=== PATIENT | male | born 1950 | race Caucasian/White ===

== ENCOUNTER → 2024-06-04 | Outpatient (CLI) | payer OTHER, SELFPAY ==
--- NOTE | 2024-06-04 | PROSBIL_PTH ---
PATHOLOGY RESULTS PATIENT: FAMILIA GLEASON LOC: [facility] U#:[id number] AGE/SX: 73/M ROOM: RE06/04/[address]: Dr. Sarabjit King MD : 1950 BED: DIS: 06/04/2024 SPEC #: [id number] RECD: 06/05/24 09:52 STATUS: JAY FERNANDO #: [id number] BETTINA: 06/04/24 00:[address]: Sarabjit King DEPT: SURGICAL PATHOLOGY RECD BY: Randee Christian ENTERED: 06/05/24 09:53 SP TYPE: PROST BX Tissues: PROSTATE RIGHT PROSTATE RIGHT PROSTATE RIGHT PROSTATE LEFT PROSTATE LEFT PROSTATE LEFT Procedures: PROSTATE BX HEADER OPERATION: Prostate biopsy PRE-OP DIAGNOSIS: Elevated PSA TISSUE SUBMITTED: A - Right apex, B - Right mid, C - Right base, D - Left apex, E - Left mid, F - Left base MICROSCOPIC DIAGNOSIS A. Right prostate, apex, core biopsy: Prostatic tissue, negative for malignancy. Focal mild chronic inflammation. B. Right prostate, mid, core biopsy: Focal high-grade prostatic intraepithelial neoplasia (HGPIN). C. Right prostate, base, core biopsy: Prostatic adenocarcinoma. Quique grade: 5+4=9 Number of cores involved: 1/1 Proportion of tissue involved: ~80% Perineural invasion: Not identified. Greatest tumor length: 0.8cm Chronic inflammation. D. Left prostate, apex, core biopsy: Prostatic adenocarcinoma. Lancing grade: 5+4=9 Number of cores involved: 1/1 Proportion of tissue involved: ~70 % Perineural invasion: Suspected Greatest tumor length: 0.7 cm E. Left prostate, mid, core biopsy: Prostatic adenocarcinoma. Lancing grade: 4+3=7 Number of cores involved: 1/1 Proportion of tissue involved: ~90% Perineural invasion: Not identified. Greatest tumor length: 1.0cm Chronic inflammation. See comment. F. Left prostate, base, core biopsy: Prostatic adenocarcinoma. Quique grade: 4+3=7 Number of cores involved: 1/1 Proportion of tissue involved: ~90% Perineural invasion: Not identified. Greatest tumor length: 1.0 cm See comment. 06/06/2024 COMMENT E & F. Focal tertiary pattern, Lancing grade 5 is also noted. MICROSCOPIC DESCRIPTION Slides are reviewed. GROSS DESCRIPTION A - Received is one container designated prostate, right apex. The specimen consists of one elongated fragment of light riley-white soft tissue measuring 0.7 cm in length and 0.1 cm in diameter. The specimen is totally submitted in one cassette. B - Received is one container designated prostate, right mid. The specimen consists of one elongated fragments of light riley-white soft tissue measuring 0.7 cm in length and 0.1 cm in diameter. The specimen is totally submitted in one cassette. C - Received is one container designated prostate, right base. The specimen consists of one elongated fragments of light riley-white soft tissue measuring 1.0 cm in length and 0.1 cm in diameter. The specimen is totally submitted in one cassette. D - Received is one container designated prostate, left apex. The specimen consists of one elongated fragments of light riley-white soft tissue measuring 1.2 cm in length and 0.1 cm in diameter. The specimen is totally submitted in one cassette. E - Received is one container designated prostate, left mid. The specimen consists of one elongated fragments of light riley-white soft tissue measuring 1.2 cm in length and 0.1 cm in diameter. The specimen is totally submitted in one cassette. F - Received is one container designated prostate, left base. The specimen consists of one elongated fragments of light riley-white soft tissue measuring 1.3 cm in length and 0.1 cm in diameter. The specimen is totally submitted in one cassette. / [email or web address] 06/05/2024 TC:0 [facility]: [id number] [phone]
== END | disposition home or self-care (01) ==
PROVIDERS: Referring Provider Urology; Visit Provider Urology
DX: R97.20 Elevated prostate specific antigen [PSA] (principal)
CPT/HCPCS: 88305; G0416

== ENCOUNTER → 2024-07-02 | Outpatient (CLI) | payer SELFPAY, OTHER | END | disposition home or self-care (01) | PROVIDERS: PCP Nurse Practitioner Family; Referring Provider Urology; Visit Provider Urology | DX: C61 Malignant neoplasm of prostate (principal) | CPT/HCPCS: 78815; A9595 ==

== ENCOUNTER 2025-06-23 17:05 | Emergency (ER) | payer OTHER, SELFPAY ==
[2025-06-23 17:07] VITALS: BP 214/106; PULSE 72; RESP 18; TEMP 36.2; O2SAT 98; BMI 31.4
--- NOTE | 2025-06-23 17:40 | EKG12_ITS ---
Test Reason : Blood Pressure : */* mmHG Vent. Rate : 69 BPM Atrial Rate : 69 BPM P-R Int : 158 ms QRS Dur : 98 ms QT Int : 404 ms P-R-T Axes : 13 -30 25 degrees QTcB Int : 432 ms Normal sinus rhythm Left axis deviation Incomplete right bundle branch block Abnormal ECG Confirmed by SUJEY ALLRED, EHNRY ([id number]), fan mail editor AMY MERCEDES ([id number]) on 06/25/2025 9:12:50 AM Referred By: Confirmed By: HENRY RM MD
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
--- NOTE | 2025-06-23 18:00 | RAD_ITS ---
PROCEDURE: CHEST 1 VIEW (PORTABLE) 06/23/2025 REASON FOR EXAM: CHEST PAIN TECHNIQUE: Frontal view of the chest. COMPARISON: None. FINDINGS: Lungs/Pleura: Clear. No focal consolidation, pneumothorax or sizable pleural effusion. Probable subcentimeter calcified granulomas in the right lung base. Heart/Mediastinum: Mildly enlarged. No significant vascular congestion. Bones/Soft tissues: Mild degenerative changes of the spine. RAD/Chest 1 View (Portable) IMPRESSION: No evidence of acute cardiopulmonary disease. Reading Location: [id number]
[2025-06-23 18:06] VITALS: BP 181/88; PULSE 68; RESP 18; O2SAT 98
[2025-06-23 18:07] LABS: Hematocrit 42.0 % (40-54); Hemoglobin 14.1 g/dL (13.0-16.5); Immature Granulocytes Count 0.010 X10^3/uL (0.0-0.0); Mean Corp Hgb Conc 33.6 g/dL (32-36); Mean Corpuscular Volume 86.8 fL (80-94); Mean Platelet Vol. 8.9 fl (6.2-12.0); NRBC Flagged by Analyzer 0 % (0-5); Platelet Count 257 K/mm3 (150-450); RBC Distribution Width CV 13.1 % (11.6-14.6); RBC Distribution Width SD 41.1 fl (35.1-43.9); Red Blood Count 4.84 M/mm3 (4.6-6.2); White Blood Count 4.5 K/mm3 (4.4-11.0)
[2025-06-23 18:44] LABS: Anion Gap 10 (5-15); BUN 15 mg/dL (4-19); BUN/Creat Ratio 22.5 RATIO (10-20); Calcium,Total 9.4 mg/dL (7.6-11.0); Carbon Dioxide 25.6 mmol/L (21.0-32.0); Chloride 105 mmol/L (98-108); Estimated Creatinine Clearance 92.89 ml/min (50-250); Glucose 170 mg/dL (70-99); Potassium 3.7 mmol/L (3.3-5.1); Troponin T High Sensitivity 12 ng/L (<=22)
[2025-06-23 19:00] VITALS: BP 170/90; PULSE 68; RESP 14; O2SAT 97
[2025-06-23 20:00] VITALS: BP 171/80; PULSE 68; RESP 15; O2SAT 99
[2025-06-23 20:34] LABS: Troponin T High Sens 2 HR 11 ng/L (<=22)
[2025-06-23 21:00] VITALS: BP 181/81; PULSE 65; RESP 15; O2SAT 97
[2025-06-23 21:19] VITALS: BP 181/81; PULSE 64; RESP 18; TEMP 36.6; O2SAT 99
== END 2025-06-23 21:23 | disposition home or self-care (01) ==
PROVIDERS: Emergency Provider Emergency Medicine; PCP Nurse Practitioner Family; Visit Provider Emergency Medicine
DX: R07.9 Chest pain, unspecified (principal); E11.9 Type 2 diabetes mellitus without complications; I10 Essential (primary) hypertension; R06.02 Shortness of breath; Z79.84 Long term (current) use of oral hypoglycemic drugs; Z79.82 Long term (current) use of aspirin
CPT/HCPCS: 71045; 80048; 84484; 85025; 93005; 99284; A4216

== ENCOUNTER → 2025-06-25 | Outpatient (CLI) | payer SELFPAY, OTHER ==
--- OUTSIDE RECORDS SUMMARY | 2025-06-25 05:53 | XMS RPT_ITS | CCD ---
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 Name Role Phone MIRLANDE ROSENBERGAshu Unavailable Unavailable UMESH PALOMINO Unavailable Unavailable ELODIA DESAI Attending Unavailable ELODIA DESAI Primary Care Unavailable ELODIA DESAI Admitting Unavailable UMESH PALOMINO Consulting Unavailable PROVIDER, UNKNOWN Consulting Unavailable Umesh Palomino DO Primary Care Provider [phone] Sarabjit King Attending Unavailable Marysol, Faviola Jyoti Primary Care Unavailable FernandoSarabjit nascimento Attending Unavailable Marysol, Faviola Jyoti Primary Care Unavailable Sarabjit King Referring Unavailable Sarabjit King Referring Unavailable Sarabjit King Attending Unavailable MARYSOL DRUMMOND-AYUSH, FAVIOLA Primary Care Physician MARYSOL DRUMMOND-AYUSH, FAVIOLA Primary Care Unavaila phani KATZ MD, DR SUAREZ Attending Unavailab UMESH Villeda Primary Care Unavailable JJ PETERSEN Attending UnavailJJ Meyer Admitting UnavailShannon Campbell CNP Primary Care Provider SHANNON DOE Primary Care Unavailable SYL AJ Attending Unavailable UMESH PALOMINO Primary Care Unavailable TATIANA CARRERO Referring Unavailable SHANNON DOE Primary Care Unavailable CHET JOYCE Attending Unavailwestley e UMESH PALOMINO Primary Care Unavailable FERNANDEZ MARTE Referring Unavailable UMESH PALOMINO Primary Care Unavailable TATIANA CARRERO Referring Unavailable UMESH PALOMINO Primary Care Unavailable FERNANDEZ MARTE Referring Unavailable FERNANDEZ MARTE Attending Unavailable UMESH PALOMINO Primary Care Unavailable FERNANDEZ MARTE Referring Unavailable UMESH PALOMINO Referring Unavailable UMESH PALOMINO Primary Care Unavailable FERNANDEZ MARTE Attending Unavailable Allergies Allergy Classification Reported Allergen(s) Allergy Type Date of Onset Reaction(s) Facility (20 sources) HMG-CoA reductase inhibitor; Translations: [[id number] REDUCTASE INHIBITORS] Propensity to adverse reactions to drug 10-14-2020 Unknown [facility] (20 sources) Lisinopril; Translations: [LISINOPRIL] Drug Allergy 10-14-2020 Unknown [facility] (1 source) HMG-CoA reductase inhibitor; Translations: [statins] Drug allergy [facility] Medications Current Medications Medication Drug Class(es) Dates Sig (Normalized) Sig (Original) aspirin 81 mg delayed release oral tablet (18 sources) Platelet Aggregation Inhibitor, Nonsteroidal Anti-inflammatory Drug take 1 tablet by mouth once daily aspirin, enteric coated (ASPIRIN, ENTERIC COATED) 81 mg EC tablet Take 81 mg by mouth once daily. Active Diltiazem Hydrochloride ER 120 mg/24 hours oral capsule, extended release (1 source) Start: 10-28-2015 take 1 capsule by mouth every hour, then take 1 capsule by mouth twice daily Diltiazem Hydrochloride ER 120 mg/24 hours oral capsule, extended release Dose : 120 mg = 1 cap(s), Oral, BID, 0 Refill(s) Start Date: 10/28/15 Status: Ordered Repeat number: 1 flecainide acetate 50 mg oral tablet (1 source) Antiarrhythmic Start: 10-29-2015 flecainide 50 mg oral tablet Dose : 50 mg = 1 tab(s), Oral, q12h, PRN arrythmias, # 180 tab(s), 0 Refill(s) Start Date: 10/29/15 Status: Ordered Quantity: 180.0 Unit: tab(s) Repeat number: 1 glipiZIDE 5 mg oral tablet (19 sources) Sulfonylurea Start: 10-28-2015 glipiZIDE 5 mg oral tablet Dose : 5 mg = 1 tab(s), Oral, qDay, # 30 tab(s), 0 Refill(s) Start Date: 10/28/15 Status: Ordered Quantity: 30.0 Unit: tab(s) Repeat number: 1 insulin NPH human isophane (NOVOLIN N FLEXPEN SUBCUTANEOUS) (18 sources) insulin NPH kellen n isophane (NOVOLIN N FLEXPEN SUBCUTANEOUS) Inject subcutaneously. Active magnesium oxide 420 mg oral tablet (1 source) Start: 10-28-2015 magnesium oxide 420 mg oral tablet Dose : 420 mg = 1 tab(s), Oral, BID, 0 Refill(s) Start Date: 10/28/15 Status: Ordered Repeat number: 1 metFORMIN hydrochloride 1000 mg oral tablet (19 sources) Biguanide Start: 10-29-2015 metFORMIN 1000 mg oral tablet Dose : 1,000 mg = 1 tab(s), Oral, BID, # 180 tab(s), 0 Refill(s) Start Date: 10/29/15 Status: Ordered Quantity: 180.0 Unit: tab(s) Repeat number: 1 omega-3 fatty acids (SUPER OMEGA-3 ORAL) (18 sources) omega-3 fatty ac ids (SUPER OMEGA-3 ORAL) Take by mouth twice daily. Active omega-3 polyunsaturated fatty acids 350 mg oral capsule (1 source) Start: 10-28-2015 omega-3 polyunsaturated fatty acids 350 mg oral capsule Dose : 350 mg = 1 cap(s), Oral, BID, # 30 cap(s), 0 Refill(s) Start Date: 10/28/15 Status: Ordered Quantity: 30.0 Unit: cap(s) Repeat number: 1 potassium chloride 20 meq oral tablet (1 source) Start: 10-28-2015 potassium chloride 20 mEq oral tablet, extended release Dose : 10 mEq = 0.5 tab(s), Oral, qDay, # 30 tab(s), 0 Refill(s) Start Date: 10/28/15 Status: Ordered Quantity: 30.0 Unit: tab(s) Repeat number: 1 rivaroxaban 20 mg oral tablet (1 source) Factor Xa Inhibitor Start: 10-28-2015 Xarelto 20 mg oral tablet Dose : 20 mg = 1 tab(s), Oral, with supper, 0 Refill(s) Start Date: 10/28/15 Status: Ordered Repeat number: 1 tamsulosin hydrochloride 0.4 mg oral capsule (10 sources) alpha-Adrenergic Gillian Start: 09-23-2024 take 2 capsules by mouth once daily at bedtime tamsulosin (FLOMAX) 0.4 mg Take 2 capsules by mouth daily at bedtime. 60 capsule 6 09/23/2024 Active Completed/Discontinued Medications Medication Drug Class(es) Dates Sig (Normalized) Sig (Original) ciprofloxacin 500 mg oral tablet (10 sources) Quinolone Antimicrobial Start: 09-23-2024 End: 11-27-2024 take 1 tablet by mouth twice daily ciprofloxacin HCl (CIPRO) 500 mg tablet Take 1 tablet by mouth two times a day. 20 tablet 09/23/2024 11/27/2024 Discontinued (Course of therapy completed) telmisartan 40 mg oral tablet (18 sources) Angiotensin 2 Receptor Gillian End: 11-27-2024 take 1 tablet by mouth once daily telmisartan (MICARDIS) 40 mg tablet Take 40 mg by mouth once daily. 11/27/2024 Discontinued (Course of therapy completed) Problems Active Problems Problem Classification Problem Date Documented Date Episodic/Chronic Cancer of prostate (10 sources) Malignant tumor of prostate; Translations: [Malignant neoplasm of prostate] Onset: 07-28-2024 07-22-2024 Chronic Cancer of prostate (1 source) Personal history of malignant neoplasm of prostate; Translations: [Encounter for follow-up surveillance of prostate cancer] Onset: 04-17-2025 Episodic Cardiac dysrhythmias (20 sources) Paroxysmal atrial fibrillation; Translations: [Paroxysmal atrial fibrillation] Onset: 09-30-2021 Resolved: 09-30-2021 09-30-2021 Chronic Cardiac dysrhythmias (1 source) Palpitations 10-28-2015 Episodic Chronic obstructive pulmonary disease and bronchiectasis (1 source) Bronchitis; Translations: [Bronchitis, not specified as acute or chronic] Onset: 09-14-2024 Episodic Conduction disorders (16 sources) Incomplete right bundle branch block; Translations: [Unspecified right bundle-branch block] Onset: 09-05-2024 09-05-2024 Chronic Diabetes mellitus without complication (20 sources) Type 1 diabetes mellitus without complications; Translations: [Type 2 diabetes mellitus without complication] Onset: 09-30-2021 09-30-2021 Chronic Diverticulosis and diverticulitis (1 source) Diverticulosis of large intestine without perforation or abscess without bleeding; Translations: [Diverticulosis of large intestine without perforation or abscess without bleeding] Onset: 05-19-2023 Chronic Essential hypertension (20 sources) Essential (primary) hypertension; Translations: [Essential hypertension] Onset: 09-30-2021 09-30-2021 Chronic Heart valve disorders (6 sources) Aortic valve sclerosis; Translations: [Other nonrheumatic aortic valve disorders] Onset: 09-30-2021 09-30-2021 Chronic Hemorrhoids (2 sources) Residual hemorrhoidal skin tags; Translations: [Other hemorrhoids] Onset: 05-19-2023 Episodic Hyperplasia of prostate (14 sources) Benign prostatic hyperplasia; Translations: [Benign prostatic hyperplasia with lower urinary tract symptoms] Onset: 09-05-2024 09-05-2024 Chronic Other aftercare (1 source) Long-term current use of drug therapy; Translations: [skilled nursing (current) use of antithrombotics/antip latelets] 11-24-2024 Episodic Other aftercare (1 source) skilled nursing (current) use of antithrombotics/antip latelets; Translations: [Encounter for long-term (current) use of antiplatelets/antithr ombotics] Onset: 11-27-2024 Episodic Other aftercare (1 source) Encounter for follow-up examination after completed treatment for conditions other than malignant neoplasm; Translations: [Radiotherapy follow-up] Onset: 04-17-2025 Episodic Other aftercare (1 source) Encounter for follow-up examination after completed treatment for malignant neoplasm; Translations: [Encounter for follow-up surveillance of prostate cancer] Onset: 04-17-2025 Episodic Other male genital disorders (1 source) Erectile dysfunction following radiation therapy; Translations: [Erectile dysfunction following radiation therapy] Onset: 04-17-2025 Chronic Other nutritional; endocrine; and metabolic disorders (1 source) Obesity, unspecified; Translations: [Obesity, unspecified] Onset: 05-19-2023 Chronic Other nutritional; endocrine; and metabolic disorders (14 sources) Body mass index 30+ - obesity; Translations: [Body mass index (BMI) 30.0-30.9, adult] Onset: 09-05-2024 09-05-2024 Chronic Other nutritional; endocrine; and metabolic disorders (1 source) H/O: diabetes mellitus; Translations: [Personal history of other endocrine, nutritional and metabolic disease] 11-24-2024 Episodic Other nutritional; endocrine; and metabolic disorders (1 source) Personal history of other endocrine, nutritional and metabolic disease; Translations: [History of diabetes mellitus] Onset: 11-27-2024 Episodic Other screening for suspected conditions (not mental disorders or infectious disease) (4 sources) Encounter for screening for malignant neoplasm of colon; Translations: [Elevated prostate specific antigen [PSA]] Onset: 05-19-2023 Episodic Other upper respiratory infections (14 sources) H/O: infectious disease; Translations: [Acute upper respiratory infection, unspecified] Onset: 09-05-2024 09-05-2024 Episodic Residual codes; unclassified (20 sources) Sleep apnea; Translations: [Sleep apnea, unspecified] 10-16-2020 Chronic Residual codes; unclassified (19 sources) Non-smoker; Translations: [Other specified health status] Onset: 09-30-2021 09-30-2021 Episodic Past or Other Problems Problem Classification Problem Date Documented Da te Episodic/Chronic Other aftercare (18 sources) Long-term current use of anticoagulant; Translations: [skilled nursing (current) use of anticoagulants] Onset: 09-30-2021 09-30-2021 Episodic Residual codes; unclassified (20 sources) Past history of procedure; Translations: [Personal history of other medical treatment] Onset: 10-21-2014 09-30-2021 Episodic Residual codes; unclassified (1 source) Other specified health status; Translations: [Non-smoker] Onset: 09-30-2021 Episodic Results Test Name Value Interpretation Reference Range Facility [facility] 04-17-2025 CNOV Office Visit (LANEY ) HUBER PETERSON ([id number]) 1950 M Date Time Provider Department 04/17/25 11:00 AM CHET JOYCE During your visit today, we recorded the following information about you: Temperature Pulse Respiration Blood pressure 97.7 degrees 70/minute 18/minute 155/74 Weight 94.6 kg Chet Joyce APRN.CNP 04/17/2025 1:50 PM Signed Radiation Oncology - Follow Up Note SURV[facility]ORSHIP PATIENT NAME: Huber Peterson PATIENT DIAGNOSIS: Huber Peterson is a 74 year old gentleman with adenocarcinoma of the prostate, initial PSA of 13.27 ng/mL, Sigel of 4+5=9, T2a. Status post I-125 seed implantation on 09/24/2024. INTERVAL HISTORY: The patient presents for routine follow-up. He was last seen on by Patient was diagnosed with prostate cancer and underwent brachytherapy in August. Prior to treatment, his PSA was 18 ng/mL. In January, his PSA decreased to 5.09 ng/mL. He has been monitored by his primary care provider, who orders PSA tests every six months. Since treatment, he reports urinary symptoms, including a weak stream, urgency, and occasional incomplete emptying, which have improved over the past few weeks. He denies nocturia and significant incontinence but notes that drinking water triggers frequent urination. He experiences pain when delaying urination, sometimes resulting in hematuria, but a recent urinalysis showed no infection. He is currently taking tamsulosin 0.4 mg once daily in the evening, which has helped with symptoms. He attempted to discontinue tamsulosin but found it difficult to initiate urination without it. He reports regular bowel movements (1-2 per day) without hematochezia. He is not sexually active and is not taking medication for erectile dysfunction. He denies chest pain, shortness of breath, fatigue, or new joint swelling. He reports a sore knee, which has improved. He maintains a stable weight, has a good appetite, and remains physically active through work. He denies smoking or alcohol use. He is up to date on preventive health measures, including a colonoscopy within the last two years, which showed no significant findings. PSA HISTORY: 01/2025: 5 waiting for scanned documents from OSH patient to fax 10/14/2024 18.53 09/05/2024 22.31 ALLERGIES: Allergies: Lisinopril Unknown Dsorstt-Pbt-Vzw Red* Unknown MEDICATIONS: Current Outpatient Medications on File Prior to Visit Medication Sig tamsulosin (FLOMAX) 0.4 mg Take 2 capsules by mouth daily at bedtime. (Patient taking differently: Take 0.4 mg by mouth two times a day.) insulin NPH human isophane (NOVOLIN N FLEXPEN SUBCUTANEOUS) Inject subcutaneously. omega-3 fatty acids (SUPER OMEGA-3 ORAL) Take by mouth twice daily. glipiZIDE (GLUCOTROL) 5 mg tablet Take 5 mg by mouth three times daily. aspirin, enteric coated (ASPIRIN, ENTERIC COATED) 81 mg EC tablet Take 81 mg by mouth once daily. metFORMIN (GLUCOPHAGE) 1,000 mg tablet Take 1,000 mg by mouth three times daily. No current facility-administered medications on file prior to visit. The patient reports the following pertinent history: D/N = variable based intake /0 Hematuria: No Dysuria: Yes Incontinence: Yes Urgency: moderate Frequency (urinate again less than 2hrs after you finished): 2 (less than half the time) Incomplete emptyin (less than 1 time in 5) Intermittency (stopping and starting several times during urination): 0 (not at all) Weak stream: 2 (less than half the time) Straining( push or strain to urinate): 1 (less than 1 time in 5) Medications to aid urination: flomax 1 cap per night Bowel movement frequency: 1-2/day Bowel movement quality: normal Blood per rectum: No Last Colonoscopy:with the last 2 years Sexual activity: Unable to maintain erections Erectile dysfunction: Medications for erectile dysfunction: ADT:no REVIEW OF SYSTEMS: Constitutional: (-) weight change, (-) fatigue, (-) decreased appetite, (-) sleep disturbance Cardiovascular: (-) chest pain Respiratory: (-) shortness of breath Gastrointestinal: (-) hematochezia Genitourinary: (+) slow urinary stream, (+) urinary urgency, (+) urinary frequency, (+) incomplete bladder emptying, (+) straining to void, (+) hematuria, (+) dysuria, (+) urinary incontinence, (+) erectile dysfunction, (-) nocturia Musculoskeletal: (+) knee pain Neurological: (+) left leg pain Survivorship Review of Systems Patient identified the following survivorship concerns related to his recent cancer diagnosis and treatment: Cardiac Toxicity: No Emotional Health: No Cognitive Function: No Fatigue/Sleep: No Lymphedema: No Pain: No Endocrine: No Sexual Function: Yes, Yes Concerns regarding sexual function, sexual activity, sexual relationships or sex life? No Fertility difficulties? No Healthy Lifestyle: Ye (more content not included)... Normal [facility] CNOVon 11-27-2024 CNOV Office Visit (CAUNDO ) HUBER PETERSON ([id number]) 1950 M Date Time Provider Department 11/27/24 9:00 AM SYL AJ During your visit today, we recorded the following information about you: Pulse Blood pressure Weight Height 78/minute 130/82 93.2 kg 1.753 m Syl Aj APRN.HOSPICE AIDE 11/27/2024 1:08 PM S[address] [facility] Department of Cardiology Referring Provider: No ref. provider found Date: November 27, 2024 Chief Complaint: Established patient, in atrial fibrillation Subjective: Huber Peterson is a 74 year old male who presents with a history of atrial fibrillation, status post-ablation, presenting for evaluation of cholesterol management and follow-up. The patient reports well-controlled blood glucose levels. Recent labs from wellness check,finding total cholesterol 280 and LDL 144. He recently started a new hypercholesterolemia (unsure of the name of the medication), prescribed by his clinician, after experiencing myalgias with prior statin therapy. He also takes fish oil supplements. He consumes cheese almost daily and acknowledges the need to reduce his intake. He denies any bleeding symptoms such as epistaxis, melena, or easy bruising. He has a history of atrial fibrillation and underwent an ablation performed by Dr. De Los Santos. He denies experiencing palpitations, tachycardia, or chest pain. He notes occasional dyspnea, which he attributes to age. He denies any new onset of dyspnea. He underwent brachytherapy for prostate cancer in August and is currently taking tamsulosin, one capsule in the morning and one in the evening, to manage urinary symptoms and assist with blood pressure control. He denies any episodes of dizziness. He is monitored with PSA levels every six months. He has a family history of prostate cancer in his grandfather. 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 anticoagulants on Xarelto 20mg Nonrheumatic atrial fibrillation (HCC) Personal history of other diseases of the circulatory system Prostate cancer (HCC) Sleep apnea Status post cryoablation 10/29/2015 successful isolation of all four pulmonary veins PAST SURGICAL HISTORY Procedure Laterality Date LEG SURGERY HX 10/2017 leg fx PAST SURGICAL HISTORY OF surgery for sleep apnea PAST SURGICAL HISTORY OF 09/24/2024 BRCA therapy for Prostate cancer TONSILLECTOMY HX FAMILY HISTORY Problem Relation Age of Onset Cancer Mother Heart Attack Father 66 other (arrhythmias) Sister other (rheumatic fever) Brother SOCIAL HISTORY: Tobacco Use: Never Alcohol Use: Never Drug Use: Never Employer And Job Title: None on file Years Of Education Completed: Not specified Marital Status: MEDICATIONS: Current Outpatient Medications Medication Sig tamsulosin (FLOMAX) 0.4 mg Take 2 capsules by mouth daily at bedtime. (Patient taking differently: Take 0.4 mg by mouth two times a day.) insulin NPH human isophane (NOVOLIN N FLEXPEN SUBCUTANEOUS) Inject subcutaneously. omega-3 fatty acids (SUPER OMEGA-3 ORAL) Take by mouth twice daily. glipiZIDE (GLUCOTROL) 5 mg tablet Take 5 mg by mouth three times daily. aspirin, enteric coated (ASPIRIN, ENTERIC COATED) 81 mg EC tablet Take 81 mg by mouth once daily. metFORMIN (GLUCOPHAGE) 1,000 mg tablet Take 1,000 mg by mouth three times daily. No current facility-administered medications for this visit. I have personally reviewed the patients past medical history including social, family, surgical, diagnostics, and medications./AB REVIEW OF SYSTEMS: Review of Systems Constitutional: Negative for chills and fatigue. Respiratory: Positive for chest tightness and shortness of breath. Cardiovascular: Positive for palpitations. Negative for chest pain and leg swelling. Neurological: Negative for dizziness, syncope, weakness and light-headedness. Hematological: Bruises/bleeds easily. Psychiatric/Behavioral: Negative for confusion and hallucinations. Vitals: BP 130/82 (BP Site: Left Arm, BP Position: Sitting) Pulse 78 Ht 175.3 cm (5' 9) Wt 93.2 kg (205 lb 7.5 oz) SpO2 98% BMI 30.34 kg/m? PHYSICAL EXAMINATION: BP 130/82 (BP Site: Left Arm, BP Position: Sitting) Pulse 78 Ht 175.3 cm (5' 9) Wt 93.2 kg (205 lb 7.5 oz) SpO2 98% BMI 30.34 kg/m? Last 3 Encounter BP Readings: Date: BP: 10/14/2024 179/72[md notified[ 09/24/2024 192/93 09/05/2024 152/76 Last 3 E (more content not included)... [facility] ECG COMPLETEon 11-27-2024 ECG COMPLETE Ventricular Rate : 7 8 BPM Atrial Rate : 78 BPM P-R Interval : 146 ms QRS Duration : 90 ms Q-T Interval : 394 ms QTC Calculation(Bazett) : 449 ms Calculated P [place] : 27 degrees Calculated R [place] : -55 degrees Calculated T [place] : 54 degrees Normal sinus rhythm Left axis deviation Abnormal ECG When compared with ECG of 08-Dec-2015 07:13, MANUAL COMPARISON REQUIRED PREVIOUS ECG IS INCOMPATIBLE Confirmed by KHANH STARR DO ([id number]) on 11/30/2024 7:39:23 AM NAME : SEAN PETERSONVIN PID : [id number] : 1950 Gender : Male Race : ORD : [id number] Procedure Date : Nov 27 2024 09:07:23 Edit Date : Nov 30 2024 07:39:26 Diagnosis: Normal sinus rhythm Left axis deviation Abnormal ECG When compared with ECG of 08-Dec-2015 07:13, MANUAL COMPARISON REQUIRED PREVIOUS ECG IS INCOMPATIBLE Confirmed by KHANH STARR DO ([id number]) on 11/30/2024 7:39:23 AM Test Reason : HCS Location : 2 : [place] Overread By : KHANH STARR DO Edited By : KHANH STARR DO Referred By : , Acquired by : , [facility] CNPNasrin 11-04-2024 CNPN Telephone (NudgeN) HUBER PETERSON ([id number]) 1950 M Date Time Provider Department 11/04/24 FERNANDEZ MARTE During your visit today, we recorded the following information about you: Connie Li 11/04/2024 8:56 AM Signed Huber called and wanted to know if the RT he had and or medications he takes would be the cause of his Afib and he said he has Aflutter. Huber would like a call back [phone] Frances Velez RN 11/04/2024 11:20 AM Signed Patient states he has a history of atrial fibrillation and had a cardiac ablation ~9 years ago. However patient has not received another diagnosis of afib/aflutter recently, he can just tell. Encouraged patient to reach out to his clinical services professional JACKY to evaluate his cardiac rhythm. If he is unable to reach them, he should contact his PCP or proceed to ED for evaluation. Educated patient on the risk of afib/aflutter causing CVA/UT. He verbalized understanding and will reach out to his clinical services professional. Frances Velez RN Allergies As of Date: 11/04/2024 Noted Allergy Reaction LISINOPRIL 10/14/2020 16 - Unknown HGHTSLN-MKH-[id number] REDUCTASE INHIBIT*10/14/2020 16 - Unknown Date Reviewed: 10/14/2024 Reviewed by: Frances Barraza OCCA - Fully Assessed Reason for Visit: Patient Question [7598] Prescriptions as of 11/04/2024 - ciprofloxacin HCl (CIPRO) 500 mg tablet Take 1 tablet by mouth two times a day. - tamsulosin (FLOMAX) 0.4 mg Take 2 capsules by mouth daily at bedtime. - telmisartan (MICARDIS) 40 mg tablet Take 40 mg by mouth once daily. - insulin NPH human isophane (NOVOLIN N FLEXPEN SUBCUTANEOUS) Inject subcutaneously. - omega-3 fatty acids (SUPER OMEGA-3 ORAL) Take by mouth twice daily. - glipiZIDE (GLUCOTROL) 5 mg tablet Take 5 mg by mouth three times daily. - aspirin, enteric coated (ASPIRIN, ENTERIC COATED) 81 mg EC tablet Take 81 mg by mouth once daily. - metFORMIN (GLUCOPHAGE) 1,000 mg tablet Take 1,000 mg by mouth three times daily. 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 [Z79.*09/30/2021 History of stress test [Z92.89] 11/12/2014 History of electrophysiologic study [Z98.890] 10/29/2015 History of echocardiogram [Z92.89] 10/21/2014 Essential hypertension [I10] 09/30/2021 Type 2 diabetes mellitus without complication (*09/30/2021 AF (paroxysmal atrial fibrillation) (HCC) [I48.*09/30/2021 Non-smoker [Z78.9] 09/30/2021 BMI 30.0-30.9,adult [Z68.30] 09/05/2024 Incomplete RBBB [I45.10] 09/05/2024 BPH (benign prostatic hyperplasia) [N40.0] 09/05/2024 Recent URI [J06.9] 09/05/2024 Encounter Status:Closed by FRANCES VELEZ on 11/04/24 [facility] Farshad 10-14-2024 CNOV Office Visit (RADTMN ) HUBER PETERSON ([id number]) 1950 M Date Time Provider Department 10/14/24 2:00 PM FERNANDEZ MARTE During your visit today, we recorded the following information about you: Pulse Respiration Blood pressure Weight 73/minute 18/minute 179/72 92.1 kg Fernandez Marte MD 10/14/2024 2:[address] [facility] CLINICAL NOTE Radiation Oncology PATIENT NAME: Huber Foote Nicholas CLINIC NO.: [id number] ATTENDING PHYSICIAN: Fernandez Marte M.D. DATE OF SERVICE: October 14, 2024 HPI: Huber Peterson is a gentleman with adenocarcinoma of the prostate, initial PSA of 13.27 ng/mL, Sigel of 4+5=9, T2a. Status post I-125 seed implantation on 09/24/2024. D/N = 6-8/2; bowel movements 1 per day; no dysuria ; no hematuria; no hematochezia ; weak force of stream; he is not potent. Physical exam of the prostate deferred, however, examination of his postoperative CAT scan demonstrates adequate seed positioning without evidence for periprostatic abscess formation or urinary retention. ASSESSMENT: Expected toxicity. PLAN: Please schedule F/U with Chet Joyce CNP in 6 months for survivorship visit, and with Dr. King in 1 year, with PSA prior to each visit. This note has been electronically signed. October 14, 2024 Fernandez Marte M.D. cc: [place] [id number] [address] Referring Provider: FERNANDEZ MARTE [[id number]] Allergies As of Date: 10/14/2024 Noted Allergy Reaction LISINOPRIL 10/14/2020 16 - Unknown [id number] REDUCTASE INHIBIT*10/14/2020 16 - Unknown Date Reviewed: 10/14/2024 Reviewed by: Frances Barraza OCCA - Fully Assessed Reason for Visit: Established Patient [175] Primary Visit Diagnosis:Malignant neoplasm of prostate (HCC) [C61] Prescriptions as of 10/14/2024 - ciprofloxacin HCl (CIPRO) 500 mg tablet Take 1 tablet by mouth two times a day. - tamsulosin (FLOMAX) 0.4 mg Take 2 capsules by mouth daily at bedtime. - telmisartan (MICARDIS) 40 mg tablet Take 40 mg by mouth once daily. - insulin NPH human isophane (NOVOLIN N FLEXPEN SUBCUTANEOUS) Inject subcutaneously. - omega-3 fatty acids (SUPER OMEGA-3 ORAL) Take by mouth twice daily. - glipiZIDE (GLUCOTROL) 5 mg tablet Take 5 mg by mouth three times daily. - aspirin, enteric coated (ASPIRIN, ENTERIC COATED) 81 mg EC tablet Take 81 mg by mouth once daily. - metFORMIN (GLUCOPHAGE) 1,000 mg tablet Take 1,000 mg by mouth three times daily. 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 Follow-up and Disposition History for Encounter Date Provider Department Center 10/14/2024 [id number] MARTE [facility] Encounter Status:Closed by FERNANDEZ MARTE on 10/14/24 [facility] Tammy 10-09-2024 SIMRAN Telephone (EnablonNEGRITO) HUBER PETERSON ([id number]) 1950 M Date Time Provider Department 10/09/24 FRANCES VELEZ During your visit today, we recorded the following information about you: Frances Velez RN 10/09/2024 11:28 AM Signed RADIATION POST TREATMENT CALL BACK Today's date: October 09, 2024 Patient's final treatment on 09/24/24. Treatment site: Brachytherapy Called patient to follow-up on symptom management and follow-up appointments. Message left for Huber. Follow up appointment: Reminded patient of face to face visit on 10/14/2024 with Fernandez Marte M.D. Frances Velez RN Allergies As of Date: 10/09/2024 Noted Allergy Reaction LISINOPRIL 10/14/2020 16 - Unknown [id number] REDUCTASE INHIBIT*10/14/2020 16 - Unknown Date Reviewed: 09/24/2024 Reviewed by: Dakota Merino RN - Fully Assessed Reason for Visit: Post Radiation Treatment Follow Up [[id number]] Brass Plater - Other [3602] Prescriptions as of 10/09/2024 - ciprofloxacin HCl (CIPRO) 500 mg tablet Take 1 tablet by mouth two times a day. - tamsulosin (FLOMAX) 0.4 mg Take 2 capsules by mouth daily at bedtime. - telmisartan (MICARDIS) 40 mg tablet Take 40 mg by mouth once daily. - insulin NPH human isophane (NOVOLIN N FLEXPEN SUBCUTANEOUS) Inject subcutaneously. - omega-3 fatty acids (SUPER OMEGA-3 ORAL) Take by mouth twice daily. - glipiZIDE (GLUCOTROL) 5 mg tablet Take 5 mg by mouth three times daily. - aspirin, enteric coated (ASPIRIN, ENTERIC COATED) 81 mg EC tablet Take 81 mg by mouth once daily. - metFORMIN (GLUCOPHAGE) 1,000 mg tablet Take 1,000 mg by mouth three times daily. 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 09-24-2024 [facility] HNO ID: [id number] Author: ANNETTA HALE RT(R) Service: Radiology Author Type: Technologist Type: Allied Health Filed: 09/24/2024 11:31 Note Text: Radiology Service Progress Note PATIENT NAME: Huber Peterson DATE OF SERVICE: September 24, 2024 TIME: 11:30 AM PATIENT IDENTITY VERIFICATION COMPLETED USING TWO (2) IDENTIFIERS: Name and Date of confirmed by patient verbally. FALL SCREENING: Has the patient had 2 falls in the last year or 1 fall with injury or currently using an Ambulatory Assistive Device (Walker, Cane, Wheelchair, Crutches, etc.)? No PATIENT GENDER DATA: Assigned male at PATIENT RELEVANT IMPLANT DATA REVIEWED: Yes PATIENT PRESENTS WITH AN IMPLANTABLE OR ATTACHED TELEVISION SCRIPT WRITER: No RADIOLOGY DEPARTMENT: General X-ray: Exam(s) Completed: Pelvis X-Ray: Pelvis General AP PERIPHERAL IV DATA: Not applicable SIGNED BY: RT Rosendo(R) September 24, 2024 11:[address] [facility] ANES POSTPROC EVALon 025 ANES POSTPROC EVAL HNO ID: [id number] Author: RJ VILLALPANDO DO Service: Anesthesiology Author Type: Anesthesiologist Type: Anesthesia Postprocedure Evaluation Filed: 09/24/2024 13:17 Note Text: POST ANESTHESIA EVALUATION NOTE : 1950 Procedure Summary Date: 09/24/24 Room / Location: SP OR01 / SP OR Anesthesia Start: 0906 Anesthesia Stop: 1100 Procedures: INSERTION TRANSPERINEAL NEEDLES OR CATHETERS PROSTATE FOR INTERSTITIAL RADIOELEMENT APPLICATION (Prostate) ULTRASOUND TRANSRECTAL PROSTATE (Anus) APPLICATION INTERSTITIAL RADIATION SOURCE COMPLEX (Prostate) ULTRASONIC GUIDANCE FOR INTERSTITIAL RADIO ELEMENT APPLICATION (Anus) Diagnosis: Malignant neoplasm of prostate (HCC) (Malignant neoplasm of prostate (HCC) [C61]) Surgeons: Jj Petersen MD Responsible Provider: Rj Villalpando DO Anesthesia Type: general ASA Status: 3 Anesthesia Type: general Airway Type: LMA Last Vitals Vitals Value Taken Time BP 175/90 09/24/24 1145 Temp 36.5 ?C (97.7 ?F) 09/24/24 1100 HR SpO2 85 09/24/24 1145 Resp 20 09/24/24 1145 SpO2 94 % 09/24/24 1145 Post Anesthesia Patient Status Patient Evaluation: PACU. PACU/ICU Patient Condition: stable. Anticipated Disposition: phase 2 then home. Neurological Status: aware and responsive. Pulmonary Status: breathing comfortably on room air Airway Control: returned to baseline unsupported. Cardiovascular Status: stable. Pain Management: satisfactory to patient Postoperative Hydration: acceptable. Intraoperative Events: no significant anesthesia events Post Operative Nausea/Vomiting Status: no significant post operative nausea or vomiting Recommendation: continue current plan of care. Anesthesia Observations No Documentation SIGNATURE: Rj Villalpando DO PATIENT NAME: Huber Peterson DATE: September 24, 2024 TIME: 1:17 PM CSN: [id number] [facility] ANES PRE-OPon 09-24-2024 ANES PRE-OP HNO ID: [id number] Author: RJ VILLALPANDO DO Service: Anesthesiology Author Type: Anesthesiologist Type: Anesthesia Preprocedure Evaluation Filed: 09/24/2024 08:18 Note Text: ANESTHESIOLOGY DAY OF SURGERY NOTE : 1950 Procedure Information Date/Time: 09/24/24 0855 Procedures: INSERTION TRANSPERINEAL NEEDLES OR CATHETERS PROSTATE FOR INTERSTITIAL RADIOELEMENT APPLICATION (Pelvis) ULTRASOUND TRANSRECTAL PROSTATE (Pelvis) CYSTOSCOPY FLEXIBLE (Pelvis) APPLICATION INTERSTITIAL RADIATION SOURCE COMPLEX (Pelvis) ULTRASONIC GUIDANCE FOR INTERSTITIAL RADIO ELEMENT APPLICATION (Pelvis) Location: SP OR01 / SP OR Surgeons: Jj Petersen MD Estimated body mass index is 30.72 kg/m? as calculated from the following: Height as of this encounter: 175.3 cm (5' 9). Weight as of this encounter: 94.3 kg (208 lb). Most recent hematocrit and potassium results: Hematocrit 43.8 09/05/2024 Potassium 4.4 09/05/2024 Relevant Problems ANESTHESIA (+) Sleep apnea CARDIO (+) AF (paroxysmal atrial fibrillation) (HCC) (+) Essential hypertension (+) Incomplete RBBB ENDO (+) Type 2 diabetes mellitus without complication (HCC) NEURO-PSYCH (+) Recent URI PULMONARY (+) Recent URI (+) Sleep apnea I - PHYSICAL EVALUATION AIRWAY Patient intubated: No. Mallampati: II. TM distance: >3 FB. Neck ROM: full ROM without neurological symptoms. Mouth opening: adequate. Short neck: no. Thick neck: no Jackson present: yes Microretrognathia/Micronagt hia/Recessed Chin: No DENTAL Dental findings: teeth intact. Additional exam findings: no II - ANESTHESIA PLAN ASA Score: 3 Anesthetic Plan: general The patient is not a current smoker. NPO Status: adequate Beta Gillian Monitoring Plan Monitoring plan: standard ASA. Post Procedure Analgesic Plan Postoperative analgesic plan: multimodal analgesia. Informed Consent Anesthetic risks, benefits, alternatives, personnel and consent discussed: yes. Patient / Responsible Democrat agrees to proceed: yes Patient / Surrogate agrees to blood products: blood products not planned Potential Anesthesia issues that may suggest increased risk of complications or contraindication to planned procedure: none. Vitals Value Taken Time BP 213/95 09/24/24 0800 Pulse 82 09/24/24 0800 Resp 18 09/24/24 0800 Temp 36.7 ?C (98.1 ?F) 09/24/24 08 SpO2 97 % 09/24/24 0800 Facility-Administered Medications as of 09/24/2024 Medication Dose Route Frequency lidocaine 10 mg/mL (1 %) 1-2 mg injection (XYLOCAINE) 0.1-0.2 mL INTRADERMAL PRN NaCl 0.9% iv flush bag 20 mL INTRAVENOUS PRN ceFAZolin iv piggyback 2 g in D5W (iso-osmotic) 100 mL (ANCEF) 2 g INTRAVENOUS Pre-Op Once [COMPLETED] sodium phosphate-sodium bisphosphate 133 mL enema (FLEET) 133 mL RECTAL ONCE hydrALAZINE 10 mg injection (APRESOLINE) 10 mg INTRAVENOUS ONCE Outpatient Medications as of 09/24/2024 Medication Sig telmisartan (MICARDIS) 40 mg tablet Take 40 mg by mouth once daily. insulin NPH human isophane (NOVOLIN N FLEXPEN SUBCUTANEOUS) Inject subcutaneously. omega-3 fatty acids (SUPER OMEGA-3 ORAL) Take by mouth twice daily. aspirin, enteric coated (ASPIRIN, ENTERIC COATED) 81 mg EC tablet Take 81 mg by mouth once daily. metFORMIN (GLUCOPHAGE) 1,000 mg tablet Take 1,000 mg by mouth three times daily. glipiZIDE (GLUCOTROL) 5 mg tablet Take 5 mg by mouth three times daily. I have interviewed and examined the patient. I have reviewed the medical record and/or the pre-anesthesia evaluation, pertinent labs, and test results. This contains updated information obtained within 48 hours of Surgery/Procedure. SIGNATURE: Rj Villalpando DO PATIENT NAME: Huber Peterson DATE: September 24, 2024 TIME: 8:15 AM CSN: [id number] [facility] HISTORY PHYSICALon HISTORY PHYSICAL HNO ID: [id number] Author: KAROLINE MENDEZ PA Service: Urology Author Type: Physician Editor House Organ Type: H&P Filed: 09/24/2024 08:14 Note Text: UPDATED HISTORY AND PHYSICAL EXAMINATION SERVICE DATE: 09/24/2024 SERVICE TIME: 7:50 AM SERVICE: Jj Petersen MD PHYSICAL EXAM MUST BE COMPLETED ON ADMISSION The History and Physical (completed in the past 30 days) has been reviewed and the patient has been examined. The contents accurately reflect the patient's condition with the following additions or revisions since the HANDP was completed. Patient denies any changes to health since last examination. Planned procedure for today is INSERTION TRANSPERINEAL NEEDLES OR CATHETERS PROSTATE FOR INTERSTITIAL RADIOELEMENT APPLICATION; ULTRASOUND TRANSRECTAL PROSTATE; CYSTOSCOPY FLEXIBLE; APPLICATION INTERSTITIAL RADIATION SOURCE COMPLEX; ULTRASONIC GUIDANCE FOR INTERSTITIAL RADIO ELEMENT APPLICATION Medication reconciliation list reviewed in [facility]. Past medical history, past surgical history, social history and family history reviewed and updated in [facility]. ALLERGIES Allergen Reactions Lisinopril Unknown Fmiifxb-Xpd-Tsr Red* Unknown BP (!) 213/95 Pulse 82 Temp 36.7 ?C (98.1 ?F) (Temporal) Resp 18 Ht 175.3 cm (5' 9) Wt 94.3 kg (208 lb) SpO2 97% BMI 30.72 kg/m? Examination indicates no changes. On examination today: Lungs: Clear to auscultation bilaterally. Heart: RRR, Normal S1/S2, with sporadic ectopic beats noted, No significant murmurs, rubs, gallops or thrills appreciated. Abdomen: BS+ in all quadrants, abdomen is soft, non tender, and without guarding. Assessment: Malignant neoplasm of prostate Plan: INSERTION TRANSPERINEAL NEEDLES OR CATHETERS PROSTATE FOR INTERSTITIAL RADIOELEMENT APPLICATION; ULTRASOUND TRANSRECTAL PROSTATE; CYSTOSCOPY FLEXIBLE; APPLICATION INTERSTITIAL RADIATION SOURCE COMPLEX; ULTRASONIC GUIDANCE FOR INTERSTITIAL RADIO ELEMENT APPLICATION This HANDP can be found in the Electronic Medical Record dated 09/05/24 by Tatiana Carrero APRN.HOSPICE AIDE . SIGNATURE: AIMEE Sanches PATIENT NAME: Huber Peterson DATE: September 24, 2024 TIME: 7:[address] [facility] OPERATIVE NOon 09-24-2024 OPERATIVE NO HNO ID: [id number] Author: JJ PETERSEN MD Service: Urology Author Type: Physician Type: Operative Report Filed: 09/24/2024 10:51 Note Text: Date of Procedure: September 24, 2024 SURGEON 1: Jj Petersen M.D. SURGEON 2: Fernandez Marte MD OPERATION: Transrectal ultrasound for prostate volume, dosimetry and guidance for percutaneous placement of I-125 seeds. ANESTHESIA: General. PREOPERATIVE DIAGNOSIS: Prostate cancer. POSTOPERATIVE DIAGNOSIS: Prostate cancer. OPERATIVE INDICATIONS: This gentleman has localized prostate cancer and has chosen to be treated with percutaneous placement of I-125 seeds. OPERATIVE FINDINGS: Transrectal ultrasound revealed a prostate more prominent left base than on the right, with associated hypoechoic area. The seminal vesicles were enlarged bilaterally. OPERATIVE PROCEDURE: Following satisfactory induction of general anesthesia, the patient was placed in the exaggerated lithotomy position and prepped and draped in routine fashion. A transrectal ultrasound probe was introduced and secured to the stepping device attached to the operating table. Complete transrectal ultrasonography with capture of transverse images of the prostate at 0.5 cm intervals was performed, and the information then used for prostate volume calculation and dosimetry purposes. Color doppler ultrasound of the prostate was performed and reviewed. Following generation of the treatment plan and loading of the I-125 seeds, transrectal ultrasound guidance was provided for percutaneous placement of I-125 seeds. In sequence, each needle was accurately localized using both transverse and longitudinal imaging after which the seeds were deployed. This was carried out until all of the needles loaded with sources according to the intraop plan had been inserted and the seeds deployed with the participation of radiation oncology. At the end of the case the patient was placed supine. He tolerated the procedure well and was returned to the recovery room in satisfactory condition. Anatomic Site: Prostate, Laterality: N/A Approach: Percutaneous Device: Radioactive element Qualifier: None ESTIMATED BLOOD LOSS: Minimal DRAINS: none SPECIMENS: none Accidental Punctures or Lacerations: none Procedure start: 9:17 am Procedure completed: 10:43 am I was present and performed the operative procedure Jj Petersen MD [facility] OPERATIVE NO HNO ID: [id number] Author: FERNANDEZ MARTE MD Service: Radiation Oncology Author Type: Physician Type: Operative Report Filed: 09/24/2024 10:45 Note Text: [place] [address] [place] OUTPATIENT OPERATIVE REPORT NAME: Huber [facility] #: [id number] DATE: September 24, 2024 AGE: [age] year old SURGEON 1: Fernandez Marte M.D. SURGEON 2: Jj Petersen M.D. START TIME: 916 FINISH TIME: 10:43 AM OPERATION: I-125 seed implant of the prostate and seminal vesicles. ANESTHESIA: General PREOPERATIVE DIAGNOSIS: Adenocarcinoma of the prostate, initial PSA of 13.27 ng/mL, Sigel of 4+5=9, T2a. POSTOPERATIVE DIAGNOSIS: same OPERATIVE INDICATIONS: Prostate Cancer OPERATIVE FINDINGS: Proper anatomy exists for the execution of the implant. OPERATIVE PROCEDURE: Patient was brought to the operating room and general anesthesia was induced. Following this, the patient was placed in exaggerated dorsal lithotomy position, the scrotum was retracted from the perineal skin using foam tape, the perineal skin was shaved, the rectum was irrigated with sterile saline, 20 cc of ultrasound-conducting gel was given as a rectal suppository, and the perineal skin was prepared using iodine scrub solution. Following this, the patient received a transrectal ultrasound probe transrectally and satisfactory images of the prostate and seminal vesicles were obtained. These images were then imported into a treatment-planning computer and a customized treatment plan was generated, calling for 148 sources (24 were loose and 124 were linked/stranded). These sources that were loaded into needles according to the treatment plan were then inserted and deployed with urology participation. Total activity in the patient was, therefore, 61.72 U. Following insertion of sources, the patient was not noted to require a cystoscopy. He was therefore taken out of exaggerated dorsal lithotomy position to the recovery room in satisfactory condition. Considerable time and effort was spent to accomplish the above described procedure. Based on published results from our institution (Int J Radiat Oncol Biol Phys, 2000 Nov 1:48(4):1241-4) that there is a significant improvement in dose coverage of the prostate when both the ultrasound study and treatment planning are combined in the same procedure as opposed to the traditional approach of pre-planning followed several weeks by seed implantation, I elected to perform the single step method. This method required coordination and substantial interaction among myself, the urologist, physicist and special procedure brachytherapy geotechnical engineering technician for: volume determination, needle placement, treatment planning, seed preparation (stranded and single) and seed insertion. ESTIMATED BLOOD LOSS: 10 cc. DRAINS: None. SPECIMENS: None. COMPLICATIONS: None. ATTESTATION: I was present and involved in all aspects of the treatment planning and execution of the treatment plan. Electronically signed on September 24, 2024 at 10:44 AM by Fernandez Marte M.D. [facility] XR PELVIS 1V APon 09-24-2024 XR PELVIS 1V AP * * *Final Report* * * DATE OF EXAM: Sep 24 2024 11:30AM [facility] [id number] - XR PELVIS 1V AP / PROCEDURE REASON: Post-operative / post-procedure assessment * * * * Physician Interpretation * * * * RESULT: EXAMINATION: XR PELVIS 1V AP HISTORY: PACU PORT POST BRACHYTHERAPY Post-operative / post-procedure assessment. TECHNIQUE: XR PELVIS 1V AP Laterality: NOT APPLICABLE Number of different views (projections): 1 M: XB_1 RESULT: There are multiple prostate brachytherapy seeds, which appear confined the prostate gland. Hip and sacroiliac joint spaces appear grossly preserved. Degenerative changes are seen within the visualized lower lumbar spine. Moderate stool burden. Presumed prior vasectomy. IMPRESSION: Prostate brachytherapy seeds. Transcribed Using Voice Recognition Transcribe Date/Time: Sep 24 2024 11:38A Dictated by: TIFFANIE YAÑEZ MD This examination was interpreted and the report reviewed and electronically signed by: TIFFANIE YAÑEZ MD on Sep 24 2024 11:39AM EST [id number] Normal [facility] 09-23-2024 [facility] Telephone (RADTMN) NICHOLASHUBER Foote ([id number]) 1950 M Date Time Provider Department 09/23/24 FRANCES VELEZ During your visit today, we recorded the following information about you: Frances Velez RN 09/23/2024 1:57 PM Signed VM left. Notified patient of medications sent to preferred pharmacy: [email or web address]. Educated patient to begin both Ciprofloxacin (Cipro) and Tamsulosin (Flomax) one day following their procedure. Patient is aware they will obtain procedure time from [facility]. Patient will obtain further instructions from care team following their procedure. Frances Velez RN Allergies As of Date: 09/23/2024 Noted Allergy Reaction LISINOPRIL 10/14/2020 16 - Unknown [id number] REDUCTASE INHIBIT*10/14/2020 16 - Unknown Date Reviewed: 09/05/2024 Reviewed by: Tatiana Carrero APRN.[facility] - Fully Assessed Reason for Visit: Brachytherapy [1541] Brass Plater - Other [7968] Prescriptions as of 09/23/2024 - ciprofloxacin HCl (CIPRO) 500 mg tablet Take 1 tablet by mouth two times a day. - tamsulosin (FLOMAX) 0.4 mg Take 2 capsules by mouth daily at bedtime. - telmisartan (MICARDIS) 40 mg tablet Take 40 mg by mouth once daily. - insulin NPH human isophane (NOVOLIN N FLEXPEN SUBCUTANEOUS) Inject subcutaneously. - omega-3 fatty acids (SUPER OMEGA-3 ORAL) Take by mouth twice daily. - glipiZIDE (GLUCOTROL) 5 mg tablet Take 5 mg by mouth three times daily. - aspirin, enteric coated (ASPIRIN, ENTERIC COATED) 81 mg EC tablet Take 81 mg by mouth once daily. - metFORMIN (GLUCOPHAGE) 1,000 mg tablet Take 1,000 mg by mouth three times daily. Problem List As Of Date 09/23/2024 Noted Resolved Sleep apnea [G47.30] Status post cryoablation [Z98.890] 10/29/2015 Nonrheumatic atrial fibrillation (HCC) [I48.91] 09/30/2021 09/30/2021 skilled nursing (current) use of anticoagulants [Z79.*09/30/2021 History of stress test [Z92.89] 11/12/2014 History of electrophysiologic study [Z98.890] 10/29/2015 History of echocardiogram [Z92.89] 10/21/2014 Essential hypertension [I10] 09/30/2021 Type 2 diabetes mellitus without complication (*09/30/2021 AF (paroxysmal atrial fibrillation) (HCC) [I48.*09/30/2021 Non-smoker [Z78.9] 09/30/2021 BMI 30.0-30.9,adult [Z68.30] 09/05/2024 Incomplete RBBB [I45.10] 09/05/2024 BPH (benign prostatic hyperplasia) [N40.0] 09/05/2024 Recent URI [J06.9] 09/05/2024 Encounter Status:Closed by FRANCES VELEZ on 09/23/24 [facility] 09-18-2024 SIMR[facility] Telephone (URON) HUBER PETERSON ([id number]) 1950 M Date Time Provider Department 09/18/24 YANA BRAXTON During your visit today, we recorded the following information about you: Yana Braxton APRN.CNP 09/18/2024 3:32 PM Signed ----- Message from Reyna Duggan MD sent at 09/18/2024 12:36 PM EST ----- Regarding: RE: nagging cough / Contact: Likely not, but anesthesia will see on day of surgery ----- Message ----- From: Nancy Boss Sent: 09/18/2024 10:02 AM EST To: Yana Braxton APRN.CNP; Reyna Duggan MD Subject: nagging cough / Pt is calling. He has a nagging cough from bronchitis does his surgery need to be rescheduled? Please advise Yana Braxton APRN.CNP 09/18/2024 3:41 PM Signed Huber Peterson is scheduled for brachytherapy on 09/24/2024. He saw [facility] on 09/05/2024. Called Huber Foote Nicholas. He reports that he was having some coughing prior to [facility] appointment, but I got sicker later on 09/05/2024. He had chest x-ray on 09/05/2024 and again at [facility] on 09/14/2024. Denies associated fever, chest pain, and shortness of breath. Says that has had similar symptoms and was admitted to [facility] on 09/14/2024 because SPO2 was too low. Huber Peterson did not have nasal swab in ER for flu and COVID but says that did with negative results. Asked Huber Peterson to reach out if symptoms worsen prior to 09/24/2024. Otherwise, he will be evaluated by anesthesia team on day of surgery. Yana Braxton APRN.CNP Allergies As of Date: 09/18/2024 Noted Allergy Reaction LISINOPRIL 10/14/2020 16 - Unknown [id number] REDUCTASE INHIBIT*10/14/2020 16 - Unknown Date Reviewed: 09/05/2024 Reviewed by: Tatiana Carrero APRN.HOSPICE AIDE - Fully Assessed Prescriptions as of 09/18/2024 - telmisartan (MICARDIS) 40 mg tablet Take 40 mg by mouth once daily. - insulin NPH human isophane (NOVOLIN N FLEXPEN SUBCUTANEOUS) Inject subcutaneously. - omega-3 fatty acids (SUPER OMEGA-3 ORAL) Take by mouth twice daily. - glipiZIDE (GLUCOTROL) 5 mg tablet Take 5 mg by mouth three times daily. - aspirin, enteric coated (ASPIRIN, ENTERIC COATED) 81 mg EC tablet Take 81 mg by mouth once daily. - metFORMIN (GLUCOPHAGE) 1,000 mg tablet Take 1,000 mg by mouth three times daily. 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 [Z79.*09/30/2021 History of stress test [Z92.89] 11/12/2014 History of electrophysiologic study [Z98.890] 10/29/2015 History of echocardiogram [Z92.89] 10/21/2014 Essential hypertension [I10] 09/30/2021 Type 2 diabetes mellitus without complication (*09/30/2021 AF (paroxysmal atrial fibrillation) (HCC) [I48.*09/30/2021 Non-smoker [Z78.9] 09/30/2021 BMI 30.0-30.9,adult [Z68.30] 09/05/2024 Incomplete RBBB [I45.10] 09/05/2024 BPH (benign prostatic hyperplasia) [N40.0] 09/05/2024 Recent URI [J06.9] 09/05/2024 Encounter Status:Closed by YANA BRAXTON on 09/18/24 Normal [facility] XR CHEST 2 VIEWSon XR CHEST 2 VIEWS ORIGINAL EXAMINATION: TWO XRAY VIEWS OF THE CHEST 09/14/2024 12:42 pm COMPARISON: 10/09/2015 CT angiogram of the chest HISTORY: ORDERING SYSTEM PROVIDED HISTORY: Reason for Exam: cough FINDINGS: Heart and mediastinal silhouette are normal. Multiple calcified granulomas are again noted. No visible airspace disease or pleural fluid. IMPRESSION: No visible acute process. Interpreted by: Isha Mccullough MD Preliminary Report By: Isha Mccullough MD Electronically signed By Isha Mccullough MD Dictated Date: 09/14/2024 12:46:19 PM Prelim Date: 09/14/2024 12:50:45 PM Sign Date: 09/14/2024 12:50:45 PM Ordering Provider: DANIELA KATZ Normal [facility] CBC W Auto Differential pane l (Bld)on 09-05-2024 Basophils (Bld) [#/Vol] 0.04 10*3/uL [facility] Basophils/100 WBC (Bld) 0.7 % [facility] Differential cell count method Nom (Bld) Auto [facility] Eosinophils (Bld) [#/Vol] 0.19 10*3/uL [facility] Eosinophils/100 WBC (Bld) 3.4 % [facility] Erythrocyte distribution width (RBC) [Ratio] 13.5 % 11.5 - 15.0 % [facility] Hematocrit (Bld) [Volume fraction] 43.8 % 39.0 - 51.0 % [facility] Hemoglobin (Bld) [Mass/Vol] 14.5 g/dL 13.0 - 17.0 g/dL [facility] Immature granulocytes (Bld) [#/Vol] [facility] Immature granulocytes/100 WBC (Bld) 0.2 % [facility] Interpretation and review of laboratory results Abnormal [facility] Lymphocytes (Bld) [#/Vol] 0.84 10*3/uL Low [facility] Lymphocytes/100 WBC (Bld) 14.9 % [facility] MCH (RBC) [Entitic mass] 28.4 pg 26.0 - 34.0 pg [facility] MCHC (RBC) [Mass/Vol] 33.1 g/dL 30.5 - 36.0 g/dL [facility] MCV (RBC) [Entitic vol] 85.9 fL 80.0 - 100.0 fL [facility] Monocytes (Bld) [#/Vol] 0.48 10*3/uL NINF [facility] Monocytes/100 WBC (Bld) 8.5 % [facility] Neutrophils (Bld) [#/Vol] 4.06 10*3/uL [facility] Neutrophils/100 WBC (Bld) 72.3 % [facility] Nucleated RBC (Bld) [#/Vol] NINF [facility] Nucleated RBC/100 WBC (Bld) [Ratio] 0.0 % /100 WBC [facility] Platelet mean volume (Bld) [Entitic vol] 8.4 fL Low 9.0 - 12.7 fL [facility] Platelets (Bld) [#/Vol] 266 10*3/uL [facility] RBC (Bld) [#/Vol] 5.10 10*6/uL 4.20 - 6.0 0 m/uL [facility] WBC (Bld) [#/Vol] 5.62 10*3/uL [facility] Basophils (Bld) [#/Vol] 0.04 10*3/uL Normal <0.11 [facility] Comment on above: Order Comment: Speci men Type: BLOOD SPECIMENOrdering Facility: [facility] Address: [address] [place] [address] Performed By: #### 5 7021-8 ####[facility] [id number] [place] [address] [place] Basophils/100 WBC (Bld) 0.7 % Normal [facility] Comment on above: Order Comment: Speci men Type: BLOOD SPECIMENOrdering Facility: [facility] Address: [address] [place] [address] Performed By: #### 5 7021-8 ####[facility]IT[facility]IA [id number] [place] [address] [place] Differential cell count method Nom (Bld) Auto Normal [facility] Comment on above: Order Comment: Speci men Type: BLOOD SPECIMENOrdering Facility: [facility] Address: [address] [place] [address] Performed By: #### 5 7021-8 ####[facility] [id number] [place] [address] [place] Eosinophils (Bld) [#/Vol] 0.19 10*3/uL Normal <0.46 [facility] Comment on above: Order Comment: Speci men Type: BLOOD SPECIMENOrdering Facility: [facility] Address: [address] [place] [address] Performed By: #### 5 7021-8 ####[facility] [id number] [place] [address] [place] Eosinophils/100 WBC (Bld) 3.4 % Normal [facility] Comment on above: Order Comment: Speci men Type: BLOOD SPECIMENOrdering Facility: [facility] Address: [address] [place] [address] Performed By: #### 5 7021-8 ####[facility] [id number] [place] [address] [place] Erythrocyte distribution width (RBC) [Ratio] 13.5 % Normal 11.5-15.0 [facility] Comment on above: Order Comment: Speci men Type: BLOOD SPECIMENOrdering Facility: [facility] Address: [address] [place] [address] Performed By: #### 5 7021-8 ####[facility] HOSPITALNCA [id number] [place] [address] [place] Hematocrit (Bld) [Volume fraction] 43.8 % Normal 39.0-51.0 [facility] Comment on above: Order Comment: Speci men Type: BLOOD SPECIMENOrdering Facility: [facility] Address: [address] [place] [address] Performed By: #### 5 7021-8 ####[facility] HOSPITALNCLI [id number] [place] [address] [place] Hemoglobin (Bld) [Mass/Vol] 14.5 g/dL Normal 13.0-17.0 [facility] Comment on above: Order Comment: Speci men Type: BLOOD SPECIMENOrdering Facility: [facility] Address: [address] [place] [address] Performed By: #### 5 7021-8 ####[facility] [id number] [place] [address] [place] Immature granulocytes (Bld) [#/Vol] 10*3/uL Normal <0.10 [facility] Comment on above: Order Comment: Speci men Type: BLOOD SPECIMENOrdering Facility: [facility] Address: [address] [place] [address] Performed By: #### 5 7021-8 ####[facility] HOSPITALMOMOA [id number] [place] [address] [place] Immature granulocytes/100 WBC (Bld) 0.2 % Normal [facility] Comment on above: Order Comment: Speci men Type: BLOOD SPECIMENOrdering Facility: [facility] Address: [address] [place] [address] Performed By: #### 5 7021-8 ####[facility] [id number] [place] [address] [place] Lymphocytes (Bld) [#/Vol] 0.84 10*3/uL Low 1.00-4.00 [facility] Comment on above: Order Comment: Speci men Type: BLOOD SPECIMENOrdering Facility: [facility] Address: [address] [place] [address] Performed By: #### 5 7021-8 ####[facility]PITALNCLIA [id number] [place] [address] [place] Lymphocytes/100 WBC (Bld) 14.9 % Normal [facility] Comment on above: Order Comment: Speci men Type: BLOOD SPECIMENOrdering Facility: [facility] Address: [address] [place] [address] Performed By: #### 5 7021-8 ####[facility]ALL[facility] [id number] [place] [address] [place] MCH (RBC) [Entitic mass] 28.4 pg Normal 26.0-34.0 [facility] Comment on above: Order Comment: Speci men Type: BLOOD SPECIMENOrdering Facility: [facility] Address: [address] [place] [address] Performed By: #### 5 7021-8 ####[facility] [id number] [place] [address] [place] MCHC (RBC) [Mass/Vol] 33.1 g/dL Normal 30.5-36.0 [facility] Comment on above: Order Comment: Speci men Type: BLOOD SPECIMENOrdering Facility: [facility] Address: [address] [place] [address] Performed By: #### 5 7021-8 ####[facility] [id number] [place] [address] [place] MCV (RBC) [Entitic vol] 85.9 fL Normal 80.0-100.0 [facility] Comment on above: Order Comment: Speci men Type: BLOOD SPECIMENOrdering Facility: [facility] Address: [address] [place] [address] Performed By: #### 5 7021-8 ####[facility] [id number] [place] [address] [place] Monocytes (Bld) [#/Vol] 0.48 10*3/uL Normal <0.87 [facility] Comment on above: Order Comment: Speci men Type: BLOOD SPECIMENOrdering Facility: [facility] Address: [address] [place] [address] Performed By: #### 5 7021-8 ####[facility] [id number] [place] [address] [place] Monocytes/100 WBC (Bld) 8.5 % Normal [facility] Comment on above: Order Comment: Speci men Type: BLOOD SPECIMENOrdering Facility: [facility] Address: [address] [place] [address] Performed By: #### 5 7021-8 ####[facility]ALL[facility] [id number] [place] [address] [place] Neutrophils (Bld) [#/Vol] 4.06 10*3/uL Normal 1.45-7.50 [facility] Comment on above: Order Comment: Speci men Type: BLOOD SPECIMENOrdering Facility: [facility] Address: [address] [place] [address] Performed By: #### 5 7021-8 ####[facility] [id number] [place] [address] [place] Neutrophils/100 WBC (Bld) 72.3 % Normal [facility] Comment on above: Order Comment: Speci men Type: BLOOD SPECIMENOrdering Facility: [facility] Address: [address] [place] [address] Performed By: #### 5 7021-8 ####[facility] [id number] [place] [address] [place] Nucleated RBC (Bld) [#/Vol] 10*3/uL Normal <0.01 [facility] Comment on above: Order Comment: Speci men Type: BLOOD SPECIMENOrdering Facility: [facility] Address: [address] [place] [address] Performed By: #### 5 7021-8 ####[facility] [id number] [place] [address] [place] Nucleated RBC/100 WBC (Bld) [Ratio] 0.0 /100 WBC Normal [facility] Comment on above: Order Comment: Speci men Type: BLOOD SPECIMENOrdering Facility: [facility] Address: [address] [place] [address] Performed By: #### 5 7021-8 ####[facility] [id number] [place] [address] [place] Platelet mean volume (Bld) [Entitic vol] 8.4 fL Low 9.0-12.7 [facility] Comment on above: Order Comment: Speci men Type: BLOOD SPECIMENOrdering Facility: [facility] Address: [address] [place] [address] Performed By: #### 5 7021-8 ####[facility] [id number] [place] [address] [place] Platelets (Bld) [#/Vol] 266 10*3/uL Normal 150-400 [facility] Comment on above: Order Comment: Speci men Type: BLOOD SPECIMENOrdering Facility: [facility] Address: [address] [place] [address] Performed By: #### 5 7021-8 ####[facility] HOSPITALNCJUAN PABLOA [id number] [place] [address] [place] RBC (Bld) [#/Vol] 5.10 10*6/uL Normal 4.20-6.00 [facility] Comment on above: Order Comment: Speci men Type: BLOOD SPECIMENOrdering Facility: [facility] Address: [address] [place] [address] Performed By: #### 5 7021-8 ####[facility]ITALNCLIA [id number] [place] [address] [place] WBC (Bld) [#/Vol] 5.62 10*3/uL Normal 3.70-11.00 [facility] Comment on above: Order Comment: Speci men Type: BLOOD SPECIMENOrdering Facility: [facility] Address: [address] [place], [place] [address] Performed By: #### 5 7021-8 ####[facility] [id number] [place] [id number] [place] Comprehensive metabolic 2000 panelOrdered By: Eileen Chan on 09-05-2024 Albumin [Mass/Vol] 4.2 g/dL 3.9 - 4.9 g/dL [facility] ALP [Catalytic activity/Vol] 75 U/L 38 - 113 U/L [facility] ALT [Catalytic activity/Vol] 16 U/L 10 - 54 U/L [facility] Anion gap [Moles/Vol] 10 mmol/L 8 - 15 mmol/L [facility] AST [Catalytic activity/Vol] 17 U/L 14 - 40 U/L [facility] Bilirubin [Mass/Vol] 0.4 mg/dL 0.2 - 1.3 mg/dL [facility] Calcium [Mass/Vol] 9.3 mg/dL 8.5 - 10.2 mg/dL [facility] Chloride [Moles/Vol] 103 mmol/L 98 - 107 mmol/L [facility] CO2 [Moles/Vol] 27 mmol/L 22 - 30 mmol/L [facility] Creatinine [Mass/Vol] 0.77 mg/dL 0.73 - 1.22 mg/dL [facility] GFR/1.73 sq M.predicted among non-blacks MDRD (S/P/Bld) [Vol rate/Area] 94 mL/min/{1.73_m2} - PINF [facility] Comment on above: Estimated Glomerular Filtration Rate (eGFR) is calculated using the 2020 CKD-EPI creatinine equation. This equation utilizes serum creatinine, sex, and age as parameters. The creatinine assay has traceable calibration to isotope dilution-mass spectrometry. Refer to KDIGO guidelines for clinical interpretation. In patients with unstable renal function, e.g. those with acute kidney injury, the eGFR may not accurately reflect actual GFR. Glucose [Mass/Vol] 262 mg/dL High 74 - 99 mg/dL [facility] Comment on above: The [place] Di[employer] Association (ADA) provides guidance for cutoff values for fasting glucose and random glucose. The ADA defines fasting as no caloric intake for at least 8 hours. Fasting plasma glucose results between 100 to 125 mg/dL indicate increased risk for diabetes (prediabetes). Fasting plasma glucose results greater than or equal to 126 mg/dL meet the criteria for diagnosis of diabetes. In the absence of unequivocal hyperglycemia, results should be confirmed by repeat testing. In a patient with classic symptoms of hyperglycemia or hyperglycemic crisis, random plasma glucose results greater than or equal to 200 mg/dL meet the criteria for diagnosis of diabetes. Reference: Standards of Medical Care in Diabetes 2016, [place] [employer]. Diabetes Care. 2016.39(Suppl 1). Interpretation and review of laboratory results Abnormal [facility] Potassium [Moles/Vol] 4.4 mmol/L 3.7 - 5.1 mmol/L [facility] Protein [Mass/Vol] 7.4 g/dL 6.3 - 8.0 g/dL [facility] Sodium [Moles/Vol] 140 mmol/L 136 - 144 mmol/L [facility] Urea nitrogen [Mass/Vol] 17 mg/dL 9 - 24 mg/dL [facility] Comprehensive metabolic 2000 panelon 09-05-2024 Albumin [Mass/Vol] 4.2 g/dL Normal 3.9-4.9 [facility] Comment on above: Order Comment: Speci men Type: BLOOD SPECIMENOrdering Facility: [facility] Address: [address] [place] [address] Performed By: #### 2 4323-8 ####[facility] [id number] [place] [address] [place] ALP [Catalytic activity/Vol] 75 U/L Normal 38-113 [facility] Comment on above: Order Comment: Speci men Type: BLOOD SPECIMENOrdering Facility: [facility] Address: [address] [place] [address] Performed By: #### 2 4323-8 ####[facility] [id number] [place] [address] [place] ALT [Catalytic activity/Vol] 16 U/L Normal 10-54 [facility] Comment on above: Order Comment: Speci men Type: BLOOD SPECIMENOrdering Facility: [facility] Address: [address] [place] [address] Performed By: #### 2 4323-8 ####[facility]OWNCL[facility] [id number] [place] [address] [place] Anion gap [Moles/Vol] 10 mmol/L Normal 8-15 [facility] Comment on above: Order Comment: Speci men Type: BLOOD SPECIMENOrdering Facility: [facility] Address: [address] [place] [address] Performed By: #### 2 4323-8 ####[facility] [id number] [place] [address] [place] AST [Catalytic activity/Vol] 17 U/L Normal 14-40 [facility] Comment on above: Order Comment: Speci men Type: BLOOD SPECIMENOrdering Facility: [facility] Address: [address] [place] [address] Performed By: #### 2 4323-8 ####[facility]OWNCL[facility] [id number] [place] [address] [place] Bilirubin [Mass/Vol] 0.4 mg/dL Normal 0.2-1.3 [facility] Comment on above: Order Comment: Speci men Type: BLOOD SPECIMENOrdering Facility: [facility] Address: [address] [place] [address] Performed By: #### 2 4323-8 ####[facility] [id number] [place] [address] [place] Calcium [Mass/Vol] 9.3 mg/dL Normal 8.5-10.2 [facility] Comment on above: Order Comment: Speci men Type: BLOOD SPECIMENOrdering Facility: [facility] Address: [address] [place] [address] Performed By: #### 2 4323-8 ####[facility]ILLWNCL[facility] [id number] [place] [address] [place] Chloride [Moles/Vol] 103 mmol/L Normal 98-107 [facility] Comment on above: Order Comment: Speci men Type: BLOOD SPECIMENOrdering Facility: [facility] Address: [address] [place] [address] Performed By: #### 2 4323-8 ####[facility]OSPITALL[facility] [id number] [place] [address] [place] CO2 [Moles/Vol] 27 mmol/L Normal 22-30 [facility] Comment on above: Order Comment: Speci men Type: BLOOD SPECIMENOrdering Facility: [facility] Address: [address] [place] [address] Performed By: #### 2 4323-8 ####[facility] [id number] [place] [address] [place] Creatinine [Mass/Vol] 0.77 mg/dL Normal 0.73-1.22 [facility] Comment on above: Order Comment: Speci men Type: BLOOD SPECIMENOrdering Facility: [facility] Address: [address] [place] [address] Performed By: #### 2 4323-8 ####[facility] [id number] [address] [place] Creatinine and Glomerular filtration rate.predicted panel (S/P/Bld) 94 mL/min/1.73m??? Normal >=60 [facility] Comment on above: Order Comment: Speci men Type: BLOOD SPECIMENOrdering Facility: [facility] Address: [address] [place] [address] Result Comment: Nelli mated Glomerular Filtration Rate (eGFR) is calculated using the 2020 CKD-EPI creatinine equation. This equation utilizes serum creatinine, sex, and age as parameters. The creatinine assay has traceable calibration to isotope dilution-mass spectrometry. Refer to KDIGO guidelines for clinical interpretation. In patients with unstable renal function, e.g. those with acute kidney injury, the eGFR may not accurately reflect actual GFR. Performed By: #### 2 4323-8 ####[facility] [id number] [place] [address] [place] Glucose [Mass/Vol] 262 mg/dL High 74-99 [facility] Comment on above: Order Comment: Speci men Type: BLOOD SPECIMENOrdering Facility: [facility] Address: [address] [place] [address] Result Comment: The [place] Diabetes Association (ADA) provides guidance for cutoff values for fasting glucose and random glucose. The ADA defines fasting as no caloric intake for at least 8 hours. Fasting plasma glucose results between 100 to 125 mg/dL indicate increased risk for diabetes (prediabetes). Fasting plasma glucose results greater than or equal to 126 mg/dL meet the criteria for diagnosis of diabetes. In the absence of unequivocal hyperglycemia, results should be confirmed by repeat testing. In a patient with classic symptoms of hyperglycemia or hyperglycemic crisis, random plasma glucose results greater than or equal to 200 mg/dL meet the criteria for diagnosis of diabetes. Reference: Standards of Medical Care in Diabetes 2016, [place] [employer]. Diabetes Care. 2016.39(Suppl 1). Performed By: #### 2 4323-8 ####[facility]CL[facility] [id number] [place] [address] [place] Potassium [Moles/Vol] 4.4 mmol/L Normal 3.7-5.1 [facility] Comment on above: Order Comment: Speci men Type: BLOOD SPECIMENOrdering Facility: [facility] Address: [address] [place], [place] [address] Performed By: #### 2 4323-8 ####[facility]CL[facility] [id number] [place] [address] [place] Protein [Mass/Vol] 7.4 g/dL Normal 6.3-8.0 [facility] Comment on above: Order Comment: Joshi men Type: BLOOD SPECIMENOrdering Facility: [facility] Address: [address] [place], [place] [address] Performed By: #### 2 4323-8 ####[facility]EEWNCL[facility] [id number] [place] [address] [place] Sodium [Moles/Vol] 140 mmol/L Normal 136-144 [facility] Comment on above: Order Comment: Speci men Type: BLOOD SPECIMENOrdering Facility: [facility] Address: [address] [place] [address] Performed By: #### 2 4323-8 ####[facility]ITAL[facility]CL[facility] [id number] [place] [address] [place] Urea nitrogen [Mass/Vol] 17 mg/dL Normal 9-24 [facility] Comment on above: Order Comment: Speci men Type: BLOOD SPECIMENOrdering Facility: [facility] Address: [address] [place] [address] Performed By: #### 2 4323-8 ####[facility]ITALNCLIA [id number] [place] [address] [place] AQZ33cg 09-05-2024 ECG01 Ventricular Rate : 8 5 BPM Atrial Rate : 85 BPM P-R Interval : 138 ms QRS Duration : 92 ms Q-T Interval : 378 ms QTC Calculation(Bazett) : 449 ms Calculated P [place] : 14 degrees Calculated R [place] : -41 degrees Calculated T [place] : 35 degrees NORMAL SINUS RHYTHM LEFT AXIS DEVIATION INCOMPLETE RIGHT BUNDLE BRANCH BLOCK ABNORMAL ECG Confirmed by MD APARICIO QARAB ([id number]) on 09/05/2024 1:59:13 PM NAME : HUBER PETERSON PID : [id number] : 1950 Gender : Male Race : ORD : Procedure Date : Sep 05 2024 10:47:27 Edit Date : Sep 05 2024 13:59:17 Diagnosis: NORMAL SINUS RHYTHM LEFT AXIS DEVIATION INCOMPLETE RIGHT BUNDLE BRANCH BLOCK ABNORMAL ECG Confirmed by MD APARICIO QARAB ([id number]) on 09/05/2024 1:59:13 PM Test Reason : Location : [address] [place] [address] Overread By : MD APARICIO QARAB Edited By : MD APARICIO QARAB Referred By : FERNANDEZ MARTE Acquired by : Yolanda Bolton [facility] HISTORY PHYSICALon HISTORY PHYSICAL HNO ID: [id number] Author: TATIANA CARRERO APRN.HOSPICE AIDE Service: ? Author Type: Nurse Practitioner Type: H&P Filed: 09/09/2024 14:50 Note Text: [facility] HISTORY AND PHYSICAL EXAMINATION SERVICE DATE: 09/05/2024 SERVICE TIME: 2:50 PM PRIMARY CARE PHYSICIAN: Umesh Palomino DO Assessment Patient has the following medical conditions which may affect emile-operative course: AF (paroxysmal atrial fibrillation) (HCC) Assessment: s/p ablation 2015, daily ASA, following Dr. Khanh Starr, has pending f/u appt 10/2024, last echo 2014 on file EF 60%, normal systolic diastolic fx and valvular function, scanned into epic Essential hypertension Assessment: controlled on rx Last 14 BP Last 14 Encounter BP Readings: Date: BP: 09/05/2024 152/76 07/22/2024 200/81[MD aware[ 03/13/2023 150/84 10/08/2021 170/90 10/16/2020 164/84 Type 2 diabetes mellitus without complication (HCC) Assessment: IDDM and oral agent Hemoglobin A1C (%) Date Value 09/05/2024 7.1 Sleep apnea Assessment: non-compliant with CPAP, s/p uvelectomy BMI 30.0-30.9,adult Assessment: Body mass index is 30.78 kg/m?. Incomplete RBBB Assessment: per EKG, asymptomatic BPH (benign prostatic hyperplasia) Assessment: no tx, reports hesitancy in the AM Recent URI Assessment: abnormal lung sounds in bilateral bases right>left, CXR pending. Pt states cough several weeks, states feels like he is slowly improving, wet/deep cough during exam, pulse ox 95% on RA Garcia Activity Status Index: METS: Climb a flight of stairs or walk up a hill (5.50 METs) DASI Score: 5.5 Patient denies any chest pain or undue shortness of breath with the above physical activity. Clinical Frailty Scale: 3. Well, with treated comorbid disease STOP-Bang Score: Snores loudly Has been observed to stop breathing or choking/gasping during sleep Has or is being treated for high blood pressure Patient over 50 years old Has a large neck Male patient Denies feeling tired, fatigued, or sleepy during the daytime BMI less than or equal to 35 kg/m2 STOP-Bang Score: 6 [id number] Score: Age: 65-74 Sex: male CHF history: No Hypertension history: Yes Stroke/TIA/thromboembolism history: No Vascular disease history: No Diabetes history: Yes [id number] Score: 3 ARISCAT Score: Age: 51-80 Preoperative SpO2: 91-95% Respiratory infection in the last month: No Preoperative anemia: No Surgical incision: peripheral Duration of surgery: <2 hrs Emergency procedure: No ARISCAT Score: 11 ANESTHESIA FINDINGS: Intubation History: No history of difficult intubation Significant Anesthesia Considerations: none Airway History: No history of difficult airway I - PHYSICAL EVALUATION AIRWAY Patient intubated: No. Tracheostomy tube not present Mallampati: II. TM distance: >3 FB. Neck ROM: full ROM without neurological symptoms. Mouth opening: adequate. Short neck: no. Thick neck: yes Jackson present: yes Lip Bite Test: I Microretrognathia/Micronagt hia/Recessed Chin: No DENTAL Dental findings: teeth intact. II - ANESTHESIA PLAN Anesthetic Plan: other Beta Gillian Monitoring Plan Post Procedure Analgesic Plan Prepared for Surgery: optimally prepared for surgery. Labs, EKG and CXR-reviewed, okay to proceed-JL CONSULTS: Patient does not require consults for optimization at this time Planned Anesthetic: other anesthesia choice The Following Tests/Procedures Have Been Initiated: Orders Placed This Encounter XR CHEST 2V FRONTAL/LAT Standing Status: Future Number of Occurrences: 1 Expected Date: 09/05/2024 Expiration Date: 10/05/2025 >CBC + AUTO DIFF Standing Status: Future Number of Occurrences: 1 Expected Date: 09/05/2024 Expiration Date: 12/05/2024 >CMP Standing Status: Future Number of Occurrences: 1 Expected Date: 09/05/2024 Expiration Date: 12/05/2024 PSA/Prostate Specific Antigen Screening Standing Status: Future Number of Occurrences: 1 Expected Date: 09/05/2024 Expiration Date: 12/05/2024 HGB A1C Standing Status: Future Number of Occurrences: 1 Expected Date: 09/05/2024 Expiration Date: 12/05/2024 ECG COMPLETE Standing Status: Future Expiration Date: 09/05/2025 REASON FOR VISIT: Huber Peterson is a 74 year old male who is scheduled for Procedure(s): INSERTION TRANSPERINEAL NEEDLES OR CATHETERS PROSTATE FOR INTERSTITIAL RADIOELEMENT APPLICATION (N/A) ULTRASOUND TRANSRECTAL PROSTATE (N/A) CYSTOSCOPY FLEXIBLE (N/A) APPLICATION INTERSTITIAL RADIATION SOURCE COMPLEX (N/A) ULTRASONIC GUIDANCE FOR INTERSTITIAL RADIO ELEMENT APPLICATION (N/A) at the request of Dr. Fernandez Marte for consultation. My final recommendation will be communicated back to the requesting physician by way of shared medical record or letter. Subjective The patient has the following: COVID-19 Immunization Status Current Care Gaps Covid-19 V (more content not included)... Normal [facility] HbA1c (Bld)on 09-05-2024 Average glucose Estimated from glycated hemoglobin (Bld) [Mass/Vol] 157 mg/dL Normal [facility] Comment on above: Order Comment: Speci men Type: BLOOD SPECIMENOrdering Facility: [facility] Address: [address] [place] [address] Result Comment: eAG: (Estimated average glucose) is a calculated value from HgbA1c and is food products sales representative of the average blood glucose level in the last 2-3 month period. Performed By: #### 5 5454-3 ####[facility] LABCLIA [id number] [place] [address] [place] HbA1c (Bld) [Mass fraction] 7.1 % High 4.3-5.6 [facility] Comment on above: Order Comment: Speci men Type: BLOOD SPECIMENOrdering Facility: [facility] Address: [address] [place] [address] Result Comment: Amer ican Diabetes Association guidelines indicate that patients with HgbA1c in the range 5.7-6.4% are at increased risk for development of diabetes, and intervention by lifestyle modification may be beneficial. HgbA1c greater or equal to 6.5% is considered diagnostic of diabetes. Performed By: #### 5 5454-3 ####[facility] LABCLIA [id number] [place] [id number] [place] PSA/PROSTATE SPECIFIC ANTIGE N SCREENINGon 09-05-2024 Prostate specific Ag [Mass/Vol] 22.31 ng/mL High <2.60 [facility] Comment on above: Order Comment: Speci men Type: BLOOD SPECIMENOrdering Facility: [facility] Address: [facility] [place] [address] Result Comment: Tota l PSA test methodology used is the Electrochemiluminescence Immunoassay by [employer]. Total PSA values by differing methodologies cannot be interchanged. For an individual patient, the significance of a PSA level should be interpreted in a broad clinical context, including age, race, family history, digital rectal exam, prostate size, results of prior testing (prostate biopsy, free PSA, PCA3), and use of 5-alpha reductase inhibitors. Considering the high incidence of asymptomatic cancer in the general population that may not pose an ultimate risk to a patient, the decision to recommend urological evaluation or prostate biopsy should be individualized after consideration of all these factors. REFERENCE: Laurel Linares M.D., M.P.H., Monster [place] M.D., Ph.D., Clay Gonsalez M.D., Thu Stern, M.P.H., Gwen Jauregui, Sc.D. Effect of Verification Bias on Screening for Prostate Cancer by Measurement of Prostatic Specific Antigen. N Engl J Med 2003,349:335-42. Performed By: #### P SAS1 ####[facility] LABCLIA [id number] [place] [id number] [place] XR CHEST 2V FRONTAL/LATon XR CHEST 2V FRONTAL/LAT * * *Final Report* * * DATE OF EXAM: Sep 05 2024 10:51AM [id number] - XR CHEST 2V FRONTAL/LAT / PROCEDURE REASON: Pre-operative examination * * * * Physician Interpretation * * * * EXAMINATION: CHEST RADIOGRAPH (2 VIEW FRONTAL and LATERAL) CLINICAL HISTORY: Pre-operative examination MQ: XC2_6 EXAM DATE/TIME: 09/05/2024 10:51 AM COMPARISON: Chest x-ray 09/13/2014 RESULT: Lines, tubes, and devices: None. Lungs and pleura: No consolidation. Again noted are bilateral calcified granulomas. No lung mass. No pleural effusion. No pneumothorax. Cardiomediastinal silhouette: Normal cardiomediastinal silhouette. Bones and soft tissues: Unremarkable. IMPRESSION: No acute radiographic abnormality. Pretzel Twister: [facility] Transcribe Date/Time: Sep 05 2024 11:02A Dictated by : JAMIE MOREJON MD This examination was interpreted and the report reviewed and electronically signed by: JAMIE MOREJON MD on Sep 05 2024 11:04AM EST [id number] Normal [facility] XR Chest PA and Lateralon IMPRESSION: No acute radiographic abnormality. Pretzel Twister: [facility] Transcribe Date/Time: Sep 05 2024 11:02A Dictated by : JAMIE MOREJON MD This examination was interpreted and the report reviewed and electronically signed by: JAMIE MOREJON MD on Sep 05 2024 11:04AM EST DIVISION OF RADIOLOGY * * *Final Report* * * DATE OF EXAM: Sep 05 2024 10:51AM [id number] - XR CHEST 2V FRONTAL/LAT / PROCEDURE REASON: Pre-operative examination * * * * Physician Interpretation * * * * EXAMINATION: CHEST RADIOGRAPH (2 VIEW FRONTAL & LATERAL) CLINICAL HISTORY: Pre-operative examination MQ: XC2_6 EXAM DATE/TIME: 09/05/2024 10:51 AM COMPARISON: Chest x-ray 09/13/2014 RESULT: Lines, tubes, and devices: None. Lungs and pleura: No consolidation. Again noted are bilateral calcified granulomas. No lung mass. No pleural effusion. No pneumothorax. Cardiomediastinal silhouette: Normal cardiomediastinal silhouette. Bones and soft tissues: Unremarkable. DIVISION OF RADIOLOGY Provider, [facility] [place] [facility] - 09/05/2024 * * *Final Report* * * DATE OF EXAM: Sep 05 2024 10:51AM [id number] - XR CHEST 2V FRONTAL/LAT / PROCEDURE REASON: Pre-operative examination * * * * Physician Interpretation * * * * EXAMINATION: CHEST RADIOGRAPH (2 VIEW FRONTAL & LATERAL) CLINICAL HISTORY: Pre-operative examination MQ: XC2_6 EXAM DATE/TIME: 09/05/2024 10:51 AM COMPARISON: Chest x-ray 09/13/2014 RESULT: Lines, tubes, and devices: None. Lungs and pleura: No consolidation. Again noted are bilateral calcified granulomas. No lung mass. No pleural effusion. No pneumothorax. Cardiomediastinal silhouette: Normal cardiomediastinal silhouette. Bones and soft tissues: Unremarkable. IMPRESSION IMPRESSION: No acute radiographic abnormality. Pretzel Twister: [facility] Transcribe Date/Time: Sep 05 2024 11:02A Dictated by : JAMIE MOREJON MD This examination was interpreted and the report reviewed and electronically signed by: JAMIE MOREJON MD on Sep 05 2024 11:04AM EST [facility] Radiology Study observation (narrative) [facility] XR Chest PA and LateralOrder ed By: [facility] Provider on 09-05-2024 [facility] CNOVon 07-22-2024 CNOV Office Visit (RADTMN ) HUBER PETERSON ([id number]) 1950 M Date Time Provider Department 07/22/24 11:00 AM FERNANDEZ MARTE RADQUANN During your visit today, we recorded the following information about you: Temperature Pulse Respiration Blood pressure 97.9 degrees 83/minute 20/minute 200/81 Weight Height 94.3 kg 1.753 m Fernandez Marte MD 07/22/2024 11:35 AM Signed PROSTATE CANCER INITIAL VISIT SERVICE DATE: July 22, 2024 PRIMARY CARE PROVIDER: Umesh Palomino DO REFERRING PROVIDER: Umesh Palomino [address] [address] Consult requested for an opinion regarding the evaluation and treatment of prostate cancer. My final impression and recommendations will be communicated back to the requesting physician by way of the shared medical record or letter via US mail. I spent 60 minutes in the visit, with more than 50% of the total ardc-kc-alln time of the visit in counseling / coordination of care. SUBJECTIVE HISTORY OF PRESENT ILLNESS: Mr. Peterson is a 74 year old and presents with spouse. Newly diagnosed CaP. NCCN CRITERIA VALUES Clinical Stage (AJCC 7th Edition) T2a, N0, M0 = stage IIIC [any T, N0, M0, any PSA, GG 5] (AJCC 8th ed.) Previous PSA Score(s) (PSA Should Be Within 3 Months of Biopsy) Outside Result: 13.27 ng/mL Result Date: April 30, 2024 Date of Biopsy June 04, 2024 Type of Biopsy TRUS Random Biopsy Quique/ISUP Group 4 + 5 = 9 (Grade Group 5) Total # of Biopsy Cores 6 Total # of Positive Biopsy Cores 3 Greatest % Cancer in Any Single Core 90% PSA Density Not Available 2016 NCCN Risk Group High Risk Group PERTINENT HISTORY: Urinary frequency (D/N): 6/0 Dysuria: No Incontinence: No Hematuria: No Baseline Urinary Function: 1- No pads AUA QUESTIONNAIRE (Symptoms Prior to Biopsy): Incomplete Emptyin (less than 1 time in 5) Frequency (within 2 hours of previous void): 0 (not at all) Intermittency: 0 (not at all) Urgency (difficulty postponing urination): 0 (not at all) Weak Stream: 1 (less than 1 time in 5) Strainin (less than 1 time in 5) Nocturia: 0 (none) - Total AUA Score: 3 BASELINE ERECTILE FUNCTION: 4- Diminished but unsatisfactory for intercourse PREVIOUS TREATMENTS: None TESTING TO DATE: PET Scan Results: Prostate-only uptake, no evidence of metastases. 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 Nonrheumatic atrial fibrillation (HCC) Personal history of other diseases of the circulatory system Sleep apnea Status post cryoablation 10/29/2015 successful isolation of all four pulmonary veins PAST SURGICAL HISTORY Procedure Laterality Date LEG SURGERY HX 10/2017 leg fx PAST SURGICAL HISTORY OF surgery for sleep apnea TONSILLECTOMY HX FAMILY HISTORY Problem Relation Age of Onset Cancer Mother Heart Attack Father 66 other (arrhythmias) Sister other (rheumatic fever) Brother KNOWN FAMILIAL HISTORY: Prostate Cancer in brother Social History Tobacco Use Smoking status: Never Smokeless tobacco: Never Substance Use Topics Alcohol use: Never Drug use: Never ALLERGIES Allergen Reactions Lisinopril Unknown Sjdqwtp-Enf-Yvb Red* Unknown MEDICATIONS: telmisartan (MICARDIS) 40 mg tablet Take 40 mg by mouth once daily. insulin NPH human isophane (NOVOLIN N FLEXPEN SUBCUTANEOUS) Inject subcutaneously. omega-3 fatty acids (SUPER OMEGA-3 ORAL) Take by mouth twice daily. glipiZIDE (GLUCOTROL) 5 mg tablet Take 5 mg by mouth three times daily. aspirin, enteric coated (ASPIRIN, ENTERIC COATED) 81 mg EC tablet Take 81 mg by mouth once daily. metFORMIN (GLUCOPHAGE) 1,000 mg tablet Take 1,000 mg by mouth three times daily. OBJECTIVE REVIEW OF SYSTEMS: GENERAL: Negative for fevers, chills, or night sweats. HEENT: Negative for sudden vision or hearing changes. RESPIRATORY: Negative for cough or shortness of breath. CARDIAC: Negative for chest pain, palpitations, murmurs, or syncopal episodes. GASTROINTESTINAL: Negative for diarrhea, constipation, abdominal pain and poor appetite. GENITOURINARY: See HPI. MUSCULOSKELETAL: See HPI. NEUROLOGIC: Negative for dizziness, headache, weakness or numbness. HEMATOLOGIC: Negative for bleeding or easy bruising. SKIN: Negative for rashes or other skin changes. LYMPHATIC: No masses noted. EXTREMITIES: No swelling of extremities. ASSESSMENT PHYSICAL EXAM: There were no vitals taken for this visit. [facility]: 0- Full (more content not included)... Normal [facility] Tammy 07-09-2024 AYUSHN Telephone (NudgeN) HUBER PETERSON ([id number]) 1950 M Date Time Provider Department 07/09/24 FERNANDEZ MARTE During your visit today, we recorded the following information about you: Vielka Bloom 07/09/2024 1:43 PM Signed Name of Caller: Huber Relationship to Patient: Self Callback Reason for Call: Patient called and would like to see if he is a candidate for Brachy therapy, without a consult. PSA 13 Scheduled for prostatectomy in Aug 2024. He doesn't want that surgery if possible. Dr. Beny Mclaughlin [phone] Had Biopsy in office and PET scan at [facility]. Jeremías Ramírez RN 07/09/2024 4:06 PM Signed Email sent to scheduling. 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 - insulin NPH human isophane (NOVOLIN N FLEXPEN SUBCUTANEOUS) Inject subcutaneously. - omega-3 fatty acids (SUPER OMEGA-3 ORAL) Take by mouth twice daily. - glipiZIDE (GLUCOTROL) 5 mg tablet Take 5 mg by mouth three times daily. - aspirin, enteric coated (ASPIRIN, ENTERIC COATED) 81 mg EC tablet Take 81 mg by mouth once daily. - metFORMIN (GLUCOPHAGE) 1,000 mg tablet Take 1,000 mg by mouth three times daily. 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 [Z79.*09/30/2021 History of stress test [Z92.89] 11/12/2014 History of electrophysiologic study [Z98.890] 10/29/2015 History of echocardiogram [Z92.89] 10/21/2014 Essential hypertension [I10] 09/30/2021 Type 2 diabetes mellitus without complication (*09/30/2021 Aortic valve sclerosis [I35.8] 09/30/2021 AF (paroxysmal atrial fibrillation) (HCC) [I48.*09/30/2021 Non-smoker [Z78.9] 09/30/2021 Encounter Status:Closed by JEREMÍAS RAMÍREZ on 07/09/24 Normal [facility] PET/CT Tumor Base -Thigh Ini ton 07-02-2024 PET/CT Tumor Base -Thigh Init [facility] Imaging Services [address] [place], [place] [id number] PET/CT Tumor Base -Thigh Init MR#: [id number] Acct: [id number] Name: HUBER PETERSON Rep #: [id number] : 1950 M 73 From: John Arenas PCP: Faviola Gregg NP-C Status: REG CLI Study: PET/CT Tumor Base -Thigh Init Date of Exam: Exam# [id number] Ordering Dr: Sarabjit King MD [id number] EXAMINATION: F 18 Pylarify PSMA PET-CT ? INDICATIONS: 73-year-old male with a history of primary prostate carcinoma, presenting for restaging examination. ? COMPARISON EXAMINATION: None available ? INDEX LESION SIZE PROMISE SCORE SUV INTERPRETATION Prostate gland, midline base 10.6 mm 3 19.01 Fulfills quantitative criteria for viable neoplasm ? TECHNIQUE: Following the intravenous administration of 9.88 mCi of F 18 Pylarify PSMA via the left antecubital fossa, multiplanar image acquisitions of the head, neck, chest, abdomen and pelvis to the level of the midthigh, obtained at 73 minutes post tracer distribution reveal: ? The examination was interpreted using the EANM (Keo et al., Journal of Nuclear Medicine Molecular Imaging 44:1622, 2017) and PROMISE (Eipaulina et al., Journal of Nuclear Medicine 59:469, 2018) interpretive criteria. ? HEIGHT:?? 69 inches WEIGHT:?? 200 pounds ? PSMA expression score PROMISE criteria: High (3): SUV > parotid-salivary gland, intermediate (2): SUV > liver, low (1): > blood pool, < liver, (0): < blood pool. ? SUV reference values: Parotid glands 17.34. Normal liver parenchyma 6.9. Blood pool 1.9. ? FINDINGS: ? HEAD/NECK:? Symmetric radiopharmaceutical concentration is defined in the bilateral parotid and submandibular glands. Physiologic tracer uptake is noted in the nasal cavity. ? There is no evidence of abnormal increased tracer uptake within the context of the cranial vault. ? CHEST:? There is no quantitative scintigraphic evidence of abnormal increased radiopharmaceutical concentration within the context of the bilateral hemithorax pulmonary parenchyma, right and left hemithorax at the pleural interface, mediastinal structures, and left-right thoracic perihilum. ? CT of the chest demonstrates the following anatomic characteristics: Calcified parenchymal densities noted in the bilateral hemithorax reveal no evidence of increased tracer uptake. Bilateral axillary and mediastinal soft tissue densities are nontracer avid. Atherosclerotic calcification is defined in the thoracic aorta without evidence of dilatation, aneurysm formation. Coronary artery calcification is observed. ? ABDOMEN/PELVIS:? Facilitated uptake is noted in the lower pelvis caudal to the urinary bladder associated with the base of the prostate gland in the midline. The calculated standard uptake value is 19.01. The PROMISE Score is 3. The maximal axial diameter of the metabolic abnormality is 10.6 mm. Uniform, homogeneous radiopharmaceutical concentration is defined in the hepatic and splenic parenchyma, visualization of the bilateral renal units, urinary bladder, and visualized intestinal tract. ? CT of the abdomen and pelvis is remarkable for the following: Colonic diverticulosis is noted without evidence of diverticulitis. Atherosclerotic calcification is defined in the abdominal aorta without evidence of dilatation, aneurysm formation. Pelvic arterial calcification is observed. A fat containing left inguinal hernia is demonstrated. Right and left additional inguinal soft tissue densities are ametabolic. ? SKELETAL:? There is no evidence of quantitatively significant enhanced radiopharmaceutical metabolism on meticulous inspection of the appendicular and axial skeletal structures. ? Degenerative changes defined in the thoracic and lumbar spine demonstrate no evidence of increased glucose metabolism. There are no sclerotic, mixed sclerotic-lytic, or primarily lytic changes defined in the axial skeletal structures with evidence of increased FDG uptake. ? PET/PET/CT Tumor Base -Thigh Init IMPRESSION: 1. ABNORMAL EXAMINATION INDICATIVE OF MALIGNANT-VIABLE NEOPLASM. 2. Increased tracer uptake noted in the prostate gland fulfills quantitative criteria for viable neoplasm. 3. No other quantitatively significant hypermetabolic abnormalities are noted. Electronic Signature John Betancourt D.O. Accurate Quantification of SUVs and standardized PROMISE scores for this report are calculated using the exclusive [employer], (U.S. Patent No. [phone] B2 US [phone] [place] patent [phone] ). Standardization and correction of the FDG SUV metric exclusively available with [employer] intellectual property, allow for vendor non-specific objective quantitative sequential FDG PET-CT comparison and otherwise unobtainable optimizat (more content not included)... Normal [facility] PROSTATE BXon 06-04-2024 PROSTATE BX ------- Patient Age/Sex Location Account Attending Physician HUBER PETERSON/David [facility] [id number] Dr. Sarabjit King MD Specimen: [id number] Received: 06/05/24 Status: JAY Eastman Num: [id number] Spec Type: PROST BX Subm Dr: Dr. Sarabjit King MD HEADER OPERATION: Prostate biopsy PRE-OP DIAGNOSIS: Elevated PSA TISSUE SUBMITTED: A - Right apex, B - Right mid, C - Right base, D - Left apex, E - Left mid, F - Left base MICROSCOPIC DIAGNOSIS A. Right prostate, apex, core biopsy: Prostatic tissue, negative for malignancy. Focal mild chronic inflammation. B. Right prostate, mid, core biopsy: Focal high-grade prostatic intraepithelial neoplasia (HGPIN). C. Right prostate, base, core biopsy: Prostatic adenocarcinoma. Quique grade: 5+4=9 Number of cores involved: 1/1 Proportion of tissue involved: 80% Perineural invasion: Not identified. Greatest tumor length: 0.8cm Chronic inflammation. D. Left prostate, apex, core biopsy: Prostatic adenocarcinoma. Quique grade: 5+4=9 Number of cores involved: 1/1 Proportion of tissue involved: 70 % Perineural invasion: Suspected Greatest tumor length: 0.7 cm E. Left prostate, mid, core biopsy: Prostatic adenocarcinoma. Quique grade: 4+3=7 Number of cores involved: 1/1 Proportion of tissue involved: 90% Perineural invasion: Not identified. Greatest tumor length: 1.0cm Chronic inflammation. See comment. F. Left prostate, base, core biopsy: Prostatic adenocarcinoma. Quique grade: 4+3=7 Number of cores involved: 1/1 Proportion of tissue involved: 90% Perineural invasion: Not identified. Greatest tumor length: 1.0 cm See comment. SJ. 06/06/2024 Patient Age/Sex Location Account Attending Physician [id number]. Sarabjit King MD COMMENT E F. Focal tertiary pattern, Sigel grade 5 is also noted. MICROSCOPIC DESCRIPTION Slides are reviewed. GROSS DESCRIPTION A - Received is one container designated prostate, right apex. The specimen consists of one elongated fragment of light riley-white soft tissue measuring 0.7 cm in length and 0.1 cm in diameter. The specimen is totally submitted in one cassette. B - Received is one container designated prostate, right mid. The specimen consists of one elongated fragments of light riley-white soft tissue measuring 0.7 cm in length and 0.1 cm in diameter. The specimen is totally submitted in one cassette. C - Received is one container designated prostate, right base. The specimen consists of one elongated fragments of light riley-white soft tissue measuring 1.0 cm in length and 0.1 cm in diameter. The specimen is totally submitted in one cassette. D - Received is one container designated prostate, left apex. The specimen consists of one elongated fragments of light riley-white soft tissue measuring 1.2 cm in length and 0.1 cm in diameter. The specimen is totally submitted in one cassette. E - Received is one container designated prostate, left mid. The specimen consists of one elongated fragments of light riley-white soft tissue measuring 1.2 cm in length and 0.1 cm in diameter. The specimen is totally submitted in one cassette. F - Received is one container designated prostate, left base. The specimen consists of one elongated fragments of light riley-white soft tissue measuring 1.3 cm in length and 0.1 cm in diameter. The specimen is totally submitted in one cassette. / 06/05/2024 TC:0 [facility]: [id number] x6 Patient Age/Sex Location Account Attending Physician HUBER PETERSON 73/M [facility] [id number] Dr. Sarabjit King MD Signed (signature on file) Dr. Delta Montague MD 06/06/24 1321 Normal [facility] Comment on above: Performed By: #### P PROSB #### [facility] [address] [place], [address] OPERATIVE PROCEDURESon 05-21 OPERATIVE PROCEDURES [facility] OPERATIVE REPORT NAME ACCOUNT SEX AGE ADMIT DISCHARGE PT MED. RECORD# NUMBER DATE DATE TYPE HUBER PETERSON [id number] M 72 05/19/23 2 [id number] ROOM: [facility] DATE OF : 1950 DICTATING PHYSICIAN: Elodia Desai DATE OF SURGERY: May 19, 2023 SURGEON: Elodia Desai MD HEALTH CLAIMS EXAMINER: ANESTHESIOLOGIST: Cristiano Harding MD ANESTHETIC: PREOPERATIVE DIAGNOSIS: POSTOPERATIVE DIAGNOSIS: Screening colonoscopy, diverticulosis and small hemorrhoids. OPERATION PERFORMED: Screening colonoscopy. COMPLICATIONS: ESTIMATED BLOOD LOSS: None. SPECIMEN: None. DISPOSITION: Stable, to recovery. INDICATIONS: Huber Peterson is a 72-year-old gentleman who presented for screening endoscopy. After informed consent, he was examined as follows. DESCRIPTION OF OPERATION: The patient was placed on a padded gurney in the left lateral decubitus position with adequate padding at pressure points. Time-out verification was done appropriately. He was given sedation per Anesthesia with monitoring throughout. Digital examination showed external hemorrhoidal tags, normal tone, small internal tags, and no discrete mass. I did not feel prostatic nodules. The Olympus CF-[id number] flexible endoscope was introduced through the anal verge and carefully advanced, protecting the surrounding mucosa. The scope was advanced through the rectal vault, into the sigmoid colon, descending colon, beyond the splenic flexure, transverse colon, hepatic flexure, and ascending colon toward the ileocecal Page 1 of 2 HUBER PETERSON Operative Report HUBER PETERSON : 1950 junction. The landmarks were noted and documented. The prep was adequate. With copious irrigation and suctioning the view improved. The scope was withdrawn. The ascending, transverse, descending and sigmoid colon were carefully viewed. The patient had some scattered diverticula but no mass, no polypoid structure, no stricture, and no angiodysplasia. In the rectal vault, the scope was retroflexed, rotated, straightened out, and withdrawn with decompression. There were some internal and external hemorrhoids, but there was no tear, no fissure, no fungating mass, and no angiodysplasia. The patient tolerated the procedure well and was awakened and sent to the recovery room in good condition. 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 He can have repeat endoscopy in 10 years unless he has other risk factors, in which case he would need to return sooner. Dictated By: Elodia Desai MD 05/19/23 12:10 JOB #: [id number] Transcribed By: lynne 05/19/23 12:20 Electronically signed by: E-Sign Dr. Elodia Desai MD 05/21/23 13:04 Page 2 of 2 HUBER PETERSON Operative Report Normal [facility] .GFRon 11-17-2017 eGFR (non-black) mL/min/{1.73_m2} Normal [facility] ([place]) Comment on above: Result Comment: GFR Population mean for , Non- Americans Ages 20-29 = 116 mL/min/1.73 sq.m. Ages 30-39 = 107 mL/min/1.73 sq.m. Ages 40-49 = 99 mL/min/1.73 sq.m. Ages 50-59 = 93 mL/min/1.73 sq.m. Ages 60-69 = 85 mL/min/1.73 sq.m. Ages 70+ = 75 mL/min/1.73 sq.m.Chronic Kidney Disease: Less than 60 mL/min/1.73 square metersEnd Stage Renal Disease: Less than 15 mL/min/1.73 square meters Performed By: #### B MP, GFR ####[address] [place], [place] [address] eGFR (non-black) 114 ml/min/1.73sqm Normal [facility] ([place]) Comment on above: Result Comment: GFR Population mean for , Non- Americans Ages 20-29 = 116 mL/min/1.73 sq.m. Ages 30-39 = 107 mL/min/1.73 sq.m. Ages 40-49 = 99 mL/min/1.73 sq.m. Ages 50-59 = 93 mL/min/1.73 sq.m. Ages 60-69 = 85 mL/min/1.73 sq.m. Ages 70+ = 75 mL/min/1.73 sq.m.Chronic Kidney Disease: Less than 60 mL/min/1.73 square metersEnd Stage Renal Disease: Less than 15 mL/min/1.73 square meters Performed By: #### B MP, GFR ####[address] [place], [place] [address] BMPon 11-17-2017 BUN/Creatinine Ratio 18 ratio Normal 7-27 [facility] ([place]) Comment on above: Performed By: #### B MP, GFR ####[address] [place], [place] [address] Calcium 9.5 mg/dL Normal 8.4-10.2 [facility] ([place]) Comment on above: Performed By: #### B MP, GFR ####[address] [place], [place] [address] CO2 26 mmol/L Normal 23-31 [facility] ([place]) Comment on above: Performed By: #### B MP, GFR ####[address] [place], [place] [address] Creatinine 0.8 mg/dL Normal 0.6-1.2 [facility] ([place]) Comment on above: Performed By: #### B MP, GFR ####[address] [place], [place] [address] Electrolyte Balance 12.0 mEq/L Normal [facility] ([place]) Comment on above: Performed By: #### B MP, GFR ####[address] [place], [place] [address] Glucose mass conc 295 mg/dL High 80-115 [facility] ([place]) Comment on above: Performed By: #### B MP, GFR ####[address] [place], [place] [address] Urea nitrogen 14.7 mg/dL Normal 7.0-18.0 [facility] [place] Comment on above: Performed By: #### B MP, GFR ####[address] [place], [place] [address] Chloride 99 mmol/L Normal 98-107 [facility] ([place]) Comment on above: Performed By: #### B MP, GFR ####[address] [place], [place] [address] Potassium molar conc 4.5 mmol/L Normal 3.5-5.1 [facility] ([place]) Comment on above: Performed By: #### B MP, GFR ####[address] [place], [place] [address] Sodium 137 mmol/L Normal 136-146 [facility] ([place]) Comment on above: Performed By: #### B MP, GFR ####[address] [place], [place] [address] Vital Signs Date Time Vital Sign Value Performing Clinician Facility 11-27-2024 09:05-0400 Diastolic blood pressure 82 mm[Hg] Syl Aj APRN.CNP Work Phone: [facility] 11-27-2024 09:05-0400 Systolic blood pressure 130 mm[Hg] Syl Aj APRN.CNP Work Phone: [facility] 11-27-2024 09:01-0400 Body height 175.3 cm Syl Aj APRN.CNP Work Phone: [facility] 11-27-2024 09:01-0400 Body mass index (BMI) [Ratio] 30.34 kg/m2 Syl Aj APRN.HOSPICE AIDE Work Phone: [facility] 11-27-2024 09:01-0400 Body weight 93.2 kg Syl Aj APRN.HOSPICE AIDE Work Phone: [facility] 11-27-2024 09:01-0400 Heart rate 78 /min Syl Aj APRN.CNP Work Phone: [facility] 11-27-2024 09:01-0400 SaO2% (BldA) [Mass fraction] 98 % Syl Aj APRN.HOSPICE AIDE Work Phone: [facility] 10-14-2024 14:05-0400 Body mass index (BMI) [Ratio] 29.98 kg/m2 Fernandez Marte MD Work Phone: [facility] 10-14-2024 14:05-0400 Body weight 92.08 kg Fernandez Marte MD Work Phone: [facility] 10-14-2024 14:05-0400 Diastolic blood pressure 72 mm[Hg] Fernandez Marte MD Work Phone: [facility] Comment on above: notified 10-14-2024 14:05-0400 Heart rate 73 /min Fernandez Marte MD Work Phone: [facility] 10-14-2024 14:05-0400 Respiratory rate 18 /min Fernandez Marte MD Work Phone: [facility] 10-14-2024 14:05-0400 SaO2% (BldA) [Mass fraction] 97 % Fernandez Marte MD Work Phone: [facility] 10-14-2024 14:05-0400 Systolic blood pressure 179 mm[Hg] Fernandez Marte MD Work Phone: [facility] Comment on above: md notified 09-14-2024 13:03-0500 Diastolic Blood Pressure Non-Invasive 86 mm[Hg] DR DANIELA KATZ MD [facility] 09-14-2024 13:03-0500 Heart rate 92 /min DR DANIELA KAZT MD [facility] 09-14-2024 13:03-0500 Respiratory rate 16 /min DR DANIELA KATZ MD [facility] 09-14-2024 13:03-0500 Systolic Blood Pressure Non-Invasive 158 mm[Hg] DR DANIELA KATZ MD [facility] 09-14-2024 11:07-0500 Blood Pressure Cuff Size DR DANIELA KATZ MD [facility] 09-14-2024 11:07-[address] DANIELA KATZ MD [facility] 09-14-2024 11:07-[address] DANIELA KATZ MD [facility] 09-14-2024 11:07-0500 Body temperature 98.78 [degF] DR DANIELA KATZ MD [facility] 09-14-2024 11:07-0500 Diastolic Blood Pressure Non-Invasive 81 mm[Hg] DR DANIELA KATZ MD [facility] 09-14-2024 11:07-0500 Heart rate 95 /min DR DANIELA KATZ MD [facility] 09-14-2024 11:07-0500 Respiratory rate 16 /min DR DANIELA KATZ MD [facility] 09-14-2024 11:07-0500 Systolic Blood Pressure Non-Invasive 164 mm[Hg] DR DANIELA KATZ MD [facility] 09-05-2024 09:12-0500 Body mass index (BMI) [Ratio] 30.78 kg/m2 Pacc 1 Work Phone: [facility] 09-05-2024 09:12-0500 Body temperature 98.71 [degF] Pacc 1 Work Phone: [facility] 09-05-2024 09:12-0500 Body weight 94.53 kg Pacc 1 Work Phone: [facility] 09-05-2024 09:12-0500 Diastolic blood pressure 76 mm[Hg] Pacc 1 Work Phone: [facility] 09-05-2024 09:12-0500 Heart rate 86 /min Pacc 1 Work Phone: [facility] 09-05-2024 09:12-0500 Respiratory rate 16 /min Pacc 1 Work Phone: [facility] 09-05-2024 09:12-0500 SaO2% (BldA) [Mass fraction] 95 % Pacc 1 Work Phone: [facility] 09-05-2024 09:12-0500 Systolic blood pressure 152 mm[Hg] Pacc 1 Work Phone: [facility] 07-22-2024 10:57-0500 Body height 175.3 cm Fernandez Marte MD Work Phone: [facility] 07-22-2024 10:57-0500 Body mass index (BMI) [Ratio] 30.72 kg/m2 Fernandez Marte MD Work Phone: [facility] 07-22-2024 10:57-0500 Body temperature 97.9 [degF] Fernandez Marte MD Work Phone: [facility] 07-22-2024 10:57-0500 Body weight 94.35 kg Fernandez Marte MD Work Phone: [facility] 07-22-2024 10:57-0500 Diastolic blood pressure 81 mm[Hg] Fernandez Marte MD Work Phone: [facility] Comment on above: MD benedict 07-22-2024 10:57-0500 Heart rate 83 /min Fernandez Marte MD Work Phone: [facility] 07-22-2024 10:57-0500 Respiratory rate 20 /min Fernandez Marte MD Work Phone: [facility] 07-22-2024 10:57-0500 SaO2% (BldA) [Mass fraction] 97 % Fernandez Marte MD Work Phone: [facility] 07-22-2024 10:57-0500 Systolic blood pressure 200 mm[Hg] Fernandez Marte MD Work Phone: [facility] Comment on above: MD aware Encounters Encounter Date Encounter Type Care Provider Facility Start: 04-17-2025 End: 04-17-2025 [facility] Start: 11-27-2024 End: 11-27-2024 Patient encounter procedure Syl Aj HOSPICE AIDE Work Phone: [facility] Cardiology Comment on above: AF (paroxysmal atria l fibrillation) (HCC) (Primary Dx); Encounter for long-term (current) use of antiplatelets/antithrombotics; Status post cryoablation; Incomplete RBBB; Essential hypertension; History of diabetes mellitus; Non-smoker Start: 11-27-2024 End: 11-27-2024 [facility] SHANNON Liz [facility] Facility:[id number] Start: 11-04-2024 End: 11-04-2024 Telephone encounter Fernandez Marte MD Work Phone: Radiation Oncology Comment on above: Patient Question Start: 10-14-2024 End: 10-15-2024 Patient encounter procedure Fernandez Marte MD Work Phone: [facility] Start: 10-14-2024 End: 10-15-2024 Radiation Oncology Note Fernandez Marte MD Work Phone: Rad[facility]cology Comment on above: Simulation Note Start: 10-14-2024 End: 10-14-2024 Orders Only Fernandez Marte MD Work Phone: Radiation Oncology Comment on above: Malignant neoplasm o f prostate (HCC) (Primary Dx) Start: 10-09-2024 End: 10-09-2024 Telephone encounter Frances Velez RN Radiation Oncology Comment on above: Post Radiation Treat ment Follow Up; Brass Plater - Other Start: 09-24-2024 End: 09-25-2024 Patient encounter procedure Fernandez Marte MD Work Phone: Radiation Oncology Start: 09-24-2024 End: 09-25-2024 Radiation Oncology Note Fernandez Marte MD Work Phone: Radiation Oncology Comment on above: Treatment Planning Completion Note Simulation Note Start: 09-24-2024 End: 09-24-2024 ambulatory UMESH PALOMINO Facility:[facility] Start: 09-23-2024 End: 09-23-2024 Orders Only Fernandez Marte MD Work Phone: Radiation Oncology Comment on above: Malignant neoplasm o f prostate (HCC) (Primary Dx) Brachytherapy; Brass Plater - Other Start: 09-18-2024 End: 09-18-2024 Telephone encounter Yana Braxton APRN.CNP Work Phone: Urology Start: 09-14-2024 End: 09-14-2024 Emergency department patient visit DR DANIELA KATZ MD [facility] Start: 09-05-2024 Encounter for other preprocedural examination UMESH PALOMINO [facility] Start: 09-05-2024 End: 09-05-2024 Subsequent hospital visit by physician Xr [facility] Work Phone: Radiology Comment on above: Pre-operative examin ation [Z01.818] Start: 09-05-2024 End: 09-05-2024 Admission to establishment [facility] 1 Work Phone: Pre Anesthesia Start: 09-05-2024 End: 09-05-2024 ambulatory UMESH PALOMINO Facility:[facility] Start: 09-05-2024 End: 09-05-2024 Anesthesia consultation [facility] 1 Work Phone: Pre Anesthesia Comment on above: Pre-operative examin ation (Primary Dx); AF (paroxysmal atrial fibrillation) (HCC); Essential hypertension; Type 2 diabetes mellitus without complication, without long-term current use of insulin (HCC); Sleep apnea, unspecified type; BMI 30.0-30.9,adult; Incomplete RBBB; Benign prostatic hyperplasia with urinary hesitancy; Recent URI Start: 09-05-2024 End: 09-05-2024 Preprocedural examination done [facility] 1 Work Phone: [facility] Work Phone: Start: 09-04-2024 ambulatory Sarabjit King Faci lity:[facility] Start: 08-12-2024 End: 08-12-2024 Orders Only Fernandez Marte MD Work Phone: Radiation Oncology Comment on above: Malignant neoplasm o f prostate (HCC) (Primary Dx) Start: 08-01-2024 End: 08-02-2024 Orders Only Fernandez Marte MD Work Phone: Radiation Oncology Comment on above: Malignant neoplasm o f prostate (HCC) (Primary Dx) Start: 07-22-2024 End: 07-22-2024 ambulatory UMESH PALOMINO Facility:[facility] Start: 07-22-2024 End: 07-22-2024 Patient encounter procedure Fernandez Marte MD Work Phone: Radiation Oncology Comment on above: Malignant neoplasm o f prostate (HCC) (Primary Dx) Start: 07-09-2024 End: 07-09-2024 Telephone encounter Fernandez Marte MD Work Phone: Radiation Oncology Comment on above: Brass Plater - O ther Start: 07-02-2024 End: 07-02-2024 ambulatory Sarabjit King Facility:[facility] Start: 06-04-2024 End: 06-04-2024 ambulatory Boogie [facility] Facility:[facility] Start: 05-19-2023 End: 05-19-2023 ambulatory ELODIA [facility] Start: 11-17-2017 End: 11-18-2017 Ambulatory MIRLANDE ROSENBERG Facility:[facility] Procedures Date Procedure Procedure Detail Performing Clinician Start: 11-27-2024 Ecg routine ecg w/least 12 lds i&r only Syl Aj APRN.HOSPICE AIDE Work Phone: Start: 09-05-2024 Radiologic exam chest 2 views Tatiana Carrero APRN.HOSPICE AIDE Work Phone: Start: 10-29-2015 H/O: surgery Status post cryoablation Fernandez Marte MD Work Phone: Cardioversion DR DANIELA JUAREZ MD H/O: surgery Status post cryoablation Syl Aj BAG MENDER.[facility] Work Phone: Tonsillectomy DR DANIELA JUAREZ MD Plan of Treatment Date Care Activity Detail Author Start: 11-27-2025 End: 11-27-2025 Patient encounter procedure 11/27/2025 9:00 AM EDT Office Visit [address] [place] [address] Syl Aj, BAG MENDER.[address] [place], [place] [id number] 1 year f/u [facility] Cardiology Comment on above: 1 year f/u Start: 03-05-2025 Hemoglobin A1c measurement HbA1C [facility] Start: 11-27-2024 End: 11-27-2024 Patient encounter procedure 11/27/2024 9:00 AM EDT Office Visit [address] [place] [id number] Syl Aj, BAG MENDER.[address] [place], [place] [id number] 1 year f/u. [facility] Cardiology Comment on above: 1 year f/u. Start: 11-15-2024 End: 11-15-2024 Patient encounter procedure 11/15/2024 10:30 AM EDT Office Visit [facility] Cardiology [address] [place] [address] [place] [phone] Khanh Starr [address] [place], [place] [id number] 1 year f/u. [facility] Cardiology Comment on above: 1 year f/u. Start: 10-14-2024 End: 10-14-2024 Orders Only Radiation Oncology Comment on above: Malignant neoplasm o f prostate (HCC) (Primary Dx) POST I-125 POST SEED I-125 FOLL OW UP Start: 09-24-2024 End: 09-24-2024 Admission to same day surgery center 09/24/2024 8:55 AM EST - 09/24/2024 10:30 AM EST Surgery [facility] [place] [address] Jj Petersen MD [address] [place] [address] INSERTION TRANSPERINEAL NEEDLES OR CATHETERS PROSTATE FOR INTERSTITIAL RADIOELEMENT APPLICATION [facility] Comment on above: INSERTION TRANSPERIN EAL NEEDLES OR CATHETERS PROSTATE FOR INTERSTITIAL RADIOELEMENT APPLICATION Start: 09-24-2024 End: 09-24-2024 Cystourethroscopy CYSTOSCOPY FLEXIBLE Malignant neoplasm of prostate (HCC) 09/24/2024 8:55 AM EST SP OR Start: 09-24-2024 End: 09-24-2024 Interstitial radiation source applic complex APPLICATION INTERSTITIAL RADIATION SOURCE COMPLEX Malignant neoplasm of prostate (HCC) 09/24/2024 8:55 AM EST SP OR Start: 09-24-2024 Subsequent hospital visit by physician 09/24/2024 8:55 AM EST Hospital Encounter [facility] [place] [address] Jj Petersen MD [address] [place] [address] Malignant neoplasm of prostate (HCC) [C61] [facility] Comment on above: Malignant neoplasm o f prostate (HCC) [C61] Start: 09-24-2024 End: 09-24-2024 Transperineal plmt ndl/caths prostate radj insj INSERTION TRANSPERINEAL NEEDLES OR CATHETERS PROSTATE FOR INTERSTITIAL RADIOELEMENT APPLICATION Malignant neoplasm of prostate (HCC) 09/24/2024 8:55 AM EST SP OR Start: 09-24-2024 End: 09-24-2024 Us guidance interstitial radioelment application ULTRASONIC GUIDANCE FOR INTERSTITIAL RADIO ELEMENT APPLICATION Malignant neoplasm of prostate (HCC) 09/24/2024 8:55 AM EST SP OR Start: 09-24-2024 End: 09-24-2024 Us transrct prstate vol brachytx plnning spx ULTRASOUND TRANSRECTAL PROSTATE Malignant neoplasm of prostate (HCC) 09/24/2024 8:55 AM EST SP OR Start: 09-05-2024 End: 12-05-2024 Hemoglobin A1c in Blood [facility] Comment on above: Expected: 09/05/2024 , Expires: 12/05/2024 Start: 09-05-2024 End: 12-05-2024 PSA/PROSTATE SPECIFIC ANTIGEN SCREENING [facility] Comment on above: Expected: 09/05/2024 , Expires: 12/05/2024 Start: 09-05-2024 End: 09-05-2024 Anesthesia consultation 09/05/2024 9:20 AM EST PAT Pre Anesthesia [address] [place] [address] 1, [facility] [address] [place] [address] INSERTION TRANSPERINEAL NEEDLES OR CATHETERS PROSTATE FOR INTERSTITIAL RADIOELEMENT APPLICATION [7916] - Pelvis - N/A Pre Anesthesia Comment on above: INSERTION TRANSPERIN EAL NEEDLES OR CATHETERS PROSTATE FOR INTERSTITIAL RADIOELEMENT APPLICATION [7916] - Pelvis - N/A Start: 07-31-2024 Advance Directive Discussion Advance Directive Discussion [facility] Start: 03-31-2024 Covid-19 Vaccine ( season) Covid-19 Vaccine ( season) [facility] Start: 03-31-2024 Influenza vaccination Influenza Vacc ine (#1) [facility] Start: 07-31-2023 Advance Directive Discussion Advance Directive Discussion [facility] Start: 2010 RSV Vaccine (1 - Ris k 60-74 years 1-dose series) RSV Vaccine (1 - Risk 60-74 years 1-dose series) [facility] Start: 2000 Shingrix Vaccine (1 of 2) Kaufman grix Vaccine (1 of 2) [facility] Start: 1995 Screening for malign ant neoplasm of colon [facility] Start: 1969 Pneumococcal Vaccine : 50+ (1 of 2 - PCV) Pneumococcal Vaccine: 50+ (1 of 2 - PCV) [facility] Start: 1969 Urine microalbumin profile DTa P,Tdap,Td Vaccine (1 - Tdap) [facility] Start: 1968 Annual PCP Team Supervisor Education merrill Disease Visit Annual PCP Team Chronic Disease Visit [facility] Start: 1968 Anxiety Screening Anxiety Screening [facility] Start: 1968 BP Controlled (<130/80) BP Con trolled (<130/80) [facility] Start: 1968 Depression Screening Depression Scre ening [facility] Start: 1968 Hepatitis B surface antibody level LDL Cholesterol [facility] Start: 1968 Hepatitis C screening Hepatitis C Sc reening [facility] Start: 1960 Diabetic foot examination Diabetic F oot Exam [facility] Start: 1960 Glaucoma screening Dilated Retinal E xam [facility] Start: 1960 Hepatitis B screening Urine Albumin:Creatinine Ratio [facility] Start: 1956 Pneumococcal Vaccine : 65+ (1 of 2 - PCV) Pneumococcal Vaccine: 65+ (1 of 2 - PCV) [facility] Start: 1955 Hemoglobin A1c measurement HbA1C [facility] CT Guidance for radi ation treatment of Unspecified body region CT SIM PLANNING RADIATION ONCOLOGY Radiology Routine Malignant neoplasm of prostate (HCC) Ordered: 08/02/2024 [facility] Work Phone: Comment on above: Ordered: 08/02/2024 End: 09-05-2025 ECG COMPLETE ECG COMPLETE ECG Routine Pre-operative examination 1 Occurrences starting 09/05/2024 until 09/05/2025 [facility] Work Phone: Comment on above: 1 Occurrences starti ng 09/05/2024 until 09/05/2025 ECG COMPLETE ECG COMPLETE ECG Routine AF (paroxysmal atrial fibrillation) (HCC) Essential hypertension 11/27/2024 9:07 AM EDT [facility] Work Phone: OUTSIDE SURG PATH SL STEPHEN REVIEW OUTSIDE SURG PATH SLIDE REVIEW Lab Routine Ordered: 08/12/2024 [facility] Work Phone: Comment on above: Ordered: 08/12/2024 Payers Date Payer Category Payer Unknown [id number] 2022 Unknown [id number] 2022 Unknown 102 2017 Self-pay 1950 Unknown [id number] 1950 Unknown [id number] [id number] Unknown [id number] [id number] [id number] Unknown [id number] [id number] [id number] Unknown [id number] [id number] [id number] Social History Date Type Detail Facility Start: 03-13-2023 Tobacco smoking stat [facility] Never smoked tobacco [facility] Start: 03-13-2023 Tobacco use and exposure Smoke less tobacco non-user [facility] Start: 03-06-2024 End: 11-27-2024 Alcoholic beverage intake Lifetime non-drinker (finding) [facility] Start: 03-13-2023 End: 03-06-2024 History of Social function [facility] Start: 03-13-2023 End: 03-06-2024 Tobacco use panel [facility] National Score (1-10 0), lower number is lower risk 38 [facility] Start: 1950 Sex assigned at Not on file [facility] Sexual Orientation Sadia robbins [facility] Sex Assigned At Male [facility] Start: 06-25-2019 Sex Male (finding) [facility] Medical Equipment Procedure Code Equipment Code Equipment Origin al Text Equipment Identifier Dates Seed Brachysourc e Iodine-125 Brachytherapy Calibrate Prostate - [id number] Start: 09-24-2024 Comment on above: Description: Sources : 148 [place]: 41 Goals Date Patient Goal Desired Activity /State Personal health goal Functional Status Date Assessment Result Facility 09-14-2024 Functional Status Independent Sadia lozada [facility] 09-14-2024 Functional Status Ambulation in [place], Ambulation in Room [facility] Mental Status Date Assessment Result Facility 09-14-2024 Mental Status Orientation Oriented x 4 [facility] 09-14-2024 Mental Status [facility] Clinical Notes 07-09-2024 to 04-17-2025 Syl Aj APRN.AYUSH - 11/27/2024 8:52 AM EDTTelephone Encounter - Frances Velez RN - 11/04/2024 11:12 AM EDTTelephone Encounter - Frances Velez RN - 11/04/2024 11:12 AM EDT Note Date & Type Note Facility 04-17-2025 Note HNO ID: [id number] Author: CHET JOYCE APRN.AYUSH Service: ? Author Type: Nurse Practitioner Type: Progress Notes Filed: 04/17/2025 13:50 Note Text: Radiation Oncology - Follow Up Note SURVIVORSHIP PATIENT NAME: Huber Peterson PATIENT DIAGNOSIS: Huber Peterson is a 74 year old gentleman with adenocarcinoma of the prostate, initial PSA of 13.27 ng/mL, Sigel of 4+5=9, T2a. Status post I-125 seed implantation on 09/24/2024. INTERVAL HISTORY: The patient presents for routine follow-up. He was last seen on by Patient was diagnosed with prostate cancer and underwent brachytherapy in August. Prior to treatment, his PSA was 18 ng/mL. In January, his PSA decreased to 5.09 ng/mL. He has been monitored by his primary care provider, who orders PSA tests every six months. Since treatment, he reports urinary symptoms, including a weak stream, urgency, and occasional incomplete emptying, which have improved over the past few weeks. He denies nocturia and significant incontinence but notes that drinking water triggers frequent urination. He experiences pain when delaying urination, sometimes resulting in hematuria, but a recent urinalysis showed no infection. He is currently taking tamsulosin 0.4 mg once daily in the evening, which has helped with symptoms. He attempted to discontinue tamsulosin but found it difficult to initiate urination without it. He reports regular bowel movements (1-2 per day) without hematochezia. He is not sexually active and is not taking medication for erectile dysfunction. He denies chest pain, shortness of breath, fatigue, or new joint swelling. He reports a sore knee, which has improved. He maintains a stable weight, has a good appetite, and remains physically active through work. He denies smoking or alcohol use. He is up to date on preventive health measures, including a colonoscopy within the last two years, which showed no significant findings. PSA HISTORY: 01/2025: 5 waiting for scanned documents from OSH patient to fax 10/14/2024 18.53 09/05/2024 22.31 ALLERGIES: Allergies: Lisinopril Unknown Ogujaxg-Lrc-Olu Red* Unknown MEDICATIONS: Current Outpatient Medications on File Prior to Visit Medication Sig tamsulosin (FLOMAX) 0.4 mg Take 2 capsules by mouth daily at bedtime. (Patient taking differently: Take 0.4 mg by mouth two times a day.) insulin NPH human isophane (NOVOLIN N FLEXPEN SUBCUTANEOUS) Inject subcutaneously. omega-3 fatty acids (SUPER OMEGA-3 ORAL) Take by mouth twice daily. glipiZIDE (GLUCOTROL) 5 mg tablet Take 5 mg by mouth three times daily. aspirin, enteric coated (ASPIRIN, ENTERIC COATED) 81 mg EC tablet Take 81 mg by mouth once daily. metFORMIN (GLUCOPHAGE) 1,000 mg tablet Take 1,000 mg by mouth three times daily. No current facility-administered medications on file prior to visit. The patient reports the following pertinent history: D/N = variable based intake /0 Hematuria: No Dysuria: Yes Incontinence: Yes Urgency: moderate Frequency (urinate again less than 2hrs after you finished): 2 (less than half the time) Incomplete emptyin (less than 1 time in 5) Intermittency (stopping and starting several times during urination): 0 (not at all) Weak stream: 2 (less than half the time) Straining( push or strain to urinate): 1 (less than 1 time in 5) Medications to aid urination: flomax 1 cap per night Bowel movement frequency: 1-2/day Bowel movement quality: normal Blood per rectum: No Last Colonoscopy:with the last 2 years Sexual activity: Unable to maintain erections Erectile dysfunction: Medications for erectile dysfunction: ADT:no REVIEW OF SYSTEMS: Constitutional: (-) weight change, (-) fatigue, (-) decreased appetite, (-) sleep disturbance Cardiovascular: (-) chest pain Respiratory: (-) shortness of breath Gastrointestinal: (-) hematochezia Genitourinary: (+) slow urinary stream, (+) urinary urgency, (+) urinary frequency, (+) incomplete bladder emptying, (+) straining to void, (+) hematuria, (+) dysuria, (+) urinary incontinence, (+) erectile dysfunction, (-) nocturia Musculoskeletal: (+) knee pain Neurological: (+) left leg pain Survivorship Review of Systems Patient identified the following survivorship concerns related to his recent cancer diagnosis and treatment: Cardiac Toxicity: No Emotional Health: No Cognitive Function: No Fatigue/Sleep: No Lymphedema: No Pain: No Endocrine: No Sexual Function: Yes, Yes Concerns regarding sexual function, sexual activity, sexual relationships or sex life? No Fertility difficulties? No Healthy Lifestyle: Yes Physical Activity Participate in physical activity 30 minutes, 3 days per week: Yes Physical intolerance or condition (ie: fatigue, SOB, shoulder injury) that prohibits patient from participating in physical activity or exercise: No Patient has the following cancer-related considerat (more content not included)... [facility] 11-27-2024 Note HNO ID: [id number] Author: SYL AJ APRN.HOSPICE AIDE Service: ? Author Type: Nurse Practitioner Type: Progress Notes Filed: 11/27/2024 13:08 Note Text: [facility] Department of Cardiology Referring Provider: No ref. provider found Date: November 27, 2024 Chief Complaint: Established patient, in atrial fibrillation Subjective: Huber Peterson is a 74 year old male who presents with a history of atrial fibrillation, status post-ablation, presenting for evaluation of cholesterol management and follow-up. The patient reports well-controlled blood glucose levels. Recent labs from wellness check,finding total cholesterol 280 and LDL 144. He recently started a new hypercholesterolemia (unsure of the name of the medication), prescribed by his clinician, after experiencing myalgias with prior statin therapy. He also takes fish oil supplements. He consumes cheese almost daily and acknowledges the need to reduce his intake. He denies any bleeding symptoms such as epistaxis, melena, or easy bruising. He has a history of atrial fibrillation and underwent an ablation performed by Dr. [place]on. He denies experiencing palpitations, tachycardia, or chest pain. He notes occasional dyspnea, which he attributes to age. He denies any new onset of dyspnea. He underwent brachytherapy for prostate cancer in August and is currently taking tamsulosin, one capsule in the morning and one in the evening, to manage urinary symptoms and assist with blood pressure control. He denies any episodes of dizziness. He is monitored with PSA levels every six months. He has a family history of prostate cancer in his grandfather. 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 20mg Nonrheumatic atrial fibrillation (HCC) Personal history of other diseases of the circulatory system Prostate cancer (HCC) Sleep apnea Status post cryoablation 10/29/2015 successful isolation of all four pulmonary veins PAST SURGICAL HISTORY Procedure Laterality Date LEG SURGERY HX 10/2017 leg fx PAST SURGICAL HISTORY OF surgery for sleep apnea PAST SURGICAL HISTORY OF 09/24/2024 BRCA therapy for Prostate cancer TONSILLECTOMY HX FAMILY HISTORY Problem Relation Age of Onset Cancer Mother Heart Attack Father 66 other (arrhythmias) Sister other (rheumatic fever) Brother SOCIAL HISTORY: Tobacco Use: Never Alcohol Use: Never Drug Use: Never Employer And Job Title: None on file Years Of Education Completed: Not specified Marital Status: MEDICATIONS: Current Outpatient Medications Medication Sig tamsulosin (FLOMAX) 0.4 mg Take 2 capsules by mouth daily at bedtime. (Patient taking differently: Take 0.4 mg by mouth two times a day.) insulin NPH human isophane (NOVOLIN N FLEXPEN SUBCUTANEOUS) Inject subcutaneously. omega-3 fatty acids (SUPER OMEGA-3 ORAL) Take by mouth twice daily. glipiZIDE (GLUCOTROL) 5 mg tablet Take 5 mg by mouth three times daily. aspirin, enteric coated (ASPIRIN, ENTERIC COATED) 81 mg EC tablet Take 81 mg by mouth once daily. metFORMIN (GLUCOPHAGE) 1,000 mg tablet Take 1,000 mg by mouth three times daily. No current facility-administered medications for this visit. I have personally reviewed the patients past medical history including social, family, surgical, diagnostics, and medications./AB REVIEW OF SYSTEMS: Review of Systems Constitutional: Negative for chills and fatigue. Respiratory: Positive for chest tightness and shortness of breath. Cardiovascular: Positive for palpitations. Negative for chest pain and leg swelling. Neurological: Negative for dizziness, syncope, weakness and light-headedness. Hematological: Bruises/bleeds easily. Psychiatric/Behavioral: Negative for confusion and hallucinations. Vitals: BP 130/82 (BP Site: Left Arm, BP Position: Sitting) Pulse 78 Ht 175.3 cm (5' 9) Wt 93.2 kg (205 lb 7.5 oz) SpO2 98% BMI 30.34 kg/m? PHYSICAL EXAMINATION: BP 130/82 (BP Site: Left Arm, BP Position: Sitting) Pulse 78 Ht 175.3 cm (5' 9) Wt 93.2 kg (205 lb 7.5 oz) SpO2 98% BMI 30.34 kg/m? Last 3 Encounter BP Readings: Date: BP: 10/14/2024 179/72[md notified[ 09/24/2024 192/93 09/05/2024 152/76 Last 3 Encounter Pulse Readings: Date: Pulse: 10/14/2024 73 09/24/2024 79 09/05/2024 86 Last 3 Encounter Wt Readings: Date: Wt: 10/14/2024 92.1 kg (203 lb) 09/05/2024 94.5 kg (208 lb 6.4 oz) 08/02/2024 94.3 kg (208 lb) Physical Exam Consti (more content not included)... [facility] 11-27-2024 History of Present illness Narrative Images from the original note were not included. [facility] Department of Cardiology Referring Provider: No ref. provider found Date: November 27, 2024 Chief Complaint: Established patient, in atrial fibrillation Subjective: Huber Peterson is a 74 year old male who presents with a history of atrial fibrillation, status post-ablation, presenting for evaluation of cholesterol management and follow-up. The patient reports well-controlled blood glucose levels. Recent labs from wellness check,finding total cholesterol 280 and LDL 144. He recently started a new hypercholesterolemia (unsure of the name of the medication), prescribed by his clinician, after experiencing myalgias with prior statin therapy. He also takes fish oil supplements. He consumes cheese almost daily and acknowledges the need to reduce his intake. He denies any bleeding symptoms such as epistaxis, melena, or easy bruising. He has a history of atrial fibrillation and underwent an ablation performed by Dr. De Los Santos. He denies experiencing palpitations, tachycardia, or chest pain. He notes occasional dyspnea, which he attributes to age. He denies any new onset of dyspnea. He underwent brachytherapy for prostate cancer in August and is currently taking tamsulosin, one capsule in the morning and one in the evening, to manage urinary symptoms and assist with blood pressure control. He denies any episodes of dizziness. He is monitored with PSA levels every six months. He has a family history of prostate cancer in his grandfather. 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 Nonrheumatic atrial fibrillation (HCC) Personal history of other diseases of the circulatory system Prostate cancer (HCC) Sleep apnea Status post cryoablation 10/29/2015 successful isolation of all four pulmonary veins PAST SURGICAL HISTORY Procedure Laterality Date LEG SURGERY HX 10/2017 leg fx PAST SURGICAL HISTORY OF surgery for sleep apnea PAST SURGICAL HISTORY OF 09/24/2024 BRCA therapy for Prostate cancer TONSILLECTOMY HX FAMILY HISTORY Problem Relation Age of Onset Cancer Mother Heart Attack Father 66 other (arrhythmias) Sister other (rheumatic fever) Brother SOCIAL HISTORY: Tobacco Use: Never Alcohol Use: Never Drug Use: Never Employer And Job Title: None on file Years Of Education Completed: Not specified Marital Status: MEDICATIONS: Current Outpatient Medications Medication Sig tamsulosin (FLOMAX) 0.4 mg Take 2 capsules by mouth daily at bedtime. (Patient taking differently: Take 0.4 mg by mouth two times a day.) insulin NPH human isophane (NOVOLIN N FLEXPEN SUBCUTANEOUS) Inject subcutaneously. omega-3 fatty acids (SUPER OMEGA-3 ORAL) Take by mouth twice daily. glipiZIDE (GLUCOTROL) 5 mg tablet Take 5 mg by mouth three times daily. aspirin, enteric coated (ASPIRIN, ENTERIC COATED) 81 mg EC tablet Take 81 mg by mouth once daily. metFORMIN (GLUCOPHAGE) 1,000 mg tablet Take 1,000 mg by mouth three times daily. No current facility-administered medications for this visit. I have personally reviewed the patients past medical history including social, family, surgical, diagnostics, and medications./AB REVIEW OF SYSTEMS: Review of Systems Constitutional: Negative for chills and fatigue. Respiratory: Positive for chest tightness and shortness of breath. Cardiovascular: Positive for palpitations. Negative for chest pain and leg swelling. Neurological: Negative for dizziness, syncope, weakness and light-headedness. Hematological: Bruises/bleeds easily. Psychiatric/Behavioral: Negative for confusion and hallucinations. Vitals: BP 130/82 (BP Site: Left Arm, BP Position: Sitting) Pulse 78 Ht 175.3 cm (5' 9) Wt 93.2 kg (205 lb 7.5 oz) SpO2 98% BMI 30.34 kg/m PHYSICAL EXAMINATION: BP 130/82 (BP Site: Left Arm, BP Position: Sitting) Pulse 78 Ht 175.3 cm (5' 9) Wt 93.2 kg (205 lb 7.5 oz) SpO2 98% BMI 30.34 kg/m Last 3 Encounter BP Readings: Date: BP: 10/14/2024 179/72[md notified[ 09/24/2024 192/93 09/05/2024 152/76 Last 3 Encounter Pulse Readings: Date: Pulse: 10/14/2024 73 09/24/2024 79 09/05/2024 86 Last 3 Encounter Wt Readings: Date: Wt: 10/14/2024 92.1 kg (203 lb) 09/05/2024 94.5 kg (208 lb 6.4 oz) 08/02/2024 94.3 kg (208 lb) Physical Exam Constitutional: General: He is not in acute distress. Appearance: Normal appearance. He is not ill-appearing or diaphoretic. HENT: Head: Normocephalic. Nose: Nose normal. Cardiovascular: Rate and Rhythm: Normal rate and regular rhythm. Heart sounds: No murmur heard. Pulmonary: Breath sounds: No wheezing, rhonchi or rales. Abdominal: Tenderness: There is no abdominal tenderness. There is no guarding. Hernia: A hernia is present. Musculoskeletal: Right lower leg: No edema. Left lower leg: No edema. Skin: Coloration: Skin is not jaundiced or pale. Findings: No bruising or rash. Neurological: General: No focal deficit present. Mental Status: He is alert. Psychiatric: Mood and Affect: Mood normal. Behavior: Behavior normal. Judgment: Judgment normal. LABS: Glucose (mg/dL) Date Value 09/05/2024 262 09/20/2015 182 Potassium (mmol/L) Date Value 09/05/2024 4.4 09/20/2015 4.5 Sodium (mmol/L) Date Value 09/05/2024 140 09/20/2015 138 Chloride (mmol/L) Date Value 09/05/2024 103 09/20/2015 101 CO2 (mmol/L) Date Value 09/05/2024 27 09/20/2015 28 Creatinine (mg/dL) Date Value 09/05/2024 0.77 09/20/2015 0.85 BUN (mg/dL) Date Value 09/05/2024 17 09/20/2015 13 Anion Gap (mmol/L) Date Value 09/05/2024 10 09/20/2015 13.5 Calcium (mg/dL) Date Value 09/20/2015 8.7 Calcium, Total (mg/dL) Date Value 09/05/2024 9.3 Protein, Total (g/dL) Date Value 09/05/2024 7.4 Albumin (g/dL) Date Value 09/05/2024 4.2 Bilirubin, Total (mg/dL) Date Value 09/05/2024 0.4 Alkaline Phosphatase (U/L) Date Value 09/05/2024 75 AST (U/L) Date Value 09/05/2024 17 ALT (U/L) Date Value 09/05/2024 16 Hemoglobin (g/dL) Date Value 09/05/2024 14.5 09/20/2015 14.9 Hematocrit (%) Date Value 09/05/2024 43.8 09/20/2015 44.2 WBC Date Value 09/05/2024 5.62 k/uL 09/20/2015 6.6 x10(3) No results found for: CHOL, HDL, LDL, TG DIAGNOSTIC RESULTS: EKG: I have provided a picture of today's EKG for your convenience and easy access. please note the interpretation on the EKG image is computer-generated and not the official interpretation. ASSESSMENT/PLAN: 1. AF (paroxysmal atrial fibrillation) (HCC) - ICD9: 427.31, ICD10: I48.0 (primary diagnosis) Today's EKG shows normal sinus rhythm - HR 78 - QTc 449 - ECG COMPLETE 2. Encounter for long-term (current) use of antiplatelets/antithrombotics - ICD9: V58.63, ICD10: Z79.02 Patient is on daily aspirin therapy. No reports of epistaxis, melena, or ecchymosis. - Continue daily aspirin therapy. - Monitor for any signs of bleeding. 3. Status post cryoablation - ICD9: V45.89, ICD10: Z98.890 Cryoablation on 10/29/2015 -successful isolation of all four pulmonary veins 4. Incomplete RBBB - ICD9: 426.4, ICD10: I45.10 EKG shows incomplete right bundle branch block. - No immediate intervention required. - Continue regular cardiac monitoring. 5. Essential hypertension - ICD9: 401.9, ICD10: I10 Blood pressure is well-controlled with current medication regimen, including tamsulosin, which also aids in managing prostate-related symptoms. - Continue current medication regimen. - Monitor blood pressure regularly. - ECG COMPLETE 6. History of diabetes mellitus - ICD9: V12.29, ICD10: Z86.39 -Followed and managed by primary care 7. Non-smoker - ICD9: V49.89, ICD10: Z78.9 Syl Aj APRN.HOSPICE AIDE FOLLOW UP: 1 year atrial fibrillation Greater than 50% of this > 20 minute visit was spent face to face discussing current diagnosis and treatment plan consisting of above outlined plan. Follow-up as documented above. I have discussed the recommended treatment, alternative treatments and other treatment options in detail. I have discussed the risks, benefits and side effect of the recommended treatment. I have attempted to answer all their questions to their satisfaction and understanding of the explanation has been voiced. With approval we will pursue the recommended treatment. During this office visit I reviewed the patients previous Cardiac testing and procedures results and reviewed the results with the patient. Syl Jorgensen CNP have reviewed and agree with the information in the medical record transcribed by Sita Mathur MA. Syl Aj APRN.CNP This patient note was partially generated from using the [employer] voice recognition system. There may be some incorrect words, spelling, and punctuation that were not noted in checking the note prior to saving documented in this encounter [facility] 11-04-2024 Telephone encounter Note Patient states he has a history of atrial fibrillation and had a cardiac ablation ~9 years ago. However patient has not received another diagnosis of afib/aflutter recently, he can just tell. Encouraged patient to reach out to his clinical services professional JACKY to evaluate his cardiac rhythm. If he is unable to reach them, he should contact his PCP or proceed to ED for evaluation. Educated patient on the risk of afib/aflutter causing CVA/UT. He verbalized understanding and will reach out to his clinical services professional. Frances Velez RN [facility] 11-04-2024 Miscellaneous Notes Patient states he has a history of atrial fibrillation and had a cardiac ablation ~9 years ago. However patient has not received another diagnosis of afib/aflutter recently, he can just tell. Encouraged patient to reach out to his clinical services professional JACKY to evaluate his cardiac rhythm. If he is unable to reach them, he should contact his PCP or proceed to ED for evaluation. Educated patient on the risk of afib/aflutter causing CVA/UT. He verbalized understanding and will reach out to his clinical services professional. Frances Velez RN Huber called and wanted to know if the RT he had and or medications he takes would be the cause of his Afib and he said he has Aflutter. Huber would like a call back [phone] documented in this encounter [facility] 11-04-2024 Telephone encounter Note Huber called and wanted to know if the RT he had and or medications he takes would be the cause of his Afib and he said he has Aflutter. Huber would like a call back [phone] [facility] 10-14-2024 Note HNO ID: [id number] Author: FERNANDEZ MARTE MD Service: ? Author Type: Physician Type: Progress Notes Filed: 10/14/2024 14:50 Note Text: [facility] CLINICAL NOTE Radiation Oncology PATIENT NAME: Huber Peterson [facility] NO.: [id number] ATTENDING PHYSICIAN: Fernandez Marte M.D. DATE OF SERVICE: October 14, 2024 HPI: Huber Peterson is a gentleman with adenocarcinoma of the prostate, initial PSA of 13.27 ng/mL, Sigel of 4+5=9, T2a. Status post I-125 seed implantation on 09/24/2024. D/N = 6-8/2; bowel movements 1 per day; no dysuria ; no hematuria; no hematochezia ; weak force of stream; he is not potent. Physical exam of the prostate deferred, however, examination of his postoperative CAT scan demonstrates adequate seed positioning without evidence for periprostatic abscess formation or urinary retention. ASSESSMENT: Expected toxicity. PLAN: Please schedule F/U with Chet Joyce CNP in 6 months for survivorship visit, and with Dr. King in 1 year, with PSA prior to each visit. This note has been electronically signed. October 14, 2024 Fernandez Marte M.D. cc: [place] [id number] [address] [facility] 10-14-2024 History of Present illness Narrative [facility] CLINICAL NOTE Radiation Oncology PATIENT NAME: Huber Peterson [facility] NO.: [id number] ATTENDING PHYSICIAN: Fernandez Marte M.D. DATE OF SERVICE: October 14, 2024 HPI: Huber Peterson is a gentleman with adenocarcinoma of the prostate, initial PSA of 13.27 ng/mL, Quique of 4+5=9, T2a. Status post I-125 seed implantation on 09/24/2024. D/N = 6-8/2; bowel movements 1 per day; no dysuria ; no hematuria; no hematochezia ; weak force of stream; he is not potent. Physical exam of the prostate deferred, however, examination of his postoperative CAT scan demonstrates adequate seed positioning without evidence for periprostatic abscess formation or urinary retention. ASSESSMENT: Expected toxicity. PLAN: Please schedule F/U with Chet Joyce CNP in 6 months for survivorship visit, and with Dr. King in 1 year, with PSA prior to each visit. This note has been electronically signed. October 14, 2024 Fernandez Marte M.D. cc: [place] [id number] [address] documented in this encounter [facility] 10-14-2024 History of Present illness Narrative Patient: Huber Peterson Date:10/14/2024 [facility] [place] Department of Radiation Oncology [facility] RADIATION ONCOLOGY POST SEED IMPLANT SIMULATION NOTE DATE OF SIMULATION: 10/14/2024 MACHINE: CT Simulator AREA: Prostate cancer s/p brachytherapy. PATIENT POSITION: Supine. CONTRAST: None PROTOCOL: None FIXATION DEVICE: None PROCEDURE: Patient was simulated on the CT scanner and CT images of the patient's pelvis were obtained. ASSESSMENT/PLAN: Patient tolerated simulation procedure well. CT images were obtained on the CT simulator for prostate post-brachytherapy seed implant planning. quality assurance representative planning for the permanent seed prostate brachytherapy procedure will commence following simulation. Electronically Signed FERNANDEZ MARTE M.D. 52:35 PM documented in this encounter [facility] 10-14-2024 Note HNO ID: [id number] Author: FERNANDEZ MARTE MD Service: Radiation Oncology Author Type: Physician Type: Progress Notes Filed: 10/14/2024 14:35 Note Text: Patient: Huber Peterson Date:10/14/2024 [facility] [place] Department of Radiation Oncology [facility] RADIATION ONCOLOGY POST SEED IMPLANT SIMULATION NOTE DATE OF SIMULATION: 10/14/2024 MACHINE: CT Simulator AREA: Prostate cancer s/p brachytherapy. PATIENT POSITION: Supine. CONTRAST: None PROTOCOL: None FIXATION DEVICE: None PROCEDURE: Patient was simulated on the CT scanner and CT images of the patient's pelvis were obtained. ASSESSMENT/PLAN: Patient tolerated simulation procedure well. CT images were obtained on the CT simulator for prostate post-brachytherapy seed implant planning. quality assurance representative planning for the permanent seed prostate brachytherapy procedure will commence following simulation. Electronically Signed FERNANDEZ MARTE M.D. 52:35 PM [facility] 10-09-2024 Telephone encounter Note RADIATION POST TREATMENT CALL BACK Today's date: October 09, 2024 Patient's final treatment on 09/24/24. Treatment site: Brachytherapy Called patient to follow-up on symptom management and follow-up appointments. Message left for Huber. Follow up appointment: Reminded patient of face to face visit on 10/14/2024 with Liberty Multani RN [facility] 10-09-2024 Miscellaneous Notes RADIATION POST TREATMENT CALL BACK Today's date: October 09, 2024 Patient's final treatment on 09/24/24. Treatment site: Brachytherapy Called patient to follow-up on symptom management and follow-up appointments. Message left for Huber. Follow up appointment: Reminded patient of face to face visit on 10/14/2024 with Liberty Multani RN documented in this encounter [facility] 09-24-2024 Note HNO ID: [id number] Author: FERNANDEZ MARTE MD Service: Radiation Oncology Author Type: Physician Type: Progress Notes Filed: 09/24/2024 10:47 Note Text: [facility] CLINICAL NOTE Radiation Oncology PATIENT NAME: Huber RIOS NO.: [id number] ATTENDING PHYSICIAN: Fernandez Marte M.D. DATE OF SERVICE: September 24, 2024 FINISH NOTE SITE: Prostate and seminal vesicles. ISOTOPE: I-125. DISEASE: Adenocarcinoma of the prostate, initial PSA of 13.27 ng/mL, Quique of 4+5=9, T2a. DELIVERED DOSE: The prostate and seminal vesicles, through an [employer] template technique, received a total of 144 Gy utilizing 148 sources with a total activity of 61.72 U. TOLERANCE: The patient tolerated the procedure well. REMARKS: Patient to follow up in about 1 month to assess acute radiation toxicity. In addition, he will receive a CT scan of the pelvis in about 1 month to assess the position of the implanted sources. Of note is that the implant required a total of 41 needles, and the prostate measured 4.2 cm long, 4.4 cm wide, and 3.3 cm tall. Survey Meter readings (mR/hr): Contact - 8.4 10 cm - 3.8 1 m - 0.3 background - 0.007 Fernandez Marte M.D. This note has been electronically signed. September 24, 2024 cc: Umesh Palomino DO 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 09-24-2024 History of Present illness Narrative HUBER PETERSON [id number] 09/24/2024 [facility] [place] Department of Radiation Oncology [facility] RADIATION ONCOLOGY BRACHYTHERAPY TREATMENT PLANNING NOTE For reasons stated in the consult note, HUBER PETERSON is a candidate for definitive radiation. Based on review and interpretation of the relevant diagnostic studies together with the exam findings, HBUER PETERSON was simulated on 09/24/2024 and the target volume to be treated as well as the critical normal structure(s) were delineated as indicated in the simulation note. I personally reviewed the TRUS and was able to create contours of the volume to be treated and the normal critical structures to be spared. In this particular case, the rectum was deemed to be a critical structure. Special consideration of this was given in light of the potential for increased toxicity if the rectum receives too much radiation dose. After participating in the treatment planning process with medical physics, I approved the best plan to deliver my prescribed course of radiation. The target tissue was planned using intraoperative pre- planning to allow for the best isodose distribution to deliver a minimum dose of 144 Gy to the prostate and seminal vesicles. The dose to normal tissue (rectum) and target tissue was confirmed upon review of the calculated dose superimposed on the TRUS images containing the target tissue and the rectum. A completed summary of this plan dated 09/24/2024 incorporated herein by reference includes dose, energy, isodose distribution and DVH. Electronically Signed Fernandez Marte M.D. / 510:49 AM documented in this encounter [facility] 09-24-2024 History of Present illness Narrative HUBER PETERSON [id number] 09/24/2024 [facility] [place] Department of Radiation Oncology [facility] RADIATION ONCOLOGY - COMPLETION NOTE PATIENT NAME: Huber Peterson [facility] NO.: [id number] ATTENDING PHYSICIAN: Fernandez Marte M.D. DATE OF SERVICE: September 24, 2024 FINISH NOTE SITE: Prostate and seminal vesicles. ISOTOPE: I-125. DISEASE: Adenocarcinoma of the prostate, initial PSA of 13.27 ng/mL, Sigel of 4+5=9, T2a. DELIVERED DOSE: The prostate and seminal vesicles, through an [employer] template technique, received a total of 144 Gy utilizing 148 sources with a total activity of 61.72 U. TOLERANCE: The patient tolerated the procedure well. REMARKS: Patient to follow up in about 1 month to assess acute radiation toxicity. In addition, he will receive a CT scan of the pelvis in about 1 month to assess the position of the implanted sources. Of note is that the implant required a total of 41 needles, and the prostate measured 4.2 cm long, 4.4 cm wide, and 3.3 cm tall. Survey Meter readings (mR/hr): Contact - 8.4 10 cm - 3.8 1 m - 0.3 background - 0.007 Fernandez Marte M.D. This note has been electronically signed. September 24, 2024 cc: Umesh Palomino DO documented in this encounter [facility] 09-24-2024 History of Present illness Narrative HUBER PETERSON [id number] 09/24/2024 [facility] [place] Department of Radiation Oncology [facility] RADIATION ONCOLOGY SIMULATION NOTE DATE OF SIMULATION: 09/24/2024 MACHINE: [employer] Diagnosis: C61 (Prostate Gland) AREA:prostate and seminal vesicles PATIENT POSITION: Supine. CONTRAST: None PROTOCOL: None CONCURRENT THERAPY: None FIXATION DEVICE: [facility] UTS Stabilization device by [employer] PROCEDURE: Patient was simulated in the OR in exaggerated dorsal lithotomy position. Serial images of the prostate and seminal vesicles were taken using TRUS. Color flow Doppler UTS was also reviewed. These images were imported into a [employer] treatment planning system where a plan was generated. ASSESSMENT/PLAN: Patient tolerated simulation procedure well. Electronically Signed Fernandez Marte M.D. / 0:48 AM documented in this encounter [facility] 09-24-2024 Note HNO ID: [id number] Author: FERNANDEZ MARTE MD Service: Radiation Oncology Author Type: Physician Type: Progress Notes Filed: 09/24/2024 10:48 Note Text: HUBER PETERSON [id number] 09/24/2024 [facility] [place] Department of Radiation Oncology [facility] RADIATION ONCOLOGY - COMPLETION NOTE PATIENT NAME: Huber [facility] NO.: [id number] ATTENDING PHYSICIAN: Fernandez Marte M.D. DATE OF SERVICE: September 24, 2024 FINISH NOTE SITE: Prostate and seminal vesicles. ISOTOPE: I-125. DISEASE: Adenocarcinoma of the prostate, initial PSA of 13.27 ng/mL, Quique of 4+5=9, T2a. DELIVERED DOSE: The prostate and seminal vesicles, through an [employer] template technique, received a total of 144 Gy utilizing 148 sources with a total activity of 61.72 U. TOLERANCE: The patient tolerated the procedure well. REMARKS: Patient to follow up in about 1 month to assess acute radiation toxicity. In addition, he will receive a CT scan of the pelvis in about 1 month to assess the position of the implanted sources. Of note is that the implant required a total of 41 needles, and the prostate measured 4.2 cm long, 4.4 cm wide, and 3.3 cm tall. Survey Meter readings (mR/hr): Contact - 8.4 10 cm - 3.8 1 m - 0.3 background - 0.007 Fernandez Marte M.D. This note has been electronically signed. September 24, 2024 cc: Umesh Palomino DO [facility] 09-24-2024 Note HNO ID: [id number] Author: FERNANDEZ MARTE MD Service: Radiation Oncology Author Type: Physician Type: Progress Notes Filed: 09/24/2024 10:48 Note Text: UHBER PETERSON [id number] 09/24/2024 [facility] [place] Department of Radiation Oncology [facility] RADIATION ONCOLOGY SIMULATION NOTE DATE OF SIMULATION: 09/24/2024 MACHINE: [employer] Diagnosis: C61 (Prostate Gland) AREA:prostate and seminal vesicles PATIENT POSITION: Supine. CONTRAST: None PROTOCOL: None CONCURRENT THERAPY: None FIXATION DEVICE: [employer] UTS Stabilization device by [employer]. PROCEDURE: Patient was simulated in the OR in exaggerated dorsal lithotomy position. Serial images of the prostate and seminal vesicles were taken using TRUS. Color flow Doppler UTS was also reviewed. These images were imported into a [employer] treatment planning system where a plan was generated. ASSESSMENT/PLAN: Patient tolerated simulation procedure well. Electronically Signed Fernandez Marte M.D. / 0:48 AM [facility] 09-24-2024 Note HNO ID: [id number] Author: FERNANDEZ MARTE MD Service: Radiation Oncology Author Type: Physician Type: Progress Notes Filed: 09/24/2024 10:49 Note Text: HUBER PETERSON [id number] 09/24/2024 [facility] [place] Department of Radiation Oncology [facility] RADIATION ONCOLOGY BRACHYTHERAPY TREATMENT PLANNING NOTE For reasons stated in the consult note, HUBRE PETERSON is a candidate for definitive radiation. Based on review and interpretation of the relevant diagnostic studies together with the exam findings, HUBER PETERSON was simulated on 09/24/2024 and the target volume to be treated as well as the critical normal structure(s) were delineated as indicated in the simulation note. I personally reviewed the TRUS and was able to create contours of the volume to be treated and the normal critical structures to be spared. In this particular case, the rectum was deemed to be a critical structure. Special consideration of this was given in light of the potential for increased toxicity if the rectum receives too much radiation dose. After participating in the treatment planning process with medical physics, I approved the best plan to deliver my prescribed course of radiation. The target tissue was planned using intraoperative pre- planning to allow for the best isodose distribution to deliver a minimum dose of 144 Gy to the prostate and seminal vesicles. The dose to normal tissue (rectum) and target tissue was confirmed upon review of the calculated dose superimposed on the TRUS images containing the target tissue and the rectum. A completed summary of this plan dated 09/24/2024 incorporated herein by reference includes dose, energy, isodose distribution and DVH. Electronically Signed Fernandez Marte M.D. / 510:49 AM [facility] 09-23-2024 Telephone encounter Note MATTY left. Notified patient of medications sent to preferred pharmacy: [facility]. Educated patient to begin both Ciprofloxacin (Cipro) and Tamsulosin (Flomax) one day following their procedure. Patient is aware they will obtain procedure time from [facility]. Patient will obtain further instructions from care team following their procedure. Frances Velez RN [facility] 09-23-2024 Miscellaneous Notes MATTY left. Notified patient of medications sent to preferred pharmacy: [facility]. Educated patient to begin both Ciprofloxacin (Cipro) and Tamsulosin (Flomax) one day following their procedure. Patient is aware they will obtain procedure time from [facility]. Patient will obtain further instructions from care team following their procedure. Frances Velez RN documented in this encounter [facility] 09-18-2024 Telephone encounter Note Huber Peterson is scheduled for brachytherapy on 09/24/2024. He saw [facility] on 09/05/2024. Called Huber Peterson. He reports that he was having some coughing prior to [facility] appointment, but I got sicker later on 09/05/2024. He had chest x-ray on 09/05/2024 and again at [facility] on 09/14/2024. Denies associated fever, chest pain, and shortness of breath. Says that has had similar symptoms and was admitted to [facility] on 09/14/2024 because SPO2 was too low. Huber Peterson did not have nasal swab in ER for flu and COVID but says that did with negative results. Asked Huber Peterson to reach out if symptoms worsen prior to 09/24/2024. Otherwise, he will be evaluated by anesthesia team on day of surgery. Yana Braxton APRN.HOSPICE AIDE [facility] Work Phone: 09-18-2024 Miscellaneous Notes Huber Peterson is scheduled for brachytherapy on 09/24/2024. He saw [facility] on 09/05/2024. Called Huber Peterson. He reports that he was having some coughing prior to [facility] appointment, but I got sicker later on 09/05/2024. He had chest x-ray on 09/05/2024 and again at [facility] on 09/14/2024. Denies associated fever, chest pain, and shortness of breath. Says that has had similar symptoms and was admitted to [facility] on 09/14/2024 because SPO2 was too low. Huber Peterson did not have nasal swab in ER for flu and COVID but says that did with negative results. Asked Huber Peterson to reach out if symptoms worsen prior to 09/24/2024. Otherwise, he will be evaluated by anesthesia team on day of surgery. Yana Braxton APRN.AYUSH ----- Message from Reyna Duggan MD sent at 09/18/2024 12:36 PM EST ----- Regarding: RE: nagging cough / Contact: Likely not, but anesthesia will see on day of surgery ----- Message ----- From: Nancy Boss Sent: 09/18/2024 10:02 AM EST To: Yana Braxton APRN.CNP; Reyna Duggan MD Subject: nagging cough / Pt is calling. He has a nagging cough from bronchitis does his surgery need to be rescheduled? Please advise documented in this encounter [facility] 09-18-2024 Telephone encounter Note ----- Message from Reyna Duggan MD sent at 09/18/2024 12:36 PM EST ----- Regarding: RE: nagging cough / Contact: Likely not, but anesthesia will see on day of surgery ----- Message ----- From: Nancy Boss Sent: 09/18/2024 10:02 AM EST To: Yana Braxton APRN.HOSPICE AIDE; Reyna Duggan MD Subject: nagging cough / Pt is calling. He has a nagging cough from bronchitis does his surgery need to be rescheduled? Please advise [facility] 09-14-2024 Hospital Discharge instructions Patient Education 09/14/2024 13:27:51 Bronchitis, Antibiotic Treatment (Adult) Bronchitis, Antibiotic Treatment (Adult) Bronchitis is an infection of the air passages (bronchial tubes) in your lungs. It often occurs when you have a cold. This illness is contagious during the first few days and is spread through the air by coughing and sneezing, or by direct contact (touching the sick person and then touching your own eyes, nose, or mouth). Symptoms of bronchitis include cough with mucus (phlegm) and low-grade fever. Bronchitis usually lasts 7 to 14 days. Mild cases can be treated with simple home remedies. More severe infection is treated with an antibiotic. Home care Follow these guidelines when caring for yourself at home: If your symptoms are severe, rest at home for the first 2 to 3 days. When you go back to your usual activities, don't let yourself get too tired. Don't smoke. Also stay away from secondhand smoke. You may use geav-sak-xbvhagp medicines to control fever or pain, unless another medicine was prescribed. If you have chronic liver or kidney disease or have ever had a stomach ulcer or gastrointestinal bleeding, talk with your healthcare provider before using these medicines. Also talk to your provider if you are taking medicine to prevent blood clots. Aspirin should never be given to anyone younger than 18 who is ill with a viral infection or fever. It may cause severe liver or brain damage. Your appetite may be low, so a light diet is fine. Stay well hydrated by drinking 6 to 8 glasses of fluids per day. This includes water, soft drinks, sports drinks, juices, tea, or soup. Extra fluids will help loosen mucus in your nose and lungs. Lorf-sho-jvnpnrj cough, cold, and sore-throat medicines will not shorten the length of the illness, but they may be helpful to reduce your symptoms. Don't use decongestants if you have high blood pressure. Finish all antibiotic medicine. Do this even if you are feeling better after only a few days. Follow-up care Follow up with your healthcare provider, or as advised. If you had an X-ray or ECG (electrocardiogram), a specialist will review it. You will be told of any new test results that may affect your care. If you are age 65 or older, if you smoke, or if you have a chronic lung disease or condition that affects your immune system, ask your healthcare provider about getting a pneumococcal vaccine and a yearly flu shot (influenza vaccine). When to seek medical advice Call your healthcare provider right away if any of these occur: Fever of 100.4 F (38 C) or higher, or as directed by your healthcare provider Coughing up more sputum Weakness, drowsiness, headache, facial pain, ear pain, or a stiff neck Call 911 Call 911 if any of these occur. Coughing up blood Weakness, drowsiness, headache, or stiff neck that get worse Trouble breathing, wheezing, or pain with breathing [id number] [employer]. [address] [place] [address]. All rights reserved. This information is not intended as a substitute for professional medical care. Always follow your healthcare professional's instructions. Follow Up Care 09/14/2024 10:51:36 With:[facility] Address: [address] [address]- When:2-4 days [facility] 09-14-2024 Note Discharge Instructions Thank you for allowing [facility] to assist you with your healthcare needs. The following is important discharge information regarding your hospital visit. Diagnosis from Today's Visit Bronchitis What to Do Next Instructions from Your Care Team No qualifying data available. Post Acute Orders No qualifying data available. You Need to Schedule the Following Appointments Follow Up with [facility] When:Within 2-4 days [facility] [place] [address] [address]- Allergies Statins Medications Please ask your primary doctor or pharmacist before taking any other medication not listed, including over the counter drugs, herbal medications, vitamins and or supplements as they may interact with your home medications. What How Much When Instructions Last Dose Unchanged diltiazem (Diltiazem Hydrochloride ER 120 mg/ 24 hours oral capsule, extended release) 1 cap by mouth Two (2) times a day Unchanged flecainide (flecainide 50 mg oral tablet) 1 tab(s) by mouth Every 12 hours as needed for arrythmias Unchanged glipiZIDE (glipiZIDE 5 mg oral tablet) 1 tab(s) by mouth Once a day Unchanged magnesium oxide (magnesium oxide 420 mg oral tablet) 1 tab(s) by mouth Two (2) times a day Unchanged metFORMIN (metFORMIN 1000 mg oral tablet) 1 tab(s) by mouth Two (2) times a day Unchanged omega-3 polyunsaturated fatty acids (omega-3 polyunsaturated fatty acids 350 mg oral capsule) 1 cap by mouth Two (2) times a day Unchanged potassium chloride (potassium chloride 20 mEq oral tablet, extended release) 0.5 tab(s) by mouth Once a day Unchanged rivaroxaban (Xarelto 20 mg oral tablet) 1 tab(s) by mouth With supper Please take this list to your next doctor s visit. Bring all medications you take, including over the counter medications, herbals and other supplements with you to your doctor s visit. Patients and families are reminded to discard old lists and to update any records with all medication providers or retail pharmacies. Education Materials Bronchitis, Antibiotic Treatment (Adult) Bronchitis is an infection of the air passages (bronchial tubes) in your lungs. It often occurs when you have a cold. This illness is contagious during the first few days and is spread through the air by coughing and sneezing, or by direct contact (touching the sick person and then touching your own eyes, nose, or mouth). Symptoms of bronchitis include cough with mucus (phlegm) and low-grade fever. Bronchitis usually lasts 7 to 14 days. Mild cases can be treated with simple home remedies. More severe infection is treated with an antibiotic. Home care Follow these guidelines when caring for yourself at home: If your symptoms are severe, rest at home for the first 2 to 3 days. When you go back to your usual activities, don't let yourself get too tired. Don't smoke. Also stay away from secondhand smoke. You may use rybo-hsm-ekvgukt medicines to control fever or pain, unless another medicine was prescribed. If you have chronic liver or kidney disease or have ever had a stomach ulcer or gastrointestinal bleeding, talk with your healthcare provider before using these medicines. Also talk to your provider if you are taking medicine to prevent blood clots. Aspirin should never be given to anyone younger than 18 who is ill with a viral infection or fever. It may cause severe liver or brain damage. Your appetite may be low, so a light diet is fine. Stay well hydrated by drinking 6 to 8 glasses of fluids per day. This includes water, soft drinks, sports drinks, juices, tea, or soup. Extra fluids will help loosen mucus in your nose and lungs. Kmre-uqj-aqvdxdm cough, cold, and sore-throat medicines will not shorten the length of the illness, but they may be helpful to reduce your symptoms. Don't use decongestants if you have high blood pressure. Finish all antibiotic medicine. Do this even if you are feeling better after only a few days. Follow-up care Follow up with your healthcare provider, or as advised. If you had an X-ray or ECG (electrocardiogram), a specialist will review it. You will be told of any new test results that may affect your care. If you are age 65 or older, if you smoke, or if you have a chronic lung disease or condition that affects your immune system, ask your healthcare provider about getting a pneumococcal vaccine and a yearly flu shot (influenza vaccine). When to seek medical advice Call your healthcare provider right away if any of these occur: Fever of 100.4 F (38 C) or higher, or as directed by your healthcare provider Coughing up more sputum Weakness, drowsiness, headache, facial pain, ear pain, or a stiff neck Call 911 Call 911 if any of these occur. Coughing up blood Weakness, drowsiness, headache, or stiff neck that get worse Trouble breathing, wheezing, or pain with breathing [id number] [employer]. [address] [place] [address], [place] [address]. All rights reserved. This information is not intended as a substitute for professional medical care. Always follow your healthcare professional's instructions. Additional Information VACCINATE! IT SAVES LIVES! Members of the community who have not yet received the COVID-19 vaccine and would like to receive it can visit one of [facility] vaccine clinics. There are many vaccine clinic locations within the [facility]. For locations and available times, please visit [email or web address] [email or web address] It is important to note that some COVID mobile vaccine clinics are held outdoors and may be canceled in rainy or stormy conditions. To learn more about pediatric vaccinations (ages 5-11), we invite you to visit the [facility] webpage. https://[email or web address]/pag es/9435-Zglrl-Txucmvjvbhd-Frequent as-Bsmuq-Psrelkkaw.html To learn more about the COVID-19 vaccine, we invite you to visit the CDC website for a list of frequently asked questions. https://www.cdc.gov/coronavirus/20 19-ncov/vaccines/faq.html [facility] Patient Portal Access Instructions: Stay connected with your healthcare team and access your personal medical information anytime with the [facility] Patient Portal. If you would like a full copy of your medical records please contact the [facility] Medical Records Department Monday through Monday between 8a.m. and 4:30p.m. Please follow the directions below to access the portal: 1.Access the email account you provided upon registration to the hospital.2.Look for an invitation email from [facility].3.Open the email and access the invitation link: Accept Invitation to [facility].Fill in the required arnett to create your account. Sign into [email or web address] with your username and password that you created in the above steps to stay up to date. You can then view a summary of results, a summary of your visits, and the ability to download your summaries to your computer or send the information securely to a physician. Remember that your healthcare information is confidential, so carefully consider who you will allow to register on the [facility] Patient Portal for access to your information. You can also access the [employer] Patient Portal on the [employer] whit. Simply click on Health Records under Health Data and then click on the [employer] logo. HOW TO SAFELY DISPOSE OF PRESCRIPTION MEDICATIONS Please use one of the following methods to safely dispose of your unused medications. 1.Use a drug disposal kit: the drug disposal pouch allows you to safely discard your old and unused drugs. Ask your nurse to give you one when you are discharged.2.Visit a local take-back location: Many local pharmacies and police departments have programs that collect old and unwanted prescription drugs. Call your local pharmacy or go to http://[employer].Vertro/4Q3Be7f to find one close to you.3.Make use of household items: Use cat litter or old coffee grounds to dispose medications if other options are not available. Mix your drugs with these household products, seal them in an airtight container and throw it into the garbage. Call [facility]: [phone] to be sure your drugs can be disposed of in this way. Some medicines may require a different approach.4.Never flush your medications down the toilet. IF YOU HAVE BEEN PRESCRIBED AN OPIOIDS FOR PAIN If you have been prescribed an opioid (such as hydrocodone, oxycodone or morphine), it is critical to understand the possible side effects and risks of opioid pain medications. Even when taken as directed, opioids can have several side effects including: Tolerance, meaning you might need to take more of a medication for the same pain relief. Nausea, vomiting and/or constipation. Sleepiness, dizziness, dry mouth, confusion, depression or itching. Physical dependence, meaning you have withdrawal symptoms when a medication is stopped ? this can develop within a few days. KNOW YOUR RESPONSIBILITIES It is important to know exactly how much and how often to take the opioid pain medications you are prescribed. Never take opioids in higher amounts or more often than prescribed. Do not combine opioids with alcohol or other drugs that cause drowsiness, such as benzodiazepines, also known as benzos, including diazepam and alprazolam, muscle relaxants or sleep aids. Never sell or share prescription opioids. This is illegal. Store opioids in a secure place and out of reach of others (including children, family, friends and visitors). The last page(s) of this document has been signed and retained as a CHART COPY Signatures Patient Education Materials Bronchitis, Antibiotic Treatment (Adult) Medication Leaflets My discharge plan and instructions have been reviewed and explained to me and I,HUBER PETERSON understand my current condition and have read and understand these discharge instructions. I have received a written copy of the plan/instructions. If I have questions, I am aware that I should contact my doctor. 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 Multiple calcified granulomas are again noted. No visible airspace disease or pleural fluid. IMPRESSION: No visible acute process. Interpreted by: Isha Mccullough MD Preliminary Report By: Isha Mccullough MD Electronically signed By Isha Mccullough MD Dictated Date: 09/14/2024 12:46:19 PM Prelim Date: 09/14/2024 12:50:45 PM Sign Date: 09/14/2024 12:50:45 PM Ordering Provider: DANIELA KATZ [facility]02-06-2025 History of Present illness Narrative * Sara Millan, RT(R) - 09/05/2024 10:30 AM EST Radiology Service Progress Note PATIENT NAME: Huber Peterson DATE OF SERVICE: September 05, 2024 TIME: 11:42 AM PATIENT IDENTITY VERIFICATION COMPLETED USING TWO (2) IDENTIFIERS: Name and Date of confirmedby patient verbally. FALL SCREENING: Has the patient had 2 falls in the last year or 1 fall with injury or currently using an Ambulatory Assistive Device (Walker, Cane, Wheelchair, Crutches, etc.)? No PATIENT GENDER DATA: Assigned male at PATIENT RELEVANT IMPLANT DATA REVIEWED: Not Applicable PATIENT PRESENTS WITH AN IMPLANTABLE OR ATTACHED TELEVISION SCRIPT WRITER: No RADIOLOGY DEPARTMENT: General X-ray: Exam(s) Completed: Chest X-Ray PERIPHERAL IV DATA: Not applicable SIGNED BY: RT Cali(R) September 05, 2024 11:42 AM documented [facility] NoteHNO ID: [id number] Author: SARA MILLAN RT(R) Service: ? Author Type: Technologist Type: Progress Notes Filed: 09/05/2024 11:42 Note Text: Radiology Service Progress Note PATIENT NAME: Huber Peterson DATE OF SERVICE: September 05, 2024 TIME: 11:42 AM PATIENT IDENTITY VERIFICATION COMPLETED USING TWO (2) IDENTIFIERS: Name and Date of confirmed by patient verbally. FALL SCREENING: Has the patient had 2 falls in the last year or 1 fall with injury or currently using an Ambulatory Assistive Device (Walker, Cane, Wheelchair, Crutches, etc.)? No PATIENT GENDER DATA: Assigned male at PATIENT RELEVANT IMPLANT DATA REVIEWED: Not Applicable PATIENT PRESENTS WITH AN IMPLANTABLE OR ATTACHED TELEVISION SCRIPT WRITER: No RADIOLOGY DEPARTMENT: General X-ray: Exam(s) Completed: Chest X-Ray PERIPHERAL IV DATA: Not applicable SIGNED BY: RT Cali(R) September 05, 2024 11:42 [facility]02-06-2025 Instructions* Patient Instructions* Tatiana Carrero APRN.HOSPICE AIDE - 09/05/2024 9:43 AM EST Images from the original note were not included. [facility] PATIENT PREOPERATIVE INSTRUCTIONS Fernandez Marte MD has scheduled you for your procedure at this surgery center: [facility]: [phone] -- [address], [place] [address]. Please read below carefully for your personalized instructions. Dietary Restrictions: - No solid food after midnight. - You may have 12 ounces of clear liquids (water, clear juices such as apple juice or gatorade, carbonated beverages, clear tea, black coffee, jello) until 2 hours before scheduled arrival at facility. No red/purple coloring and no creamer/sugar Medications: Unless instructed differently below, stay on all of your medications until your surgery. If you start any new medications after today's visit, please contact your surgeon. Pre-Surgery Med Instructions Medication Instructions telmisartan (MICARDIS) 40 mg tablet Take the day of surgery with a small sip of water insulin NPH human isophane (NOVOLIN N FLEXPEN SUBCUTANEOUS) See below omega-3 fatty acids (SUPER OMEGA-3 ORAL) Stop 7 days before surgery glipiZIDE (GLUCOTROL) 5 mg tablet Do not take the day of surgery aspirin, enteric coated (ASPIRIN, ENTERIC COATED) 81 mg EC tablet Stop 7 days before surgery metFORMIN (GLUCOPHAGE) 1,000 mg tablet Do not take the day of surgery Is Patient Diabetic:Yes Preoperative Instructions for Patient's with Diabetes Mellitus/ Prediabetes Oral Medication Instructions: DO NOT TAKE THE MORNING OF SURGERY: Metformin (GLUCOPHAGE XR) Tradjenta (linagliptin) Actos/Pioglitazone Amaryl/Glimepiride Glucotrol/Glipizide Januvia/Sitagliptin Glyburide Prandin/Repaglinide Starlix/Nateglinide Symlin/Pramlintide Dulaglutide/Trulicity Exenatide (Bydureon/Byetta) Semaglutide (Ozempic, Rybelsus) Liraglutide (Victoza/Saxenda) Lixsenstide (Adlyxin) please HOLD 3 DAYS PRIOR TO SURGERY: Canagliflozin/Invokana Dapagliflozin/Farxiga Empagliflozin/Jardiance please HOLD 4 DAYS PRIOR TO SURGERY: Ertugliflozin/Steglatro Injectable Medication Instructions: please HOLD 7 DAYS PRIOR TO SURGERY: Tirzepatide (Mounjaro)(Zepbound) Dulaglutide (Trulicity) Exenatide (Bydureon/Byetta) Semaglutide (Ozempic)/(WEGOVY) (Rybelsus) Laraglutide (Victoza/Saxenda) Lixsenstide (Adlyxin) Insulin Medication Instructions: For the following medications: Afrezza, Novolog, Regular Insulin, Apidra , Humalog DO NOT TAKE THE MORNING OF SURGERY: Please take the following medications at your usual dose the day before surgery. For the following medications: NPH Insulin, Basaglar, Lantus/glargline, Levemir, Rougeo, Lispro andTresiba IF YOU TAKE IN THE EVENING take 75% of your usual dose the evening before surgery. If not possible to take 75% of your usual dose then take your full dose. IF YOU TAKE IN THE MORNING if blood glucose was > 200 to take half dose of your insulin if blood glucose was < 200 do not take your morning dose For Insulin 70/30 or 75/25 - check fasting blood glucose the Day of Surgery Blood if blood glucose was > 200 to take half dose of your insulin if blood glucose was < 200 do not take your morning dose Insulin Pump: Continue the same Basal Rate If you take any medications for erectile dysfunction-Cialis (Tadalafil), Levitra, Staxyn (Vardenafil) Viagra (Sildenenafil please do not take these for 48 hours before surgery. If you start any new medications after today's visit, please contact the surgeon's office. If you are currently using a xveh-dyj-vwws injectable or oral medication for diabetes or weight loss such as Dulaglutide (Trulicity), Exenatide (Byetta, Bydureon), Liraglutide (Victoza, Saxenda), Semaglutide (Ozempic, Wegovy, Rybelsus), or Tirzepatide (Mounjaro), the medicine should be stopped at least 7 days before surgery. These medicines can cause food to remain in your stomach for a very longtime and increase the risks from surgery and anesthesia. Not stopping the medication for a long enough time may result in your surgery being rescheduled. Blood Thinning Medications: - Stop NSAIDS (Ibuprofen, Advil, Aleve, Motrin, Celebrex, Mobic, etc.) 7 days before surgery, as directed by your surgeon. - Stop Aspirin 7 days before surgery, as directed by your surgeon. - Stop ALL herbal and dietary supplements 7 days before surgery. - You may take Tylenol (Acetaminophen) or any of your pain medications that do not contain aspirin or NSAIDS as needed. Important Reminders: - Candy, mints, and tobacco products are NOT permitted the morning of surgery. - Hearing aids, dentures and glasses may be worn the morning of surgery. - NO jewelry, body piercings, makeup, hairpins or contacts are to be worn the day of surgery. If you develop symptoms such as a fever, cold, or flu, or have other changes to your health within TWO DAYS of scheduled surgery or the morning of surgery, please contact the surgery center above. Personal Belongings: -Please have photo ID and insurance cards. -If you do not have a copy of advance directives on file with us, please bring a copy with you on the day of surgery. - Leave ALL valuables and money at home or with family members. - Please bring high-quality footwear, such as sneakers, to the hospital for ambulating post-surgery. For Outpatient Procedures: - YOU MUST HAVE A RESPONSIBLE CLEAT FEEDER TAKE YOU HOME. A PLATE FURNACE OPERATOR OR BOILER TUBE BLOWER CANNOT BE MADE A RESPONSIBLE CLEAT FEEDER. - We recommend that a responsible person stays with you overnight to take care of you. - You cannot stay in a hotel alone after outpatient surgery. You will not be permitted to have yoursurgery, if you do not have someone to take care of you. Arrival Time for Surgery: - The Surgery Center or hospital where you are having surgery will call the afternoon before surgery (or Monday for Monday surgery) with a scheduled arrival time. - If you have not heard by 4 pm, please contact the surgery center above. Please be aware that emergency situations arise, which may delay or change your surgical time. If this happens, we will notify you as soon as possible and regret any inconvenience. If you already have an Advance Directive, please fax a copy to [phone] or email to for it to be added to your chart. If you do not have an Advance Directive, you can find the appropriate form and more information at [email or web address]. We recommend that youcomplete the Advance Directive form found on the website and bring it with you the day of your surgery. It can be witnessed and scanned into your chart that day. Tatiana Carrero APRN.AYUSH documented in this encounterProtest[facility]02-[facility] History and physical note * Tatiana Carrero APRN.CNP - 09/05/2024 9:38 AM EST Images from the original note were not included. [facility]est[facility] HISTORY AND PHYSICAL EXAMINATION SERVICE DATE: 09/05/2024 SERVICE TIME: 10:27 AM PRIMARY CARE PHYSICIAN: Umesh Palomino DO Assessment Patient has the following medical conditions which may affect emile-operative course: AF (paroxysmal atrial fibrillation) (HCC) Assessment: s/p ablation 2015, daily ASA, following Dr. Khanh Starr, has pending f/u appt 10/2024, last echo 2014 on file EF 60%, normal systolic diastolic fx and valvular function, scanned into [employer] Essential hypertension Assessment: controlled on rx Last 14 BP Last 14 Encounter BP Readings: Date: BP: 09/05/2024 152/76 07/22/2024 200/81[MD aware[ 03/13/2023 150/84 10/08/2021 170/90 10/16/2020 164/84 Type 2 diabetes mellitus without complication (HCC) Assessment: IDDM and oral agent, new A1c pending Sleep apnea Assessment: non-compliant with CPAP, s/p uvelectomy BMI 30.0-30.9,adult Assessment: Body mass index is 30.78 kg/m . Incomplete RBBB Assessment: per EKG, asymptomatic BPH (benign prostatic hyperplasia) Assessment: no tx, reports hesitancy in the AM Recent URI Assessment: abnormal lung sounds in bilateral bases right>left, CXR pending. Pt states cough several weeks, states feels like he is slowly improving, wet/deep cough during exam, pulse ox 95% on RA Garcia Activity Status Index: METS: Climb a flight of stairs or walk up a hill (5.50 METs) DASI Score: 5.5 Patient denies any chest pain or undue shortness of breath with the above physical activity. Clinical Frailty Scale: 3. Well, with treated comorbid disease STOP-Bang Score: Snores loudly Has been observed to stop breathing or choking/gasping during sleep Has or is being treated for high blood pressure Patient over 50 years old Has a large neck Male patient Denies feeling tired, fatigued, or sleepy during the daytime BMI less than or equal to 35 kg/m^2 STOP-Bang Score: 6 [id number] Score: Age: 65-74 Sex: male CHF history: No Hypertension history: Yes Stroke/TIA/thromboembolism history: No Vascular disease history: No Diabetes history: Yes [id number] Score: 3 ARISCAT Score: Age: 51-80 Preoperative SpO2: 91-95% Respiratory infection in the last month: No Preoperative anemia: No Surgical incision: peripheral Duration of surgery: <2 hrs Emergency procedure: No ARISCAT Score: 11 ANESTHESIA FINDINGS: Intubation History: No history of difficult intubation Significant Anesthesia Considerations: none Airway History: No history of difficult airway I - PHYSICAL EVALUATION AIRWAY Patient intubated: No. Tracheostomy tube not present Mallampati: II. TM distance: >3 FB. Neck ROM: full ROM without neurological symptoms. Mouth opening: adequate. Short neck: no. Thick neck: yes Jackson present: yes Lip Bite Test: I Microretrognathia/Micronagthia/Recessed Chin: No DENTAL Dental findings: teeth intact. II - ANESTHESIA PLAN Anesthetic Plan: other Beta Gillian Monitoring Plan Post Procedure Analgesic Plan Prepared for Surgery: optimally prepared for surgery, pending [see comment]. Labs, EKG and CXR CONSULTS: Patient does not require consults for optimization at this time Planned Anesthetic: other anesthesia choice The Following Tests/Procedures Have Been Initiated: Orders Placed This Encounter XR CHEST 2V FRONTAL/LAT Standing Status: Future Number of Occurrences: 1 Standing Expiration Date: 10/05/2025 >CBC + AUTO DIFF Standing Status: Future Number of Occurrences: 1 Standing Expiration Date: 12/05/2024 >CMP Standing Status: Future Number of Occurrences: 1 Standing Expiration Date: 12/05/2024 PSA/Prostate Specific Antigen Screening Standing Status: Future Number of Occurrences: 1 Standing Expiration Date: 12/05/2024 HGB A1C Standing Status: Future Number of Occurrences: 1 Standing Expiration Date: 12/05/2024 ECG COMPLETE Standing Status: Future Standing Expiration Date: 09/05/2025 REASON FOR VISIT: Huber Peterson is a 74 year old male who is scheduled for Procedure(s): INSERTION TRANSPERINEAL NEEDLES OR CATHETERS PROSTATE FOR INTERSTITIAL RADIOELEMENT APPLICATION (N/A) ULTRASOUND TRANSRECTAL PROSTATE (N/A) CYSTOSCOPY FLEXIBLE (N/A) APPLICATION INTERSTITIAL RADIATION SOURCE COMPLEX (N/A) ULTRASONIC GUIDANCE FOR INTERSTITIAL RADIO ELEMENT APPLICATION (N/A) at the request of Dr. Fernandez Marte for consultation. My final recommendation will be communicated back to the requesting physicianby way of shared medical record or letter. Subjective The patient has the following: COVID-19 Immunization Status Overdue - Covid-19 Vaccine ( season) Never done No completion, postpone, frequency change, or communication history exists for this topic. CHIEF COMPLAINT: Pre-op exam HPI: Huber Peterson is a 74 year old seen for PAC due to scheduled above surgery because of prostate CA. 07/22/2024, Dr. Fernandez Marte HISTORY OF PRESENT ILLNESS: Mr. Peterson is a 74 year old and presents with spouse. Newly diagnosed CaP. NCCN CRITERIA VALUES Clinical Stage (AJCC 7th Edition) T2a, N0, M0 = stage IIIC [any T, N0, M0, any PSA, GG 5] (AJCC 8thed.) Previous PSA Score(s) (PSA Should Be Within 3 Months of Biopsy) Outside Result: 13.27 ng/mL Result Date: April 30, 2024 Date of Biopsy June 04, 2024 Type of Biopsy TRUS Random Biopsy Sigel/ISUP Group 4 + 5 = 9 (Grade Group 5) Total # of Biopsy Cores 6 Total # of Positive Biopsy Cores 3 Greatest % Cancer in Any Single Core 90% PSA Density Not Available 2016 NCCN Risk Group High Risk Group PERTINENT HISTORY: Urinary frequency (D/N): 6/0 Dysuria: No Incontinence: No Hematuria: No Baseline Urinary Function: 1- No pads AUA QUESTIONNAIRE (Symptoms Prior to Biopsy): Incomplete Emptyin (less than 1 time in 5) Frequency (within 2 hours of previous void): 0 (not at all) Intermittency: 0 (not at all) Urgency (difficulty postponing urination): 0 (not at all) Weak Stream: 1 (less than 1 time in 5) Strainin (less than 1 time in 5) Nocturia: 0 (none) - Total AUA Score: 3 BASELINE ERECTILE FUNCTION: 4- Diminished but unsatisfactory for intercourse PREVIOUS TREATMENTS: None TESTING TO DATE: PET Scan Results: Prostate-only uptake, no evidence of metastases. GENOMIC TESTING: None REVIEW OF SYSTEMS: General: No weight loss, malaise or fevers. Neurological: No history of TIA's, stroke, PATENT LEATHER SORTER tumor, impaired sensorium, hemiplegia, paraplegia orquadraplegia. No neurological symptoms or problems. Respiratory: Positive for: URI < 2 weeks, obstructive sleep apnea and CPAP/BiPAP noncompliant. Negative for: asthma, COPD, current cough, dyspnea, pneumonia within 6 weeks and tobacco use. Cardiovascular: Positive for: anticoagulation therapy (ASA), atrial fibrillation (paroxymal, s/p ablation), hypertension and murmur/valvular heart disease Negative for: abdominal aortic aneurysm, AICD/PPM, angina, arrhythmia, CAD, chest pain, CHF, congenital heart defect, DVT/PE, hyperlipidemia, recent UT, PTCA, PVD, open heart surgery and valve surgery. GI: No history of GI symptoms or problems. No history of esophageal varices, recent ascites, or ETOH greater than 2 drinks per day. : Positive for: BPH and hesitancy. Negative for: nephrolithiasis, renal failure and urinary tract infection. Endocrine: Positive for: diabetes mellitus. Patient's diabetes mellitus is controlled by insulin and oral agents. Negative for: hypothyroidism. Hematology: Positive for: chronic anti-coagulation/platelet meds. Patient is on anti- coagulation/platelet medication(s): Aspirin. Negative for: anemia, bruises/bleeds easily and transfusion of at least 4 units within 72 hours prior to surgery. Oncology: See HPI. Psych: No history of psychiatric symptoms or problems. Musculoskeletal: Negative for joint pain or swelling, back pain or muscle pain. Skin: Negative for lesions, rash and itching. Implanted Devices: No implanted devices. 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) use of anticoagulants on Xarelto 20mg Nonrheumatic atrial fibrillation (HCC) Personal history of other diseases of the circulatory system Prostate cancer (HCC) Sleep apnea Status post cryoablation 10/29/2015 successful isolation of all four pulmonary veins PAST SURGICAL HISTORY Procedure Laterality Date LEG SURGERY HX 10/2017 leg fx PAST SURGICAL HISTORY OF surgery for sleep apnea TONSILLECTOMY HX FAMILY HISTORY Problem Relation Age of Onset Cancer Mother Heart Attack Father 66 other (arrhythmias) Sister other (rheumatic fever) Brother Social History Tobacco Use Smoking status: Never Smokeless tobacco: Never Vaping Use Vaping status: Never Used Substance Use Topics Alcohol use: Never Drug use: Never Prior to Admission medications as of 09/05/24 1023 Medication Sig Last Dose Taking telmisartan (MICARDIS) 40 mg tablet Take 40 mg by mouth once daily. Taking Yes insulin NPH human isophane (NOVOLIN N FLEXPEN SUBCUTANEOUS) Inject subcutaneously. Taking Yes omega-3 fatty acids (SUPER OMEGA-3 ORAL) Take by mouth twice daily. Taking Yes glipiZIDE (GLUCOTROL) 5 mg tablet Take 5 mg by mouth three times daily. Taking Yes aspirin, enteric coated (ASPIRIN, ENTERIC COATED) 81 mg EC tablet Take 81 mg by mouth once daily. Taking Yes metFORMIN (GLUCOPHAGE) 1,000 mg tablet Take 1,000 mg by mouth three times daily. Taking Yes No medication comments found. ALLERGIES Allergen Reactions Lisinopril Unknown Bwmqvze-Svx-Tru Red* Unknown Objective PHYSICAL EXAM: General: alert and oriented (x3), healthy appearance and obese. Pertinent negatives noted - not distressed. Skin: normal color, no rash or lesions. HEENT: EOM intact and pupils equal round. Pertinent negatives noted - no carotid bruit. Cardiovascular: regular rate and rhythm, normal S1 and S2, no rub, murmurs, or gallop. Respiratory: normal breath sounds, no wheezes or crackles. No chest wall deformity or tenderness. Abdomen: soft. Pertinent negatives noted - not tender. Extremities: no deformity, no edema or tenderness, no joint swelling or clubbing. Neurological: normal cognition and motor skills. Gait normal. No weakness or sensory deficit. PAIN ASSESSMENT: VITALS: BP 152/76 Pulse 86 Temp (Src) 98.7 (Temporal Artery) Resp 16 Wt 208 lb 6.4 oz (94.5kg) SpO2 95% Diagnostic tests reviewed for today's visit: Lab Value Units Date High Low HB 14.5 g/dL 09/05/2024 17.0 13.0 HCT 43.8 % 09/05/2024 51.0 39.0 WBC 5.62 k/uL 09/05/2024 11.00 3.70 PLT 266 k/uL 09/05/2024 400 150 NA No results within date range. K No results within date range. GLUC No results within date range. BUN No results within date range. CREAT No results within date range. PTSEC No results within date range. INR No results within date range. APTT No results within date range. ALT No results within date range. AST No results within date range. TBILI No results within date range. TSH No results within date range. Lab Value Units Date High Low HCGQT No results within date range. UHCG No results within date range. HCG, BODY* No results within date range. Lab Value Units Date High Low ABORHD No results within date range. ABSCREEN No results within date range. No results found for: HBA1C Recent Results (from the past 8760 hour(s)) ECG COMPLETE Collection Time: 09/05/24 10:47 AM Result Value Ventricular Rate 85 Atrial Rate 85 P-R Interval 138 QRS Duration 92 QT Interval 378 QTC Calculation (Bazett) 449 Calculated P [place] 14 Calculated R [place] -41 Calculated T [place] 35 Impression NORMAL SINUS RHYTHM LEFT AXIS DEVIATION INCOMPLETE RIGHT BUNDLE BRANCH BLOCK ABNORMAL ECG No results found for this or any previous visit (from the past 04971 hour(s)). Instructions Given to Patient: Instructions located in the after visit summary. Patient given verbal and written preop instructions and voices comprehension and compliance. SIGNATURE: Tatiana Carrero APRN.CNP PATIENT NAME: Huber Peterson DATE: September 05, 2024 TIME: 9:38 AM PAGER/CONTACT #: [id number] History and physical note* Tatiana Carrero APRN.CNP - 09/05/2024 9:38 AM EST Images from the original note were not included. [facility] HISTORY AND PHYSICAL EXAMINATION SERVICE DATE: 09/05/2024 SERVICE TIME: 10:27 AM PRIMARY CARE PHYSICIAN: Umesh Palomino, DO Assessment Patient has the following medical conditions which may affect emile-operative course: AF (paroxysmal atrial fibrillation) (HCC) Assessment: s/p ablation 2015, daily ASA, following Dr. Khanh Starr, has pending f/u appt 10/2024, last echo 2014 on file EF 60%, normal systolic diastolic fx and valvular function, scanned into epic Essential hypertension Assessment: controlled on rx Last 14 BP Last 14 Encounter BP Readings: Date: BP: 09/05/2024 152/76 07/22/2024 200/81[MD aware[ 03/13/2023 150/84 10/08/2021 170/90 10/16/2020 164/84 Type 2 diabetes mellitus without complication (HCC) Assessment: IDDM and oral agent, new A1c pending Sleep apnea Assessment: non-compliant with CPAP, s/p uvelectomy BMI 30.0-30.9,adult Assessment: Body mass index is 30.78 kg/m . Incomplete RBBB Assessment: per EKG, asymptomatic BPH (benign prostatic hyperplasia) Assessment: no tx, reports hesitancy in the AM Recent URI Assessment: abnormal lung sounds in bilateral bases right>left, CXR pending. Pt states cough several weeks, states feels like he is slowly improving, wet/deep cough during exam, pulse ox 95% on RA Garcia Activity Status Index: METS: Climb a flight of stairs or walk up a hill (5.50 METs) DASI Score: 5.5 Patient denies any chest pain or undue shortness of breath with the above physical activity. Clinical Frailty Scale: 3. Well, with treated comorbid disease STOP-Bang Score: Snores loudly Has been observed to stop breathing or choking/gasping during sleep Has or is being treated for high blood pressure Patient over 50 years old Has a large neck Male patient Denies feeling tired, fatigued, or sleepy during the daytime BMI less than or equal to 35 kg/m^2 STOP-Bang Score: 6 [id number] Score: Age: 65-74 Sex: male CHF history: No Hypertension history: Yes Stroke/TIA/thromboembolism history: No Vascular disease history: No Diabetes history: Yes [id number] Score: 3 ARISCAT Score: Age: 51-80 Preoperative SpO2: 91-95% Respiratory infection in the last month: No Preoperative anemia: No Surgical incision: peripheral Duration of surgery: <2 hrs Emergency procedure: No ARISCAT Score: 11 ANESTHESIA FINDINGS: Intubation History: No history of difficult intubation Significant Anesthesia Considerations: none Airway History: No history of difficult airway I - PHYSICAL EVALUATION AIRWAY Patient intubated: No. Tracheostomy tube not present Mallampati: II. TM distance: >3 FB. Neck ROM: full ROM without neurological symptoms. Mouth opening: adequate. Short neck: no. Thick neck: yes Jackson present: yes Lip Bite Test: I Microretrognathia/Micronagthia/Recessed Chin: No DENTAL Dental findings: teeth intact. II - ANESTHESIA PLAN Anesthetic Plan: other Beta Gillian Monitoring Plan Post Procedure Analgesic Plan Prepared for Surgery: optimally prepared for surgery, pending [see comment]. Labs, EKG and CXR CONSULTS: Patient does not require consults for optimization at this time Planned Anesthetic: other anesthesia choice The Following Tests/Procedures Have Been Initiated: Orders Placed This Encounter XR CHEST 2V FRONTAL/LAT Standing Status: Future Number of Occurrences: 1 Standing Expiration Date: 10/05/2025 >CBC + AUTO DIFF Standing Status: Future Number of Occurrences: 1 Standing Expiration Date: 12/05/2024 >CMP Standing Status: Future Number of Occurrences: 1 Standing Expiration Date: 12/05/2024 PSA/Prostate Specific Antigen Screening Standing Status: Future Number of Occurrences: 1 Standing Expiration Date: 12/05/2024 HGB A1C Standing Status: Future Number of Occurrences: 1 Standing Expiration Date: 12/05/2024 ECG COMPLETE Standing Status: Future Standing Expiration Date: 09/05/2025 REASON FOR VISIT: Huber Peterson is a 74 year old male who is scheduled for Procedure(s): INSERTION TRANSPERINEAL NEEDLES OR CATHETERS PROSTATE FOR INTERSTITIAL RADIOELEMENT APPLICATION (N/A) ULTRASOUND TRANSRECTAL PROSTATE (N/A) CYSTOSCOPY FLEXIBLE (N/A) APPLICATION INTERSTITIAL RADIATION SOURCE COMPLEX (N/A) ULTRASONIC GUIDANCE FOR INTERSTITIAL RADIO ELEMENT APPLICATION (N/A) at the request of Dr. Fernandez Marte for consultation. My final recommendation will be communicated back to the requesting physicianby way of shared medical record or letter. Subjective The patient has the following: COVID-19 Immunization Status Overdue - Covid-19 Vaccine (1 - 2024-25 season) Never done No completion, postpone, frequency change, or communication history exists for this topic. CHIEF COMPLAINT: Pre-op exam HPI: Huber Peterson is a 74 year old seen for PAC due to scheduled above surgery because of prostate CA. 07/22/2024, Dr. Fernandez Marte HISTORY OF PRESENT ILLNESS: Mr. Peterson is a 74 year old and presents with spouse. Newly diagnosed CaP. NCCN CRITERIA VALUES Clinical Stage (AJCC 7th Edition) T2a, N0, M0 = stage IIIC [any T, N0, M0, any PSA, GG 5] (AJCC 8thed.) Previous PSA Score(s) (PSA Should Be Within 3 Months of Biopsy) Outside Result: 13.27 ng/mL Result Date: April 30, 2024 Date of Biopsy June 04, 2024 Type of Biopsy TRUS Random Biopsy Quique/ISUP Group 4 + 5 = 9 (Grade Group 5) Total # of Biopsy Cores 6 Total # of Positive Biopsy Cores 3 Greatest % Cancer in Any Single Core 90% PSA Density Not Available 2016 NCCN Risk Group High Risk Group PERTINENT HISTORY: Urinary frequency (D/N): 6/0 Dysuria: No Incontinence: No Hematuria: No Baseline Urinary Function: 1- No pads AUA QUESTIONNAIRE (Symptoms Prior to Biopsy): Incomplete Emptyin (less than 1 time in 5) Frequency (within 2 hours of previous void): 0 (not at all) Intermittency: 0 (not at all) Urgency (difficulty postponing urination): 0 (not at all) Weak Stream: 1 (less than 1 time in 5) Strainin (less than 1 time in 5) Nocturia: 0 (none) - Total AUA Score: 3 BASELINE ERECTILE FUNCTION: 4- Diminished but unsatisfactory for intercourse PREVIOUS TREATMENTS: None TESTING TO DATE: PET Scan Results: Prostate-only uptake, no evidence of metastases. GENOMIC TESTING: None REVIEW OF SYSTEMS: General: No weight loss, malaise or fevers. Neurological: No history of TIA's, stroke, PATENT LEATHER SORTER tumor, impaired sensorium, hemiplegia, paraplegia orquadraplegia. No neurological symptoms or problems. Respiratory: Positive for: URI < 2 weeks, obstructive sleep apnea and CPAP/BiPAP noncompliant. Negative for: asthma, COPD, current cough, dyspnea, pneumonia within 6 weeks and tobacco use. Cardiovascular: Positive for: anticoagulation therapy (ASA), atrial fibrillation (paroxymal, s/p ablation), hypertension and murmur/valvular heart disease Negative for: abdominal aortic aneurysm, AICD/PPM, angina, arrhythmia, CAD, chest pain, CHF, congenital heart defect, DVT/PE, hyperlipidemia, recent UT, PTCA, PVD, open heart surgery and valve surgery. GI: No history of GI symptoms or problems. No history of esophageal varices, recent ascites, or ETOH greater than 2 drinks per day. : Positive for: BPH and hesitancy. Negative for: nephrolithiasis, renal failure and urinary tract infection. Endocrine: Positive for: diabetes mellitus. Patient's diabetes mellitus is controlled by insulin and oral agents. Negative for: hypothyroidism. Hematology: Positive for: chronic anti-coagulation/platelet meds. Patient is on anti- coagulation/platelet medication(s): Aspirin. Negative for: anemia, bruises/bleeds easily and transfusion of at least 4 units within 72 hours prior to surgery. Oncology: See HPI. Psych: No history of psychiatric symptoms or problems. Musculoskeletal: Negative for joint pain or swelling, back pain or muscle pain. Skin: Negative for lesions, rash and itching. Implanted Devices: No implanted devices. 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 on Xarelto 20mg Nonrheumatic atrial fibrillation (HCC) Personal history of other diseases of the circulatory system Prostate cancer (HCC) Sleep apnea Status post cryoablation 10/29/2015 successful isolation of all four pulmonary veins PAST SURGICAL HISTORY Procedure Laterality Date LEG SURGERY HX 10/2017 leg fx PAST SURGICAL HISTORY OF surgery for sleep apnea TONSILLECTOMY HX FAMILY HISTORY Problem Relation Age of Onset Cancer Mother Heart Attack Father 66 other (arrhythmias) Sister other (rheumatic fever) Brother Social History Tobacco Use Smoking status: Never Smokeless tobacco: Never Vaping Use Vaping status: Never Used Substance Use Topics Alcohol use: Never Drug use: Never Prior to Admission medications as of 09/05/24 1023 Medication Sig Last Dose Taking telmisartan (MICARDIS) 40 mg tablet Take 40 mg by mouth once daily. Taking Yes insulin NPH human isophane (NOVOLIN N FLEXPEN SUBCUTANEOUS) Inject subcutaneously. Taking Yes omega-3 fatty acids (SUPER OMEGA-3 ORAL) Take by mouth twice daily. Taking Yes glipiZIDE (GLUCOTROL) 5 mg tablet Take 5 mg by mouth three times daily. Taking Yes aspirin, enteric coated (ASPIRIN, ENTERIC COATED) 81 mg EC tablet Take 81 mg by mouth once daily. Taking Yes metFORMIN (GLUCOPHAGE) 1,000 mg tablet Take 1,000 mg by mouth three times daily. Taking Yes No medication comments found. ALLERGIES Allergen Reactions Lisinopril Unknown Qpevuap-Yqh-Pyz Red* Unknown Objective PHYSICAL EXAM: General: alert and oriented (x3), healthy appearance and obese. Pertinent negatives noted - not distressed. Skin: normal color, no rash or lesions. HEENT: EOM intact and pupils equal round. Pertinent negatives noted - no carotid bruit. Cardiovascular: regular rate and rhythm, normal S1 and S2, no rub, murmurs, or gallop. Respiratory: normal breath sounds, no wheezes or crackles. No chest wall deformity or tenderness. Abdomen: soft. Pertinent negatives noted - not tender. Extremities: no deformity, no edema or tenderness, no joint swelling or clubbing. Neurological: normal cognition and motor skills. Gait normal. No weakness or sensory deficit. PAIN ASSESSMENT: VITALS: BP 152/76 Pulse 86 Temp (Src) 98.7 (Temporal Artery) Resp 16 Wt 208 lb 6.4 oz (94.5kg) SpO2 95% Diagnostic tests reviewed for today's visit: Lab Value Units Date High Low HB 14.5 g/dL 09/05/2024 17.0 13.0 HCT 43.8 % 09/05/2024 51.0 39.0 WBC 5.62 k/uL 09/05/2024 11.00 3.70 PLT 266 k/uL 09/05/2024 400 150 NA No results within date range. K No results within date range. GLUC No results within date range. BUN No results within date range. CREAT No results within date range. PTSEC No results within date range. INR No results within date range. APTT No results within date range. ALT No results within date range. AST No results within date range. TBILI No results within date range. TSH No results within date range. Lab Value Units Date High Low HCGQT No results within date range. UHCG No results within date range. HCG, BODY* No results within date range. Lab Value Units Date High Low ABORHD No results within date range. ABSCREEN No results within date range. No results found for: HBA1C Recent Results (from the past 8760 hour(s)) ECG COMPLETE Collection Time: 09/05/24 10:47 AM Result Value Ventricular Rate 85 Atrial Rate 85 P-R Interval 138 QRS Duration 92 QT Interval 378 QTC Calculation (Bazett) 449 Calculated P [place] 14 Calculated R [place] -41 Calculated T [place] 35 Impression NORMAL SINUS RHYTHM LEFT AXIS DEVIATION INCOMPLETE RIGHT BUNDLE BRANCH BLOCK ABNORMAL ECG No results found for this or any previous visit (from the past 52770 hour(s)). Instructions Given to Patient: Instructions located in the after visit summary. Patient given verbal and written preop instructions and voices comprehension and compliance. SIGNATURE: Tatiana Carrero APRN.CNP PATIENT NAME: Huber Peterson DATE: September 05, 2024 TIME: 9:38 AM [facility]AGER/CONTACT #[facility] History of Present illness Narrative* Fernandez Marte MD - 07/22/2024 11:00 AM EST PROSTATE CANCER INITIAL VISIT SERVICE DATE: July 22, 2024 PRIMARY CARE PROVIDER: Umesh Palomino DO REFERRING PROVIDER: Umesh Palomino [address] [address] Consult requested for an opinion regarding the evaluation and treatment of prostate cancer. My final impression and recommendations will be communicated back to the requesting physician [facility] or letter via [place] mail. I spent 60 minutes in the visit, with more than 50% of the total [id number] time of the visit in counseling / coordination of care. SUBJECTIVE HISTORY OF PRESENT ILLNESS: Mr. Peterson is a 74 year old and presents with spouse. Newly diagnosed CaP. NCCN CRITERIA VALUES Clinical Stage (AJCC 7th Edition) T2a, N0, M0 = stage IIIC [any T, N0, M0, any PSA, GG 5] (AJCC 8thed.) Previous PSA Score(s) (PSA Should Be Within 3 Months of Biopsy) Outside Result: 13.27 ng/mL Result Date: April 30, 2024 Date of Biopsy June 04, 2024 Type of Biopsy TRUS Random Biopsy Sigel/ISUP Group 4 + 5 = 9 (Grade Group 5) Total # of Biopsy Cores 6 Total # of Positive Biopsy Cores 3 Greatest % Cancer in Any Single Core 90% PSA Density Not Available 2016 NCCN Risk Group High Risk Group PERTINENT HISTORY: Urinary frequency (D/N): 6/0 Dysuria: No Incontinence: No Hematuria: No Baseline Urinary Function: 1- No pads AUA QUESTIONNAIRE (Symptoms Prior to Biopsy): Incomplete Emptyin (less than 1 time in 5) Frequency (within 2 hours of previous void): 0 (not at all) Intermittency: 0 (not at all) Urgency (difficulty postponing urination): 0 (not at all) Weak Stream: 1 (less than 1 time in 5) Strainin (less than 1 time in 5) Nocturia: 0 (none) - Total AUA Score: 3 BASELINE ERECTILE FUNCTION: 4- Diminished but unsatisfactory for intercourse PREVIOUS TREATMENTS: None TESTING TO DATE: PET Scan Results: Prostate-only uptake, no evidence of metastases. 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 Nonrheumatic atrial fibrillation (HCC) Personal history of other diseases of the circulatory system Sleep apnea Status post cryoablation 10/29/2015 successful isolation of all four pulmonary veins PAST SURGICAL HISTORY Procedure Laterality Date LEG SURGERY HX 10/2017 leg fx PAST SURGICAL HISTORY OF surgery for sleep apnea TONSILLECTOMY HX FAMILY HISTORY Problem Relation Age of Onset Cancer Mother Heart Attack Father 66 other (arrhythmias) Sister other (rheumatic fever) Brother KNOWN FAMILIAL HISTORY: Prostate Cancer in brother Social History Tobacco Use Smoking status: Never Smokeless tobacco: Never Substance Use Topics Alcohol use: Never Drug use: Never ALLERGIES Allergen Reactions Lisinopril Unknown Xtswimb-Kyj-Wfc Red* Unknown MEDICATIONS: telmisartan (MICARDIS) 40 mg tablet Take 40 mg by mouth once daily. insulin NPH human isophane (NOVOLIN N FLEXPEN SUBCUTANEOUS) Inject subcutaneously. omega-3 fatty acids (SUPER OMEGA-3 ORAL) Take by mouth twice daily. glipiZIDE (GLUCOTROL) 5 mg tablet Take 5 mg by mouth three times daily. aspirin, enteric coated (ASPIRIN, ENTERIC COATED) 81 mg EC tablet Take 81 mg by mouth once daily. metFORMIN (GLUCOPHAGE) 1,000 mg tablet Take 1,000 mg by mouth three times daily. OBJECTIVE REVIEW OF SYSTEMS: GENERAL: Negative for fevers, chills, or night sweats. HEENT: Negative for sudden vision or hearing changes. RESPIRATORY: Negative for cough or shortness of breath. CARDIAC: Negative for chest pain, palpitations, murmurs, or syncopal episodes. GASTROINTESTINAL: Negative for diarrhea, constipation, abdominal pain and poor appetite. GENITOURINARY: See HPI. MUSCULOSKELETAL: See HPI. NEUROLOGIC: Negative for dizziness, headache, weakness or numbness. HEMATOLOGIC: Negative for bleeding or easy bruising. SKIN: Negative for rashes or other skin changes. LYMPHATIC: No masses noted. EXTREMITIES: No swelling of extremities. ASSESSMENT PHYSICAL EXAM: There were no vitals taken for this visit. [facility] [employer]: 0- Fully active, able to carry on all pre- disease performance w/o restriction. GENERAL APPEARANCE: Alert and oriented. NECK: Normal ROM. No palpable cervical or supraclavicular adenopathy. LUNGS: Normal breath sounds, no wheezes or crackles. CARDIAC: Regular rate and rhythm. ABDOMEN: Soft, non-tender, no rigidity. MUSCULOSKELETAL: No edema. Normal ROM in extremities. No bone or spine tenderness. NEUROLOGIC: Strength intact and symmetric. Sensation intact. CN II-XII intact. Gait normal. No focal deficits. SKIN: Skin color, texture, turgor normal. No suspicious rashes or lesions. LYMPHATIC: No palpable nodes in cervical or axillae areas. Groin exam deferred. GENITOURINARY: Deferred RECTAL: T2a prior to biopsy ACTIVE PROBLEM LIST Sleep Apnea Status Post Cryoablation Custodial (Current) Use of Anticoagulants History of Stress Test History of Electrophysiologic Study History of Echocardiogram Essential Hypertension Type 2 Diabetes Mellitus Without Complication (Hcc) Aortic Valve Sclerosis Af (Paroxysmal Atrial Fibrillation) (Hcc) Non-Smoker IMPRESSION/PLAN: The treatment options for prostate cancer including active surveillance, radical prostatectomy, brachytherapy, and external beam radiation were reviewed with the patient. He desires to proceed with the plan outlined below. BRACHYTHERAPY MANAGEMENT: Mr. Peterson has decided to undergo brachytherapy, and understands the potential risks and benefits of this procedure. Comorbidities, as noted in problem list, are well managed and do not require further evaluation. Malignant Neoplasm of Prostate (C61) 2017 NCCN Risk Group: High Risk Group Treatment Chosen: brachytherapy Clinical State: Localized Cancer - New Diagnosis NARRATIVE SUMMARY: Newly diagnosed CaP. ORDERS: No orders entered today Follow-up: Return for procedure as discussed above The documentation for this note was completed by Fernandez Marte MD acting as scribe for Fernandez Marte MD. July 22, 2024 11:23 AM. SIGNATURE: Fernandez Marte MD PATIENT NAME: Huber Peterson DATE: July 22, 2024 TIME: 10:46 AM etx [id number] documented [facility]24 NoteHNO ID: [id number] Author: FERNANDEZ MARTE MD Service: ? Author Type: Physician Type: Progress Notes Filed: 07/22/2024 11:35 Note Text: PROSTATE CANCER INITIAL VISIT SERVICE DATE: July 22, 2024 PRIMARY CARE PROVIDER: Umesh Palomino DO REFERRING PROVIDER: Umesh Palomino [id number] [address] Consult requested for an opinion regarding the evaluation and treatment of prostate cancer. My final impression and recommendations will be communicated back to the requesting physician by way of the shared medical record or letter via US mail. I spent 60 minutes in the visit, with more than 50% of the total [id number] time of the visit in counseling / coordination of care. SUBJECTIVE HISTORY OF PRESENT ILLNESS: Mr. Peterson is a 74 year old and presents with spouse. Newly diagnosed CaP. NCCN CRITERIA VALUES Clinical Stage (AJCC 7th Edition) T2a, N0, M0 = stage IIIC [any T, N0, M0, any PSA, GG 5] (AJCC 8th ed.) Previous PSA Score(s) (PSA Should Be Within 3 Months of Biopsy) Outside Result: 13.27 ng/mL Result Date: April 30, 2024 Date of Biopsy June 04, 2024 Type of Biopsy TRUS Random Biopsy Quique/ISUP Group 4 + 5 = 9 (Grade Group 5) Total # of Biopsy Cores 6 Total # of Positive Biopsy Cores 3 Greatest % Cancer in Any Single Core 90% PSA Density Not Available 2016 NCCN Risk Group High Risk Group PERTINENT HISTORY: Urinary frequency (D/N): 6/0 Dysuria: No Incontinence: No Hematuria: No Baseline Urinary Function: 1- No pads AUA QUESTIONNAIRE (Symptoms Prior to Biopsy): Incomplete Emptyin (less than 1 time in 5) Frequency (within 2 hours of previous void): 0 (not at all) Intermittency: 0 (not at all) Urgency (difficulty postponing urination): 0 (not at all) Weak Stream: 1 (less than 1 time in 5) Strainin (less than 1 time in 5) Nocturia: 0 (none) - Total AUA Score: 3 BASELINE ERECTILE FUNCTION: 4- Diminished but unsatisfactory for intercourse PREVIOUS TREATMENTS: None TESTING TO DATE: PET Scan Results: Prostate-only uptake, no evidence of metastases. 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 Nonrheumatic atrial fibrillation (HCC) Personal history of other diseases of the circulatory system Sleep apnea Status post cryoablation 10/29/2015 successful isolation of all four pulmonary veins PAST SURGICAL HISTORY Procedure Laterality Date LEG SURGERY HX 10/2017 leg fx PAST SURGICAL HISTORY OF surgery for sleep apnea TONSILLECTOMY HX FAMILY HISTORY Problem Relation Age of Onset Cancer Mother Heart Attack Father 66 other (arrhythmias) Sister other (rheumatic fever) Brother KNOWN FAMILIAL HISTORY: Prostate Cancer in brother Social History Tobacco Use Smoking status: Never Smokeless tobacco: Never Substance Use Topics Alcohol use: Never Drug use: Never ALLERGIES Allergen Reactions Lisinopril Unknown Tjbnxak-Dom-Mpi Red* Unknown MEDICATIONS: telmisartan (MICARDIS) 40 mg tablet Take 40 mg by mouth once daily. insulin NPH human isophane (NOVOLIN N FLEXPEN SUBCUTANEOUS) Inject subcutaneously. omega-3 fatty acids (SUPER OMEGA-3 ORAL) Take by mouth twice daily. glipiZIDE (GLUCOTROL) 5 mg tablet Take 5 mg by mouth three times daily. aspirin, enteric coated (ASPIRIN, ENTERIC COATED) 81 mg EC tablet Take 81 mg by mouth once daily. metFORMIN (GLUCOPHAGE) 1,000 mg tablet Take 1,000 mg by mouth three times daily. OBJECTIVE REVIEW OF SYSTEMS: GENERAL: Negative for fevers, chills, or night sweats. HEENT: Negative for sudden vision or hearing changes. RESPIRATORY: Negative for cough or shortness of breath. CARDIAC: Negative for chest pain, palpitations, murmurs, or syncopal episodes. GASTROINTESTINAL: Negative for diarrhea, constipation, abdominal pain and poor appetite. GENITOURINARY: See HPI. MUSCULOSKELETAL: See HPI. NEUROLOGIC: Negative for dizziness, headache, weakness or numbness. HEMATOLOGIC: Negative for bleeding or easy bruising. SKIN: Negative for rashes or other skin changes. LYMPHATIC: No masses noted. EXTREMITIES: No swelling of extremities. ASSESSMENT PHYSICAL EXAM: There were no vitals taken for this visit. [facility]: 0- Fully active, able to carry on all pre-disease performance w/o restriction. GENERAL APPEARANCE: Alert and oriented. NECK: Normal ROM. No palpable cervical or supraclavicular adenopathy. LUNGS: Normal breath sounds, no wheezes or crackles. CARDIAC: Regular rate and rhythm. ABDOMEN: Soft, non-tender, no rigidi (more content not included)...[facility]12-10-2024 Telephone encounter Note* Telephone Encounter - Jeremías Ramírez RN - 07/09/2024 4:06 PM EST Email sent to scheduling. Jeremías Ramírez RN [facility] Work Phone: [phone]) 281-525112-10-2024 Miscellaneous Notes* Telephone Encounter - Jeremías Ramírez RN - 07/09/2024 4:06 PM EST Email sent to scheduling. Jeremías Ramírez, RN * Telephone Encounter - OsvaldoVielka Hebert - 07/09/2024 1:28 PM EST Name of Caller: Huber Relationship to Patient: Self Callback Reason for Call: Patient called and would like to see if he is a candidate for Brachy therapy, without a consult. PSA 13 Scheduled for prostatectomy in Aug 2024. He doesn't want that surgery if possible. Dr. Beny Mclaughlin [phone] Had Biopsy in office and PET scan at [facility]. Electronically signed by [facility] Vielka Mahmood at 07/09/2024 1:43 PM EST documented in this encounterProtestant Hospital12-10-2024 Telephone encounter Note * Telephone Encounter - OsvaldoVielka Hebert - 07/09/2024 1:28 PM EST Name of Caller: Huber Relationship to Patient: Self Callback Reason for Call: Patient called and would like to see if he is a candidate for Brachy therapy, without a consult. PSA 13 Scheduled for prostatectomy in Aug 2024. He doesn't want that surgery if possible. Dr. Beny Mclaughlin [phone] Had Biopsy in office and PET scan at [facility]. Electronically signed by [facility] Vielka Mahmood at 07/09/2024 1:43 PM EST [facility] No data available for this section [facility] Evaluation note* Diagnosis Malignant neoplasm of prostate (HCC)- Primary Malignant neoplasm of prostate [facility]* Diagnosis Malignant neoplasm of prostate (HCC)- Primary Malignant neoplasm of prostate Malignant neoplasm of prostate (HCC) Malignant neoplasm of prostate Malignant neoplasm of prostate (HCC)- Primary Malignant neoplasm of prostate [facility]* Diagnosis Malignant neoplasm of prostate (HCC) Malignant neoplasm of prostate Malignant neoplasm of prostate (HCC)- Primary Malignant neoplasm of prostate [facility]* Diagnosis Malignant neoplasm of prostate (HCC)- Primary Malignant neoplasm of prostate Malignant neoplasm of prostate (HCC) Malignant neoplasm of prostate Malignant neoplasm of prostate (HCC)- Primary Malignant neoplasm of prostate documented in this encounter [facility] note* Diagnosis Pre-operative examination- Primary Preoperative examination, unspecified AF (paroxysmal atrial fibrillation) (HCC) Atrial fibrillation Essential hypertension Unspecified essential hypertension Type 2 diabetes mellitus without complication, without long-term current use of insulin (HCC) Sleep apnea, unspecified type BMI 30.0-30.9,adult Body Mass Index 30.0-30.9, adult Incomplete RBBB Right bundle branch block Benign prostatic hyperplasia with urinary hesitancy Recent URI Pre-operative examination Preoperative examination, unspecified Malignant neoplasm of prostate (HCC) Malignant neoplasm of prostate Malignant neoplasm of prostate (HCC)- Primary Malignant neoplasm of prostate * Assessment & Plan Note - Tatiana Carrero APRN.CNP - 09/05/2024 10:26 AM EST Associated Problem(s): Recent URI Assessment: abnormal lung sounds in bilateral bases right>left, CXR pending. Pt states cough several weeks, states feels like he is slowly improving, wet/deep cough during exam, pulse ox 95% on RA * Assessment & Plan Note - Tatiana Carrero APRN.CNP - 09/05/2024 10:24 AM EST Associated Problem(s): BPH (benign prostatic hyperplasia) Assessment: no tx, reports hesitancy in the AM * Assessment & Plan Note - Tatiana Carrero APRN.CNP - 09/05/2024 10:21 AM EST Associated Problem(s): Incomplete RBBB Assessment: per EKG, asymptomatic * Assessment & Plan Note - Tatiana Carrero APRN.CNP - 09/05/2024 10:20 AM EST Associated Problem(s): BMI 30.0-30.9,adult Assessment: Body mass index is 30.78 kg/m . * Assessment & Plan Note - Tatiana Carrero APRN.CNP - 09/05/2024 10:19 AM EST Associated Problem(s): Sleep apnea Assessment: non-compliant with CPAP, s/p uvelectomy * Assessment & Plan Note - Tatiana Carrero APRN.CNP - 09/05/2024 10:19 AM EST Associated Problem(s): Type 2 diabetes mellitus without complication (HCC) Assessment: IDDM and oral agent, new A1c pending * Assessment & Plan Note - Tatiana Carrero APRN.CNP - 09/05/2024 10:19 AM EST Associated Problem(s): Essential hypertension Assessment: controlled on rx Last 14 BP Last 14 Encounter BP Readings: Date: BP: 09/05/2024 152/76 07/22/2024 200/81[MD aware[ 03/13/2023 150/84 10/08/2021 170/90 10/16/2020 164/84 * Assessment & Plan Note - Tatiana Carrero APRN.CNP - 09/05/2024 10:18 AM EST Associated Problem(s): AF (paroxysmal atrial fibrillation) (HCC) Assessment: s/p ablation 2016, daily ASA, following Dr. Khanh Starr, has pending f/u appt 10/2024, last echo 2014 on file EF 60%, normal systolic diastolic fx and valvular function, scanned into epic documented in this encounter [facility] note* Diagnosis Pre-operative examination- Primary Preoperative examination, unspecified AF (paroxysmal atrial fibrillation) (HCC) Atrial fibrillation Essential hypertension Unspecified essential hypertension Type 2 diabetes mellitus without complication, without long-term current use of insulin (HCC) Sleep apnea, unspecified type BMI 30.0-30.9,adult Body Mass Index 30.0-30.9, adult Incomplete RBBB Right bundle branch block Benign prostatic hyperplasia with urinary hesitancy Recent URI Pre-operative examination Preoperative examination, unspecified Malignant neoplasm of prostate (HCC) Malignant neoplasm of prostate Malignant neoplasm of prostate (HCC)- Primary Malignant neoplasm of prostate documented in this encounter [facility] note* Diagnosis Pre-operative examination- Primary Preoperative examination, unspecified AF (paroxysmal atrial fibrillation) (HCC) Atrial fibrillation Essential hypertension Unspecified essential hypertension Type 2 diabetes mellitus without complication, without long-term current use of insulin (HCC) Sleep apnea, unspecified type BMI 30.0-30.9,adult Body Mass Index 30.0-30.9, adult Incomplete RBBB Right bundle branch block Benign prostatic hyperplasia with urinary hesitancy Recent URI Malignant neoplasm of prostate (HCC)- Primary Malignant neoplasm of prostate Malignant neoplasm of prostate (HCC) Malignant neoplasm of prostate Malignant neoplasm of prostate (HCC)- Primary Malignant neoplasm of prostate documented in this encounter [facility] note* Diagnosis Pre-operative examination- Primary Preoperative examination, unspecified AF (paroxysmal atrial fibrillation) (HCC) Atrial fibrillation Essential hypertension Unspecified essential hypertension Type 2 diabetes mellitus without complication, without long-term current use of insulin (HCC) Sleep apnea, unspecified type BMI 30.0-30.9,adult Body Mass Index 30.0-30.9, adult Incomplete RBBB Right bundle branch block Benign prostatic hyperplasia with urinary hesitancy Recent URI Malignant neoplasm of prostate (HCC)- Primary Malignant neoplasm of prostate documented in this encounter [facility] note* Diagnosis Pre-operative examination- Primary Preoperative examination, unspecified AF (paroxysmal atrial fibrillation) (HCC) Atrial fibrillation Essential hypertension Unspecified essential hypertension Type 2 diabetes mellitus without complication, without long-term current use of insulin (HCC) Sleep apnea, unspecified type BMI 30.0-30.9,adult Body Mass Index 30.0-30.9, adult Incomplete RBBB Right bundle branch block Benign prostatic hyperplasia with urinary hesitancy Recent URI AF (paroxysmal atrial fibrillation) (HCC)- Primary Atrial fibrillation Encounter for long-term (current) use of antiplatelets/antithrombotics Status post cryoablation Incomplete RBBB Right bundle branch block Essential hypertension Unspecified essential hypertension History of diabetes mellitus Personal history of other endocrine, metabolic, and immunity disorders Non-smoker Other specified conditions influencing health status documented in this encounter [facility] Outpatient Procedure (Routine) - New Request Specialty Diagnoses / Procedures Referred By Ansley starkey Referred To Contact [facility] [place] Diagnoses Pre-operative examination Procedures ECG COMPLETE ECG ROUTINE ECG W/LEAST 12 LDS W/I&R Tatiana Carrero APRN.CNP [address] [place] [address] [facility] [place] [address] [place] [address] Referral ID Status Reason Start Date Expiration Date Visits Requested Visits Authorized [id number] New Request Auto-Generat ed Referral 09/05/2024 09/05/2025 1 1 [facility] Summary Purpose Family History No Family History Records FoundNo Family History Records FoundNo Family History Records Found No data available for this section No Family History Records FoundNo Family History Records FoundNo Family History Records FoundNo Family History Records Found Advance Directives No Advanced Directives Records FoundNo Advanced Directives Records FoundNo Advanced Directives Records FoundNo Advanced Directives Records FoundNo Advanced Directives Records FoundNo Advanced Directives Records FoundNo Advanced Directives Records Found Reason for Referral Specialty Diagnoses / Procedures Referred By Ansley starkey Referred To Contact Diagnoses Malignant neoplasm of prostate (HCC) Procedures CT SIM PLANNING RADIATION ONCOLOGY THER RAD SIMULAJ-AIDED FIELD SETTING COMPLEX Fernandez Marte MD [address] [place] [address] Referral ID Status Reason Start Date Expiration Date Visits Requested Visits Authorized [id number] New Request PCP Requested Referral 08/02/2024 10/30/2024 1 1 Additional Source Comments (unrecognized sect ion and content) No Status Records FoundNo Status Records FoundNo Status Records FoundNo Status Records FoundNo Status Records FoundNo Status Records FoundNo Status Records Found INFORMATION SOURCE (unrecogn ized section and content) DATE CREATED AUTHOR 01/18/2018 [facility] ([place]) DATE CREATED AUTHOR AUTHOR'S ORGANIZ ATION 05/27/2023 [facility] DATE CREATED AUTHOR AUTHOR'S ORGANIZ ATION 09/07/2024 [facility] DATE CREATED AUTHOR AUTHOR'S ORGANIZ ATION 09/22/2024 [facility] DATE CREATED AUTHOR AUTHOR'S ORGANIZ ATION 09/25/[address] [facility] DATE CREATED AUTHOR AUTHOR'S ORGANIZ ATION 12/05/2024 [facility] DATE CREATED AUTHOR AUTHOR'S ORGANIZ ATION 04/18/2025 [facility] Source Comments (unrecognize d section and content) In the event this informatio n is protected by the Federal Confidentiality of Alcohol and Drug Abuse Patient Records regulations: The Federal rules restrict any use of the information to criminally investigate or prosecute any alcohol or drug abuse patient.[facility] HospitalIn the event this information is protected by the Federal Confidentiality of Alcohol and Drug Abuse Patient Records regulations: The Federal rules restrict any use of the information to criminally investigate or prosecute any alcohol or drug abuse patient.[facility] HospitalIn the event this information is protected by the Federal Confidentiality of Alcohol and Drug Abuse Patient Records regulations: The Federal rules restrict any use of the information to criminally investigate or prosecute any alcohol or drug abuse patient.[facility] HospitalIn the event this information is protected by the Federal Confidentiality of Alcohol and Drug Abuse Patient Records regulations: The Federal rules restrict any use of the information to criminally investigate or prosecute any alcohol or drug abuse patient.[facility] HospitalIn the event this information is protected by the Federal Confidentiality of Alcohol and Drug Abuse Patient Records regulations: The Federal rules restrict any use of the information to criminally investigate or prosecute any alcohol or drug abuse patient.[facility] HospitalIn the event this information is protected by the Federal Confidentiality of Alcohol and Drug Abuse Patient Records regulations: The Federal rules restrict any use of the information to criminally investigate or prosecute any alcohol or drug abuse patient.[facility] HospitalIn the event this information is protected by the Federal Confidentiality of Alcohol and Drug Abuse Patient Records regulations: The Federal rules restrict any use of the information to criminally investigate or prosecute any alcohol or drug abuse patient.[facility] HospitalIn the event this information is protected by the Federal Confidentiality of Alcohol and Drug Abuse Patient Records regulations: The Federal rules restrict any use of the information to criminally investigate or prosecute any alcohol or drug abuse patient.[facility] HospitalIn the event this information is protected by the Federal Confidentiality of Alcohol and Drug Abuse Patient Records regulations: The Federal rules restrict any use of the information to criminally investigate or prosecute any alcohol or drug abuse patient.[facility] HospitalIn the event this information is protected by the Federal Confidentiality of Alcohol and Drug Abuse Patient Records regulations: The Federal rules restrict any use of the information to criminally investigate or prosecute any alcohol or drug abuse patient.[facility] HospitalIn the event this information is protected by the Federal Confidentiality of Alcohol and Drug Abuse Patient Records regulations: The Federal rules restrict any use of the information to criminally investigate or prosecute any alcohol or drug abuse patient.[facility] HospitalIn the event this information is protected by the Federal Confidentiality of Alcohol and Drug Abuse Patient Records regulations: The Federal rules restrict any use of the information to criminally investigate or prosecute any alcohol or drug abuse patient.[facility] HospitalIn the event this information is protected by the Federal Confidentiality of Alcohol and Drug Abuse Patient Records regulations: The Federal rules restrict any use of the information to criminally investigate or prosecute any alcohol or drug abuse patient.[facility] HospitalIn the event this information is protected by the Federal Confidentiality of Alcohol and Drug Abuse Patient Records regulations: The Federal rules restrict any use of the information to criminally investigate or prosecute any alcohol or drug abuse patient.[facility] HospitalIn the event this information is protected by the Federal Confidentiality of Alcohol and Drug Abuse Patient Records regulations: The Federal rules restrict any use of the information to criminally investigate or prosecute any alcohol or drug abuse patient.[facility] HospitalIn the event this information is protected by the Federal Confidentiality of Alcohol and Drug Abuse Patient Records regulations: The Federal rules restrict any use of the information to criminally investigate or prosecute any alcohol or drug abuse patient.[facility] HospitalIn the event this information is protected by the Federal Confidentiality of Alcohol and Drug Abuse Patient Records regulations: The Federal rules restrict any use of the information to criminally investigate or prosecute any alcohol or drug abuse patient.[facility] HospitalIn the event this information is protected by the Federal Confidentiality of Alcohol and Drug Abuse Patient Records regulations: The Federal rules restrict any use of the information to criminally investigate or prosecute any alcohol or drug abuse patient.[facility] Reason for Visit (unrecogniz ed section and content) Reason Comments Brass Plater - Other Reason Onset Date Comments Simulation Request Form 08/01/2024 Reason Comments Pre-Op Exam Reason Comments Brachytherapy Brass Plater - Other Reason Comments Post Radiation Treatment Follow Up Brass Plater - Other Reason Comments Established Patient Reason Comments Patient Question Reason Comments Established Patient Follow-Up 1 year f/u RAINE 02/2023 Care Teams (unrecognized sec tion and content) Gre[employer] And Tallow Pumper Relationship Specialty [place] [address] [place], [place] [address] PCP - General Internal Medicine 10/16/20 [employer] T[employer] Pumper Relationship Specialty Start [place] [address] [place] [address] PCP - General Internal Medicine 10/16/20 Gre[employer] And Tallow Pumper Relationship Specialty Start [place] [address] [place], [place] [address] PCP - General Internal Medicine 10/16/20 Grease And Tallow Pumper Relationship Specialty Start Date End Date Umesh Palomino, [address] [place], [place] [address] PCP - General Internal Medicine 10/16/20 Gre[employer] And Tallow Pumper Relationship Specialty Start [place] [address] [place], [place] [address] PCP - General Internal Medicine 10/16/20 Gre[employer] And Tallow Pumper Relationship Specialty Start [place] [address] [address] PCP - General Internal Medicine 10/16/20 Grease And Tallow Pumper Relationship Specialty Start [place] [address] [address] PCP - General Internal Medicine 10/16/20 Gre[employer] And Tallow Pumper Relationship Specialty Start [place] [address] [address] PCP - General Internal Medicine 10/16/20 Gre[employer] And Tallow Pumper Relationship Specialty Start [place] [address] [address] PCP - General Internal Medicine 10/16/20 Grease And Tallow Pumper Relationship Specialty Start [place] [address] [address] PCP - General Internal Medicine 10/16/20 Grease And Tallow Pumper Relationship Specialty Start [place] [address] [address] PCP - General Internal Medicine 10/16/20 Grease And Tallow Pumper Relationship Specialty Start [place] [address] [address] PCP - General Internal Medicine 10/16/20 Grease And Tallow Pumper Relationship Specialty Start [place] [address] [address] PCP - General Internal Medicine 10/16/20 Grease And Tallow Pumper Relationship Specialty Start Date End [place] [address] [address] PCP - General Internal Medicine 10/16/20 Grease And Tallow Pumper Relationship Specialty Start Date End Date Shannon Doe, [address] [address] [place] [address] PCP - General Family Medicine 11/27/24 FOR RECORDS PERTAINING TO PATIENTS WHO ARE OR HAVE BEEN ENROLLED IN A CHEMICAL DEPENDENCY/SUBSTANCEABUSE PROGRAM, SOME INFORMATION MAY BE OMITTED. This clinical summary was aggregated from multiple sources. Caution should be exercised in using it in the provision of clinical care. This summary normalizes information from multiple sources, and as a consequence, information in this document may materially change the coding, format and clinical context of patient data. In addition, data may be omitted in some cases. CLINICAL DECISIONS SHOULD BE BASED ON THE PRIMARY CLINICAL RECORDS. [facility]. provides no warranty or guarantee of the accuracy or completeness of information in this document.
--- NOTE | 2025-06-25 16:56 | STRESSREP_ITS ---
Stress Test Report Exercise myocardial perfusion stress test. 74-year-old man with a history of chest pain. Stress protocol: Resting EKG demonstrates normal sinus rhythm with occasional PVCs with a rate of 72 bpm resting blood pressure is 176/86 mmHg. The patient exercised according to the regular Marc protocol for a total duration of 4 minutes and 15 seconds attaining a maximum heart rate of 166 bpm which was 113% of maximum predicted heart rate; the maximum workload was 7 metabolic equivalents. At rest there were no ST or T wave changes noted to suggest ischemia and at peak exercise upsloping ST changes only were noted which did not meet the criteria for ischemia. Frequent premature ventricular complexes and some couplets activity was noted. No clinical angina was noted the test was terminated due to the target heart rate being achieved/fatigue. The peak blood pressure was 240/110 mmHg. Rate- pressure product was 36,700. Myocardial perfusion protocol. 14.7 mCi of technetium 99m sestamibi was injected at rest. The patient exercised according to regular Marc protocol for total duration of 4 minutes and 15 seconds and at peak exercise 45 mCi of technetium 99m sestamibi was injected stress images were obtained stress and rest images were reconstructed in comparing the short axis vertical long and horizontal long axis. Gated images were also obtained. Perfusion SPECT analysis: Review of the stress images demonstrate normal uptake of tracer noted in all areas of the myocardium. The resting images similarly demonstrate normal uptake of tracer noted in all areas of the myocardium. No areas of reversibility are noted to suggest ischemia no previous infarct was noted. Gated SPECT analysis: The gated ejection fraction is 55%. Conclusion: Normal exercise myocardial perfusion stress test at a moderate workload.
== END | disposition home or self-care (01) ==
PROVIDERS: PCP Nurse Practitioner Family; Referring Provider Emergency Medicine; Visit Provider Emergency Medicine
DX: R07.9 Chest pain, unspecified (principal)
CPT/HCPCS: 78452; 93017; A9500; A4216